=== PATIENT | male | born 1930 | race Caucasian/White ===

== ENCOUNTER 2017-03-22 14:16 | Inpatient (IN) ==
[2017-03-22 15:56] LABS: Basophils % 0.4 %; Eosinophils # 0.3 K/mcL (0.0-0.6); Eosinophils % 4.3 %; Hematocrit 35.5 % (37.5-50.1); Hemoglobin 11.2 g/dL (12.9-16.9); Immature Granulocytes % 0.4 % (0-4); Lymphocytes # 1.9 K/mcL (0.6-4.6); Lymphocytes % 28.5 %; Mean Corpuscular HGB Conc 31.5 g/dL (31.6-35.5); Mean Corpuscular Hemoglobin 28.6 pg (28.0-33.3); Mean Corpuscular Volume 90.6 fL (83.0-100.0); Mean Platelet Volume 9.5 fL (9.4-12.4); Monocytes # 0.6 K/mcL (0.0-1.3); Monocytes % 9.3 %; Neutrophils # 3.9 K/mcL (1.6-8.9); Platelet Count 265 K/mcL (140-400); Red Blood Count 3.92 M/mcL (4.19-5.50); Red Cell Distribution Width 14.6 % (11.5-14.5); Segmented Neutrophils % 57.1 %
[2017-03-22] MEDS ORDERED: Naloxone 0.4 MG/ML INJ IVP PRN (15:57)
[2017-03-22] MEDS ORDERED: Ondansetron 4 MG/2 ML VIAL IVP PRN (15:57)
[2017-03-22] MEDS ORDERED: *HR* HYDROcodone/Acet 5/325 mg TABLET PO PRN (15:57)
[2017-03-22] MEDS ORDERED: *HR* Morphine 2 MG/ML SYRINGE IVP PRN (15:57)
[2017-03-22] MEDS ORDERED: Acetaminophen 325 MG TABLET PO PRN (15:57)
[2017-03-22] MEDS ORDERED: Piperacillin/Tazobactam 3.375 GM/200 ML BAG IVPB SCH (16:00)
[2017-03-22 16:04] LABS: BUN/Creatinine Ratio 24 (6-26); Blood Urea Nitrogen 19 mg/dL (8-26); C-Reactive Protein 35 mg/L (Less than 5); Calcium 9.1 mg/dL (8.6-10.8); Carbon Dioxide 32 mEq/L (19-29); Chloride 102 mEq/L (98-109); Glucose 84 mg/dL (70-99); Osmolality,Calculated 289 (280-300); Potassium 4.1 mEq/L (3.5-4.5); Sodium 139 mEq/L (136-145); eGFR For African Americans > 60 (> 60); eGFR For Non-African Americans > 60 (> 60)
[2017-03-22] MEDS ORDERED: [UNRECOGNIZED DRUG - OTHER] TP PRN (16:16)
--- NOTE | 2017-03-22 16:17 | Internal Med History&Physical ---
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 Gtz is a 86 year old male Past Med Surg Social Fam HX - Past Medical History Medical history: cancer, GERD, hyperlipidemia, venous stasis, other Psychiatric history: no psych history - Past Surgical History Surgical History: cataract, cholecystectomy, herniorrhaphy, vascular surgery - Social History Smoking Status: Never smoker Smokeless Tobacco Status: No Alcohol use: none Drug use: none - Family History Mother Living Status: Hx Family Neuromuscular Disorders: Yes (subarachnoid hemorrhage in 40's) Internal Medicine - H&P: Meds Antiox #11/Om3/Dha/Epa/Lut/[place] [Eye Health Adult 50+ Softgel] 1 each PO DAILY [History] Furosemide [Lasix] 20 mg PO BID 12/11/16 [History] Garlic 500 mg PO DAILY 12/11/16 [History] Multivit-Min/FA/Lycopen/Lutein [Adults 50+ Multivitamin Tablet] 1 each PO DAILY 12/11/16 [History] Omeprazole [PriLOSEC] 20 mg PO DAILY 12/11/16 [History] Propranolol [Inderal] 20 mg PO BID 12/11/16 [History] Econazole Nitrate 1 appl TP DAILY PRN 01/31/17 [History] Aspirin Enteric Coated [Aspirin EC] 81 mg PO DAILY 03/22/17 [History] Calcium Carbonate/Vitamin D3 [Calcium 1,000 + D3 Caplet] 1 each PO DAILY [History] FLUoxetine HCl [PROzac] 20 mg PO DAILY 03/22/17 [History] Potassium 99 mg PO DAILY 03/22/17 [History] Tamsulosin [Flomax] 0.4 mg PO DAILY 03/22/17 [History] 3 Allergy/AdvReac Type Severity Reaction Status Date / Time No Known Allergies Allergy Verified 01/03/17 09:01 All Systems PM: A 10-system review of systems was performed and is negative for pertinent findings except as documented above in the HPI. Internal Med - H&P Results - Labs CBC & Chem 7: 03/22/17 15:44 03/22/17 15:44 Labs: Short CBC 03/22/17 Range/Units 15:44 WBC 6.8 (4.3-11.1) K/mcL Hgb 11.2 L (12.9-16.9) g/dL Hct 35.5 L (37.5-50.1) % Plt Count 265 (140-400) K/mcL Neutrophils # 3.9 (1.6-8.9) K/mcL BMP 03/22/17 15:44 Sodium 139 Potassium 4.1 Chloride 102 Carbon Dioxide 32 H BUN 19 Creatinine 0.80 Glucose 84 Calcium 9.1
[2017-03-22] MEDS: Vancomycin 750 MG in D5% in Water 250 ML IVPB SCH (16:43)
--- NOTE | 2017-03-22 17:22 | Podiatry History & Physical ---
History of Present Illness Chief complaint: Redness swelling and pain right leg HPI: Mr. Gtz is a 86 year old male who presented to wound care clinic today with his with increasing redness and swelling and pain in his right leg. Patient has been treated for venous insufficiency peripheral edema and venous ulcerations of his large leg with remissions exacerbations. He is also complaining of right ankle pain as well. His states that he is complaining of malaise fatigue. He does not specifically complain of chest pain or shortness of breath nausea vomiting fever or chills. All Systems Reviewed: A 10-system review of systems was performed and is negative for pertinent findings except as documented above in the HPI. Past Med Surg Social Fam HX - Past Medical History Medical history: cancer, GERD, hyperlipidemia, venous stasis, other Psychiatric history: no psych history - Past Surgical History Surgical History: cataract, cholecystectomy, herniorrhaphy, vascular surgery - Social History Smoking Status: Never smoker Smokeless Tobacco Status: No Alcohol use: none Drug use: none - Family History Mother Living Status: Hx Family Neuromuscular Disorders: Yes (subarachnoid hemorrhage in 40's) Father Hx Family Neuromuscular Disorders: Yes Medications and Allergies Antiox #11/Om3/Dha/Epa/Lut/[place] [Eye Health Adult 50+ Softgel] 1 each PO DAILY [History] Furosemide [Lasix] 20 mg PO BID 12/11/16 [History] Garlic 500 mg PO DAILY 12/11/16 [History] Multivit-Min/FA/Lycopen/Lutein [Adults 50+ Multivitamin Tablet] 1 each PO DAILY 12/11/16 [History] Omeprazole [PriLOSEC] 20 mg PO DAILY 12/11/16 [History] Propranolol [Inderal] 20 mg PO BID 12/11/16 [History] Econazole Nitrate 1 appl TP DAILY PRN 01/31/17 [History] Aspirin Enteric Coated [Aspirin EC] 81 mg PO DAILY 03/22/17 [History] Calcium Carbonate/Vitamin D3 [Calcium 1,000 + D3 Caplet] 1 each PO DAILY [History] FLUoxetine HCl [PROzac] 20 mg PO DAILY 03/22/17 [History] Potassium 99 mg PO DAILY 03/22/17 [History] Tamsulosin [Flomax] 0.4 mg PO DAILY 03/22/17 [History] 3 Allergy/AdvReac Type Severity Reaction Status Date / Time No Known Allergies Allergy Verified 01/03/17 09:01 Physical Exam - Constitutional General appearance: average body habitus - Extremities Exam Extremities exam: Present: normal capillary refill, pedal edema - Expanded Lower Extremities Exam Lower Leg exam: Present: erythema, swelling, tenderness Ankle exam: Present: deformity (Patient's right foot is in a fixed pronated position) - Neurological Exam Neurological exam: Present: abnormal gait - Skin Additional comments: We observe hyperkeratosis pealing scaling of the right leg from the knee to toes consistent with trophic changes of the skin and venous insufficiency. Obviously stomatitis with hyperpigmentation and hypopigmentation. Open venous ulcers on the medial and lateral aspect of the right leg. There is spontaneously draining laterally. Ulcers are approximately 4 cm long 2 cm Y0.2 centimeters deep on the lateral aspect. Proximally 7 cm long 3 cm wide and 0.2 cm deep on the medial aspect although these are dry. No undermining no sinus tract no tunneling. - Ankle & Foot Appearance ankle: swelling, erythema Foot appearance: swelling, erythema Tenderness with palpation ankle: anteromedial ankle, lateral ankle Results - Labs Result Diagrams: 03/22/17 15:44 03/22/17 15:44 Labs: Abnormal lab results RBC 3.92 M/mcL (4.19-5.50) L 03/22/17 15:44 Hgb 11.2 g/dL (12.9-16.9) L 03/22/17 15:44 Hct 35.5 % (37.5-50.1) L 03/22/17 15:44 MCHC 31.5 g/dL (31.6-35.5) L 03/22/17 15:44 RDW 14.6 % (11.5-14.5) H 03/22/17 15:44 ESR 114 mm/hr (0-10) H 03/22/17 15:44 Carbon Dioxide 32 mEq/L (19-29) H 03/22/17 15:44 C-Reactive Protein 35 mg/L (Less than 5) H 03/22/17 15:44 H & H 03/22/17 Range/Units 15:44 Hgb 11.2 L (12.9-16.9) g/dL Hct 35.5 L (37.5-50.1) % All other labs normal. - Diagnostic results Ankle/Foot x-ray: pending Assessment and Plan (1) Cellulitis of right leg Current visit: Yes Status: Acute Assessment: #1 cellulitis of the right leg secondary to venous insufficiency/ venous ulcerations and peripheral edema chronic. #2 multiple comorbidities as outlined in history #3 fatigue and malaise unknown cause Plan: #1 admit for intravenous antibiotics and local wound care every 12 hours #2 request internal medicine consultation for management of his comorbidities and evaluation of his fatigue malaise #3 consider placement for extended rehabilitation and wound care and appropriate antibiotics as necessary.
[2017-03-22] MEDS: Cefepime HCl 1,000 MG in Water for inj. (sterile) 10 ML IVP SCH (17:28)
[2017-03-22] MEDS ORDERED: Cefepime HCl 1,000 MG in D5% in Water (Mini-Bag+) 100 ML IVPB SCH (18:00)
[2017-03-22] MEDS: Furosemide 20 MG TABLET PO SCH (20:52)
[2017-03-23 05:12] LABS: Basophils % 0.5 %; Eosinophils # 0.5 K/mcL (0.0-0.6); Eosinophils % 7.2 %; Hematocrit 34.6 % (37.5-50.1); Immature Granulocytes % 0.3 % (0-4); Lymphocytes # 1.8 K/mcL (0.6-4.6); Lymphocytes % 28.4 %; Mean Corpuscular HGB Conc 31.8 g/dL (31.6-35.5); Mean Corpuscular Hemoglobin 28.6 pg (28.0-33.3); Mean Corpuscular Volume 90.1 fL (83.0-100.0); Mean Platelet Volume 9.4 fL (9.4-12.4); Monocytes # 0.7 K/mcL (0.0-1.3); Monocytes % 10.5 %; Neutrophils # 3.5 K/mcL (1.6-8.9); Platelet Count 239 K/mcL (140-400); Red Blood Count 3.84 M/mcL (4.19-5.50); Red Cell Distribution Width 14.6 % (11.5-14.5); Segmented Neutrophils % 53.1 %
[2017-03-23] MEDS: Cefepime HCl 1,000 MG in Water for inj. (sterile) 10 ML IVP SCH ×2 (05:19→16:53)
[2017-03-23 05:26] LABS: Alanine Aminotransferase 14 Units/L (0-55); Albumin 2.6 g/dL (3.5-5.0); Albumin/Globulin Ratio 0.6 (1.1-2.2); Alkaline Phosphatase 85 Units/L (38-126); Aspartate Amino Transferase 19 Units/L (5-34); BUN/Creatinine Ratio 24 (6-26); Bilirubin,Total 0.5 mg/dL (0.2-1.2); Blood Urea Nitrogen 19 mg/dL (8-26); Calcium 8.6 mg/dL (8.6-10.8); Carbon Dioxide 32 mEq/L (19-29); Chloride 101 mEq/L (98-109); Globulin 4.3 g/dL (2.4-3.5); Glucose 95 mg/dL (70-99); Osmolality,Calculated 288 (280-300); Potassium 4.1 mEq/L (3.5-4.5); Sodium 138 mEq/L (136-145); Total Protein 6.9 g/dL (6.0-8.3); eGFR For African Americans > 60 (> 60); eGFR For Non-African Americans > 60 (> 60)
[2017-03-23] MEDS: Vancomycin 750 MG in D5% in Water 250 ML IVPB SCH (05:33)
[2017-03-23] MEDS: Furosemide 20 MG TABLET PO SCH ×2 (08:28→20:37)
[2017-03-23] MEDS: Aspirin Enteric Coated 81 MG Tablet PO SCH (08:28)
[2017-03-23] MEDS: (Garlic [Garlic] 500 MG) PO SCH (08:29)
--- NOTE | 2017-03-23 08:48 | Internal Medicine Consult Note ---
Date of Encounter: 03/22/17 Time of Encounter: 16:00 - Assessment and Plan (1) Cellulitis of right leg Current Visit: Yes Status: Acute Assessment and plan: This is late entry for his consult notes. I did see this pt y/d evening and talked to his at bed side.. Also explained to her about current plan of care. Continue current excellent care by primary team He does have significant erythema.. His ESR is also significantly elevated will start him on broad spec abx Cefepime + vancomycin Does not look septic will obtain wound cx.. depending on that will deescalate his abx later continue wound care as per primary team management keep continuing KELSEY wraps I wanted to thanks Dr. Roque for allowing us to participate in your pt's medical care. (2) Venous ulcer of right leg Current Visit: Yes Status: Acute Assessment and plan: Cont empirical abx will f/u on wound cx (3) Venous insufficiency of right leg Current Visit: Yes Status: Acute Assessment and plan: following with vascular surgeon as an out pt (4) GERD (gastroesophageal reflux disease) Current Visit: Yes Status: Acute Assessment and plan: on PPI Qualifiers: Qualified Code(s): K21.9 - Gastro-esophageal reflux disease without esophagitis (5) Essential tremor Current Visit: Yes Status: Acute Assessment and plan: resumed home med propranolol (6) Frequent falls Current Visit: Yes Status: Acute Assessment and plan: did mention he had few falls recently will get PT / OT eval also wondering he may need SNF placement for short term PT / OT Will consult SW (7) Physical deconditioning Current Visit: Yes Status: Acute Assessment and plan: PT / OT eval Internal Medicine - CN: HPI - Data of Consult Patient: new to practice Requesting Physician: Asad Roque, - Consult Narrative Reason for consult: Medical management / Abx management History of present illness: Mr. Gtz is a 86 year old male with known PMH of Chronic Rt leg ulcer, venous stasis, HLD, GERD, essential tremor pt following with manager integrity Dr. Roque closely for his chronic Rt leg venous stasis ulcer and cellulites. Today he presented to his office with worsening swelling and redness in Rt leg. Also he started oozing more purulent secretions through venous ulcerations over Rt howe and above heel region. Pt got admitted into hospital by Traffic Control Signaler and we are asked to manage his medical problems and abx. Pt is alert, awake and O x 3. Denied any CP / SOB. Spoke to his at bed side. Past Med Surg Social Fam HX - Past Medical History Medical history: cancer, GERD, hyperlipidemia, venous stasis, other (Essential tremors) Psychiatric history: no psych history - Past Surgical History Surgical History: cataract, cholecystectomy, herniorrhaphy, vascular surgery - Social History Smoking Status: Never smoker Smokeless Tobacco Status: No Alcohol use: none Drug use: none - Family History Mother Living Status: Hx Family Neuromuscular Disorders: Yes (subarachnoid hemorrhage in 40's) Father Hx Family Neuromuscular Disorders: Yes Review of systems: Reviewed all the systems everything is benign except the systems and symptoms I mentioned in HPI Internal Medicine - CN: Meds Antiox #11/Om3/Dha/Epa/Lut/[place] [Eye Health Adult 50+ Softgel] 1 each PO DAILY [History] Furosemide [Lasix] 20 mg PO BID 12/11/16 [History] Garlic 500 mg PO DAILY 12/11/16 [History] Multivit-Min/FA/Lycopen/Lutein [Adults 50+ Multivitamin Tablet] 1 each PO DAILY 12/11/16 [History] Omeprazole [PriLOSEC] 20 mg PO DAILY 12/11/16 [History] Propranolol [Inderal] 20 mg PO BID 12/11/16 [History] Econazole Nitrate 1 appl TP DAILY PRN 01/31/17 [History] Aspirin Enteric Coated [Aspirin EC] 81 mg PO DAILY 03/22/17 [History] Calcium Carbonate/Vitamin D3 [Calcium 1,000 + D3 Caplet] 1 each PO DAILY [History] FLUoxetine HCl [PROzac] 20 mg PO DAILY 03/22/17 [History] Potassium 99 mg PO DAILY 03/22/17 [History] Tamsulosin [Flomax] 0.4 mg PO DAILY 03/22/17 [History] 3 Allergy/AdvReac Type Severity Reaction Status Date / Time No Known Allergies Allergy Verified 01/03/17 09:01 Internal Medicine - CN: Exam - Constitutional Vitals: Temp Pulse Resp BP Pulse Ox 97.8 F 84 16 128/77 96 03/23/17 06:59 03/23/17 06:59 03/23/17 06:59 03/23/17 06:59 03/23/17 06:59 General appearance IM: Present: A&O X 3, no acute distress - Head Head exam: Present: atraumatic, normal inspection - Neck Neck exam general surgery: Present: supple - Respiratory Respiratory exam: Present: decreased breath sounds. Absent: rales, respiratory distress, rhonchi, wheezes - Cardiovascular Cardiovascular exam IM: Present: RRR, +S1, +S2. Absent: systolic murmur, tachycardia - GI/Abdominal GI/Abdominal exam IM: Present: soft. Absent: distended, rebound, rigid, tenderness - Extremities Exam Extremities exam IM: Present: pedal edema. Absent: calf tenderness, tenderness Additional comments: diffuse erythema all over Rt lower leg extending from ankle to proximal 1/3 of Rt leg. Moderate swelling +. chronic deformity over Rt ankle / above the heel region. Non healing ulcer over Rt ankle and a couple of venous stasis ulcer over Rt mid howe and posterior region. - Back Exam Back exam: Absent: CVA tenderness (L), CVA tenderness (R) - Neurological Exam Neurological exam: Present: alert, oriented X3, strengths equal and symetr throughout. Absent: facial droop, speech deficit - Psychiatric Psychiatric exam: Present: normal affect, normal mood - Skin Skin exam IM: Present: erythema Internal Medicine - CN: Reslt - Labs CBC & Chem 7: 03/23/17 04:57 03/23/17 04:57 Labs: Short CBC 03/22/17 03/23/17 Range/Units 15:44 04:57 WBC 6.8 6.5 (4.3-11.1) K/mcL Hgb 11.2 L 11.0 L (12.9-16.9) g/dL Hct 35.5 L 34.6 L (37.5-50.1) % Plt Count 265 239 (140-400) K/mcL Neutrophils # 3.9 3.5 (1.6-8.9) K/mcL BMP 03/22/17 03/23/17 15:44 04:57 Sodium 139 138 Potassium 4.1 4.1 Chloride 102 101 Carbon Dioxide 32 H 32 H BUN 19 19 Creatinine 0.80 0.80 Glucose 84 95 Calcium 9.1 8.6 Liver Function 03/23/17 Range/Units 04:57 Total Bilirubin 0.5 (0.2-1.2) mg/dL AST 19 (5-34) Units/L ALT 14 (0-55) Units/L Alkaline Phosphatase 85 (38-126) Units/L Albumin 2.6 L (3.5-5.0) g/dL Consult Discharge Plan - Plan Referrals: Star Pierre DO [Primary Care Provider] -
[2017-03-23] MEDS ORDERED: Clotrimazole 1% CRM 15 GM TUBE TP PRN (11:00)
--- NOTE | 2017-03-23 12:09 | Internal Med Progress Note ---
Date of Encounter: 03/23/17 Time of Encounter: 09:00 - Assessment and plan (1) Cellulitis of right leg Current Visit: Yes Status: Acute Assessment and plan: Improving erythema WBC - WNL Cont him on broad spec abx Cefepime + vancomycin Does not look septic will obtain wound cx.. depending on that will deescalate his abx later continue wound care as per primary team keep continuing KELSEY wraps (2) Venous ulcer of right leg Current Visit: Yes Status: Acute Assessment and plan: Cont empirical abx will f/u on wound cx (3) Venous insufficiency of right leg Current Visit: Yes Status: Acute Assessment and plan: following with vascular surgeon as an out pt (4) GERD (gastroesophageal reflux disease) Current Visit: Yes Status: Acute Assessment and plan: on PPI Qualifiers: Qualified Code(s): K21.9 - Gastro-esophageal reflux disease without esophagitis (5) Essential tremor Current Visit: Yes Status: Acute Assessment and plan: Cont home med propranolol (6) Frequent falls Current Visit: Yes Status: Acute Assessment and plan: Waiting on PT / OT eval SW consulted for possible SNF placement for short term PT / OT (7) Physical deconditioning Current Visit: Yes Status: Acute - Subjective Interval history: Mr. Gtz is a 86 year old male with known PMH of BPH, Chronic Rt leg ulcer, venous stasis, HLD, GERD, essential tremor pt following with od grinder operator Dr. Roque closely for his chronic Rt leg venous stasis ulcer and cellulites pt admitted here with worsening swelling and redness in Rt leg. He stated he is feeling little better. Erythema in Rt leg seems to be little better . Denied any CP / SOB. No events over night - Constitutional Vitals: Temp Pulse Resp BP Pulse Ox 98.2 F 76 18 134/78 99 03/23/17 10:12 03/23/17 10:12 03/23/17 10:12 03/23/17 10:12 03/23/17 10:12 General appearance: Present: A&O X 3, no acute distress - Head Head exam: Present: atraumatic, normal inspection - Neck Neck exam general surgery: Present: supple - Respiratory Respiratory exam: Present: decreased breath sounds. Absent: rales, respiratory distress, rhonchi, wheezes - Cardiovascular Cardiovascular exam: Present: RRR, +S1, +S2. Absent: tachycardia - GI/Abdominal GI/Abdominal exam: Present: normal bowel sounds, soft. Absent: rebound, rigid, tenderness - Extremities Exam Extremities exam: Present: pedal edema. Absent: calf tenderness, tenderness Additional comments: Improving erythema and swelling in Rt leg - Back Exam Back exam: Absent: CVA tenderness (L), CVA tenderness (R) - Neurological Exam Neurological exam: Present: alert, oriented X3 - Psychiatric Psychiatric exam: Present: normal affect, normal mood Internal Medicine: Result - Labs CBC & Chem 7: 03/23/17 04:57 03/23/17 04:57 Labs: Short CBC 03/22/17 03/23/17 Range/Units 15:44 04:57 WBC 6.8 6.5 (4.3-11.1) K/mcL Hgb 11.2 L 11.0 L (12.9-16.9) g/dL Hct 35.5 L 34.6 L (37.5-50.1) % Plt Count 265 239 (140-400) K/mcL Neutrophils # 3.9 3.5 (1.6-8.9) K/mcL BMP 03/22/17 03/23/17 15:44 04:57 Sodium 139 138 Potassium 4.1 4.1 Chloride 102 101 Carbon Dioxide 32 H 32 H BUN 19 19 Creatinine 0.80 0.80 Glucose 84 95 Calcium 9.1 8.6 Liver Function 03/23/17 Range/Units 04:57 Total Bilirubin 0.5 (0.2-1.2) mg/dL AST 19 (5-34) Units/L ALT 14 (0-55) Units/L Alkaline Phosphatase 85 (38-126) Units/L Albumin 2.6 L (3.5-5.0) g/dL Consult Discharge Plan - Plan Referrals: Star Pierre DO [Primary Care Provider] -
[2017-03-24] MEDS: Cefepime HCl 1,000 MG in Water for inj. (sterile) 10 ML IVP SCH ×2 (06:52→17:17)
[2017-03-24] MEDS: *HR* Enoxaparin 40 MG/0.4 ML SYRINGE SQ SCH (06:52)
[2017-03-24] MEDS: Vancomycin 1,000 MG in D5% in Water 250 ML IVPB SCH (07:46)
[2017-03-24] MEDS: Furosemide 20 MG TABLET PO SCH ×2 (07:51→19:51)
[2017-03-24] MEDS: Aspirin Enteric Coated 81 MG Tablet PO SCH (07:51)
--- NOTE | 2017-03-24 09:31 | Internal Med Progress Note ---
Date of Encounter: 03/24/17 Time of Encounter: 08:40 - Assessment and plan (1) Cellulitis of right leg Current Visit: Yes Status: Acute Assessment and plan: Improving erythema WBC - WNL Cont him on broad spec abx Cefepime + vancomycin wound cx - P Since his symptoms improved, will switch him to PO Levaquin iN AM continue wound care as per primary team keep continuing KELSEY wraps (2) Venous ulcer of right leg Current Visit: Yes Status: Acute Assessment and plan: Cont empirical abx will f/u on wound cx (3) Venous insufficiency of right leg Current Visit: Yes Status: Acute Assessment and plan: following with vascular surgeon as an out pt (4) GERD (gastroesophageal reflux disease) Current Visit: Yes Status: Acute Assessment and plan: on PPI Qualifiers: Qualified Code(s): K21.9 - Gastro-esophageal reflux disease without esophagitis (5) Essential tremor Current Visit: Yes Status: Acute Assessment and plan: Cont home med propranolol (6) Frequent falls Current Visit: Yes Status: Acute Assessment and plan: PT / OT donald SW consulted for possible SNF placement for short term PT / OT (7) Physical deconditioning Current Visit: Yes Status: Acute - Subjective Interval history: Mr. Gtz is a 86 year old male with known PMH of BPH, Chronic Rt leg ulcer, venous stasis, HLD, GERD, essential tremor pt following with service center technician Dr. Roque closely for his chronic Rt leg venous stasis ulcer and cellulites pt admitted here with worsening swelling and redness in Rt leg. He stated he is feeling little better. Erythema and swelling in Rt leg seems to be much better today . Denied any CP / SOB. No events over night - Constitutional Vitals: Temp Pulse Resp BP Pulse Ox 98.5 F 69 12 121/62 96 03/24/17 07:05 03/24/17 07:48 03/24/17 07:05 03/24/17 07:05 03/24/17 07:05 General appearance: Present: A&O X 3, no acute distress - Head Head exam: Present: atraumatic, normal inspection - Neck Neck exam general surgery: Present: supple - Respiratory Respiratory exam: Present: decreased breath sounds. Absent: rales, respiratory distress, rhonchi, wheezes - Cardiovascular Cardiovascular exam: Present: RRR, +S1, +S2. Absent: systolic murmur - GI/Abdominal GI/Abdominal exam: Present: normal bowel sounds, soft. Absent: rebound, rigid, tenderness - Extremities Exam Extremities exam: Present: pedal edema (Improving edema). Absent: calf tenderness, tenderness Additional comments: Improving erythema and swelling in Rt leg - Back Exam Back exam: Absent: CVA tenderness (L), CVA tenderness (R) - Neurological Exam Neurological exam: Present: alert, oriented X3 - Psychiatric Psychiatric exam: Present: normal affect, normal mood Internal Medicine: Result - Labs CBC & Chem 7: 03/23/17 04:57 03/23/17 04:57 Consult Discharge Plan - Plan Referrals: Star Pierre DO [Primary Care Provider] -
[2017-03-24] MEDS: (Garlic [Garlic] 500 MG) PO SCH (09:54)
--- NOTE | 2017-03-24 14:04 | Podiatry Progress Note ---
Date of Encounter: 03/24/17 Time of Encounter: 11:55 - Assessment and Plan (1) Cellulitis of right leg Current Visit: Yes Status: Acute c/w antibiotics and ordered woundcare. awaiting ecf placement. Subjective Interval history: patient in no acute distress. sitting up eating. no complaints. denies f/c/n/v. says Dr. Roque saw him last night. Objective - Vital Signs Vital Signs: Vital Signs Temp Pulse Resp BP Pulse Ox 03/24/17 12:46 115/66 03/24/17 12:00 97.4 F L 80 18 86/48 94 03/24/17 07:48 69 03/24/17 07:05 98.5 F 53 12 121/62 96 03/24/17 04:02 98.5 F 69 17 119/64 95 03/24/17 00:04 97.8 F 69 18 132/72 97 03/23/17 19:21 97.6 F 63 18 109/64 100 Intake and Output 03/23/17 03/24/17 03/24/17 23:59 07:59 15:59 Intake Total 610 / 610 Output Total 250 / 250 400 / 400 Balance -240 / -240 210 / 210 Intake: IV Fluids 250 / 250 Maxipime 1,000 MG In Water for inj. (sterile) 10 ML @ 150 mls/ hr IVP Q12HR [facility] Rx#:[id number] Vancocin 1,000 MG In Dextrose 5 250 / 250 % 250 ML @ 167 mls/hr IVPB Q24H [facility] Rx#:[id number] Oral 360 / 360 Output: Urine 250 / 250 400 / 400 Other: Meal Lunch Percent of Meal Consumed 100% Weight 71.9 kg Patient Weight 03/24/17 23:59 Weight 71.9 kg - Exam Exam: in no acute distress right LE bandage clean, dry, and intact. - Lab Result Diagrams: 03/23/17 04:57 03/23/17 04:57 Labs: Abnormal lab results RBC 3.84 M/mcL (4.19-5.50) L 03/23/17 04:57 Hgb 11.0 g/dL (12.9-16.9) L 03/23/17 04:57 Hct 34.6 % (37.5-50.1) L 03/23/17 04:57 RDW 14.6 % (11.5-14.5) H 03/23/17 04:57 ESR 114 mm/hr (0-10) H 03/22/17 15:44 Carbon Dioxide 32 mEq/L (19-29) H 03/23/17 04:57 C-Reactive Protein 35 mg/L (Less than 5) H 03/22/17 15:44 Albumin 2.6 g/dL (3.5-5.0) L 03/23/17 04:57 Globulin 4.3 g/dL (2.4-3.5) H 03/23/17 04:57 Albumin/Globulin Ratio 0.6 (1.1-2.2) L 03/23/17 04:57 Vancomycin Trough 4.6 mcg/mL (10-20) L 03/24/17 06:19 Microbiology, Last 48 Hours 03/23/17 16:45 Wound Culture - Preliminary Right Leg Gram Negative Neto Consult Discharge Plan - Plan Referrals: Star Pierre DO [Primary Care Provider] -
[2017-03-25] MEDS: Cefepime HCl 1,000 MG in Water for inj. (sterile) 10 ML IVP SCH (05:54)
[2017-03-25] MEDS: *HR* Enoxaparin 40 MG/0.4 ML SYRINGE SQ SCH (05:55)
[2017-03-25] MEDS: Vancomycin 1,000 MG in D5% in Water 250 ML IVPB SCH (05:55)
[2017-03-25] MEDS: (Garlic [Garlic] 500 MG) PO SCH (08:28)
[2017-03-25] MEDS: Furosemide 20 MG TABLET PO SCH ×2 (08:38→19:55)
[2017-03-25] MEDS: Aspirin Enteric Coated 81 MG Tablet PO SCH (08:38)
[2017-03-25] MEDS ORDERED: Aminoglycoside Consult 1 EACH MC ONE (09:02)
--- NOTE | 2017-03-25 14:45 | Internal Med Progress Note ---
Date of Encounter: 03/25/17 Time of Encounter: 14:43 - Assessment and plan (1) Cellulitis of right leg Current Visit: Yes Status: Acute Assessment and plan: Improving erythema WBC - WNL wound cx growing acinetobacter so switched abx to Augmentin continue wound care as per primary team keep continuing KELSEY wraps (2) Venous ulcer of right leg Current Visit: Yes Status: Acute Assessment and plan: Cont empirical abx will f/u on wound cx (3) Venous insufficiency of right leg Current Visit: Yes Status: Acute Assessment and plan: following with vascular surgeon as an out pt (4) Essential tremor Current Visit: Yes Status: Acute Assessment and plan: Cont home med propranolol (5) GERD (gastroesophageal reflux disease) Current Visit: Yes Status: Acute Assessment and plan: on PPI Qualifiers: Qualified Code(s): K21.9 - Gastro-esophageal reflux disease without esophagitis (6) Bilateral leg edema Current Visit: Yes Status: Chronic Assessment and plan: due to venous stasis cont Lasix (7) Frequent falls Current Visit: Yes Status: Acute Assessment and plan: PT / OT eval SW consulted for possible SNF placement for short term PT / OT (8) Physical deconditioning Current Visit: Yes Status: Acute - Subjective Interval history: Mr. Gtz is a 86 year old male with known PMH of BPH, Chronic Rt leg ulcer, venous stasis, HLD, GERD, essential tremor pt following with medical coding specialist Dr. Roque closely for his chronic Rt leg venous stasis ulcer and cellulites pt admitted here with worsening swelling and redness in Rt leg. He stated he is feeling little better. Erythema and swelling in Rt leg seems to be much better today . Denied any CP / SOB. No events over night - Constitutional Vitals: Temp Pulse Resp BP Pulse Ox 97.8 F 73 16 107/53 95 03/25/17 09:53 03/25/17 09:53 03/25/17 09:53 03/25/17 09:53 03/25/17 09:53 General appearance: Present: A&O X 3, no acute distress - Head Head exam: Present: atraumatic, normal inspection - Neck Neck exam general surgery: Present: supple - Respiratory Respiratory exam: Present: decreased breath sounds. Absent: rales, respiratory distress, rhonchi, wheezes - Cardiovascular Cardiovascular exam: Present: RRR, +S1, +S2. Absent: diastolic murmur, gallop, rubs, systolic murmur - GI/Abdominal GI/Abdominal exam: Present: normal bowel sounds, soft. Absent: rebound, rigid, tenderness - Extremities Exam Extremities exam: Present: pedal edema (improving). Absent: calf tenderness, tenderness Additional comments: improving erythema and swelling in Rt leg. - Back Exam Back exam: Absent: CVA tenderness (L), CVA tenderness (R) - Neurological Exam Neurological exam: Present: alert, oriented X3 Internal Medicine: Result - Labs CBC & Chem 7: 03/23/17 04:57 03/23/17 04:57 Consult Discharge Plan - Plan Referrals: Star Pierre DO [Primary Care Provider] -
--- NOTE | 2017-03-25 15:35 | Podiatry Progress Note ---
Date of Encounter: 03/25/17 Time of Encounter: 09:15 - Assessment and Plan (1) Cellulitis of right leg Current Visit: Yes Status: Acute c/w antibiotics and ordered woundcare. awaiting ecf placement. Subjective Interval history: patient in no acute distress. OOB in chair. no complaints. denies f/c/n/v. Objective - Vital Signs Vital Signs: Vital Signs Temp Pulse Resp BP Pulse Ox 03/25/17 09:53 97.8 F 73 16 107/53 95 03/25/17 07:00 98.3 F 68 16 104/56 97 03/24/17 23:54 98.0 F 66 18 100/52 98 03/24/17 20:15 98.0 F 65 17 98/52 98 03/24/17 15:45 98.1 F 63 16 95/49 98 Intake and Output 03/24/17 03/25/17 03/25/17 23:59 07:59 15:59 Intake Total 510 / 510 460 / 460 Output Total 150 / 150 350 / 350 225 / 225 Balance 360 / 360 -350 / -350 235 / 235 Intake: IV Fluids 260 / 260 Maxipime 1,000 MG In Water for 10 inj. (sterile) 10 ML @ 150 mls/ hr IVP Q12HR DARIO Rx#:[id number] Vancocin 1,000 MG In Dextrose 5 250 / 250 % 250 ML @ 167 mls/hr IVPB Q24H DARIO Rx#:[id number] Oral 500 / 500 200 / 200 Output: Urine 150 / 150 350 / 350 225 / 225 Other: Meal Dinner Breakfast Percent of Meal Consumed 100% 60% # Voids 1 Weight 71 kg Patient Weight 03/25/17 23:59 Weight 71 kg - Lab Result Diagrams: 03/23/17 04:57 03/23/17 04:57 Labs: Abnormal lab results RBC 3.84 M/mcL (4.19-5.50) L 03/23/17 04:57 Hgb 11.0 g/dL (12.9-16.9) L 03/23/17 04:57 Hct 34.6 % (37.5-50.1) L 03/23/17 04:57 RDW 14.6 % (11.5-14.5) H 03/23/17 04:57 ESR 114 mm/hr (0-10) H 03/22/17 15:44 Carbon Dioxide 32 mEq/L (19-29) H 03/23/17 04:57 C-Reactive Protein 35 mg/L (Less than 5) H 03/22/17 15:44 Albumin 2.6 g/dL (3.5-5.0) L 03/23/17 04:57 Globulin 4.3 g/dL (2.4-3.5) H 03/23/17 04:57 Albumin/Globulin Ratio 0.6 (1.1-2.2) L 03/23/17 04:57 Vancomycin Trough 4.6 mcg/mL (10-20) L 03/24/17 06:19 Microbiology, Last 48 Hours 03/23/17 16:45 Wound Culture - Final Right Leg Acinetobacter baumannii complx Consult Discharge Plan - Plan Referrals: Star Pierre DO [Primary Care Provider] -
[2017-03-26] MEDS: *HR* Enoxaparin 40 MG/0.4 ML SYRINGE SQ SCH (05:38)
[2017-03-26] MEDS: (Garlic [Garlic] 500 MG) PO SCH (08:47)
[2017-03-26] MEDS: Aspirin Enteric Coated 81 MG Tablet PO SCH (08:47)
[2017-03-26] MEDS: Furosemide 20 MG TABLET PO SCH (08:47)
--- NOTE | 2017-03-26 10:55 | Discharge Summary ---
Date of Encounter: 03/26/17 Time of Encounter: 10:47 - Discharge Diagnosis (1) Cellulitis of right leg Priority: Primary Status: Acute (2) Venous ulcer of right leg Priority: Primary Status: Acute (3) Venous insufficiency of right leg Priority: Primary Status: Acute (4) Essential tremor Priority: Secondary Status: Acute (5) GERD (gastroesophageal reflux disease) Priority: Secondary Status: Acute Qualifiers: Qualified Code(s): K21.9 - Gastro-esophageal reflux disease without esophagitis (6) Bilateral leg edema Priority: Secondary Status: Chronic (7) Frequent falls Priority: Secondary Status: Acute (8) Physical deconditioning Priority: Secondary Status: Acute - Discharge Medications Home Medications: Antiox #11/Om3/Dha/Epa/Lut/[place] [Eye Health Adult 50+ Softgel] 1 each PO DAILY [History] Furosemide [Lasix] 20 mg PO BID 12/11/16 [History] Garlic 500 mg PO DAILY 12/11/16 [History] Multivit-Min/FA/Lycopen/Lutein [Adults 50+ Multivitamin Tablet] 1 each PO DAILY 12/11/16 [History] Omeprazole [PriLOSEC] 20 mg PO DAILY 12/11/16 [History] Propranolol [Inderal] 20 mg PO BID 12/11/16 [History] Econazole Nitrate 1 appl TP DAILY PRN 01/31/17 [History] Aspirin Enteric Coated [Aspirin EC] 81 mg PO DAILY 03/22/17 [History] Calcium Carbonate/Vitamin D3 [Calcium 1,000 + D3 Caplet] 1 each PO DAILY [History] FLUoxetine HCl [Prozac] 20 mg PO DAILY 03/22/17 [History] Potassium 99 mg PO DAILY 03/22/17 [History] Tamsulosin [Flomax] 0.4 mg PO DAILY 03/22/17 [History] Amoxicillin/Clavulanate [Augmentin] 875 mg PO BIDWM #8 tablet 03/26/17 [Rx] Allergies/Adverse Reactions: 3 Allergy/AdvReac Type Severity Reaction Status Date / Time No Known Allergies Allergy Verified 01/03/17 09:01 Date of admission: 03/22/17 14:22 Primary care physician: Ender Joseph Consults: 03/22/17 15:16 Consult to Hospitalist [CONS] Routine Consulting Provider: Hospitalist Apogee Reason for Consult: Hypertension Time Notified: 15:19 Call Completed: Yes 03/22/17 15:23 Consult to Felt Dyeing Machine Tender [CONS] Routine Reason for SW Consult: Placement for rehabilitation and wound care 03/22/17 16:17 Consult to Nutrition [CONS] Routine Comment: Consulting Provider: NUTRITION Reason for Dietary Consult: MST Score 03/22/17 18:21 Consult to Occupational Therapy [CONS] Routine Comment: Evaluate, develop and implement POC Reason for Consult: eval and treat Requesting ECF on discharge Consult to Physical Therapy [CONS] Routine Comment: Evaluate, develop and implement POC Reason for Consult: eval and treat Requesting ECF on discharge. - Discharge Instructions Follow Up With: Star Pierre DO [Primary Care Provider] - Hospital course: Mr. Gtz is a 86 year old male - Time Spent with Patient Total time spent providing and/or coordinating discharge services: - Constitutional Vitals: Temp Pulse Resp BP Pulse Ox 98.5 F 75 16 124/58 93 03/26/17 06:51 03/26/17 06:51 03/26/17 06:51 03/26/17 06:51 03/26/17 06:51 General appearance: Present: A&O X 3, no acute distress
--- NOTE | 2017-03-26 11:08 | Internal Med Progress Note ---
Date of Encounter: 03/26/17 Time of Encounter: 11:06 - Assessment and plan (1) Cellulitis of right leg Current Visit: Yes Status: Acute Assessment and plan: Improving erythema WBC - WNL wound cx growing acinetobacter Cont Augmentin for 4 more days continue wound care as per primary team keep continuing KELSEY wraps Pt is medically stable to d/c SNF today... I did finish discharge medication reconciliation and informed the admitting provider Dr. Roque (2) Venous ulcer of right leg Current Visit: Yes Status: Acute Assessment and plan: Cont empirical abx (3) Venous insufficiency of right leg Current Visit: Yes Status: Acute Assessment and plan: following with vascular surgeon as an out pt (4) Essential tremor Current Visit: Yes Status: Acute Assessment and plan: Cont home med propranolol (5) GERD (gastroesophageal reflux disease) Current Visit: Yes Status: Acute Assessment and plan: on PPI Qualifiers: Qualified Code(s): K21.9 - Gastro-esophageal reflux disease without esophagitis (6) Bilateral leg edema Current Visit: Yes Status: Chronic Assessment and plan: due to venous stasis cont Lasix (7) Frequent falls Current Visit: Yes Status: Acute Assessment and plan: PT / OT eval SW consulted for possible SNF placement for short term PT / OT (8) Physical deconditioning Current Visit: Yes Status: Acute - Subjective Interval history: Mr. Gtz is a 86 year old male with known PMH of BPH, Chronic Rt leg ulcer, venous stasis, HLD, GERD, essential tremor pt following with gluer Dr. Roque closely for his chronic Rt leg venous stasis ulcer and cellulites pt admitted here with worsening swelling and redness in Rt leg. Pt was started on empirical abx Cefepime and Vancomycin.. He stated he is feeling little better. Erythema and swelling in Rt leg seems to be much better today . Denied any CP / SOB. No events over night - Constitutional Vitals: Temp Pulse Resp BP Pulse Ox 97.8 F 65 16 126/80 98 03/26/17 10:47 03/26/17 10:47 03/26/17 10:47 03/26/17 10:47 03/26/17 10:47 General appearance: Present: A&O X 3, no acute distress - Head Head exam: Present: atraumatic, normal inspection - Neck Neck exam general surgery: Present: supple - Respiratory Respiratory exam: Present: decreased breath sounds. Absent: rales, respiratory distress, rhonchi, wheezes - Cardiovascular Cardiovascular exam: Present: +S1, +S2 - GI/Abdominal GI/Abdominal exam: Present: normal bowel sounds, soft. Absent: rebound, rigid, tenderness - Extremities Exam Extremities exam: Present: pedal edema. Absent: calf tenderness, tenderness Additional comments: Improving erythema and swelling - Back Exam Back exam: Absent: CVA tenderness (L), CVA tenderness (R) - Neurological Exam Neurological exam: Present: alert, oriented X3 - Psychiatric Psychiatric exam: Present: normal affect, normal mood Internal Medicine: Result - Labs CBC & Chem 7: 03/23/17 04:57 03/23/17 04:57 Consult Discharge Plan - Plan Referrals: Star Pierre DO [Primary Care Provider] -
--- NOTE | 2017-03-26 12:38 | Physician Discharge Referral ---
ExtendedCare Referral Info Transfer To: SNF Provider in Charge: Mya Provider in Charge after Transfer: PCP (Facility PCO), Other (Facility Physician ) Institutional Level of Care: Skilled - Diagnosis (1) Cellulitis of right leg Status: Acute Expected Duration of Placement: 6 weeks Prognosis: Good Aware of Diagnosis: Patient, Family Aware of Prognosis: Patient, Family - Transfer Medications Home Medications: Antiox #11/Om3/Dha/Epa/Lut/[place] [Eye Health Adult 50+ Softgel] 1 each PO DAILY [History] Furosemide [Lasix] 20 mg PO BID 12/11/16 [History] Garlic 500 mg PO DAILY 12/11/16 [History] Multivit-Min/FA/Lycopen/Lutein [Adults 50+ Multivitamin Tablet] 1 each PO DAILY 12/11/16 [History] Omeprazole [PriLOSEC] 20 mg PO DAILY 12/11/16 [History] Propranolol [Inderal] 20 mg PO BID 12/11/16 [History] Econazole Nitrate 1 appl TP DAILY PRN 01/31/17 [History] Aspirin Enteric Coated [Aspirin EC] 81 mg PO DAILY 03/22/17 [History] Calcium Carbonate/Vitamin D3 [Calcium 1,000 + D3 Caplet] 1 each PO DAILY [History] FLUoxetine HCl [Prozac] 20 mg PO DAILY 03/22/17 [History] Potassium 99 mg PO DAILY 03/22/17 [History] Tamsulosin [Flomax] 0.4 mg PO DAILY 03/22/17 [History] Amoxicillin/Clavulanate [Augmentin] 875 mg PO BIDWM #8 tablet 03/26/17 [Rx] Allergies/Adverse Reactions: 3 Allergy/AdvReac Type Severity Reaction Status Date / Time No Known Allergies Allergy Verified 01/03/17 09:01 - Respiratory Orders Smoking Cessation: Smoking cessation has been advised. For more information, call the [place] Tobacco Quit Line at 5-446-MVZW-NOW. - Ancillary Orders May use pressure relief devices daily prn, May consult with Dentist, Marine Steward, Director Part PRN - Advance Directives Living Will: Yes Power of Dyslexia Teacher: Yes Code Status: Full Code - Mobility Orders Ambulate (Elevate legs) - Rehabiliation Orders Rehab Potential: Fair Rehab Orders: ROM Exercises, Evaluation for Occupational Therapy, Evaluation for Speech Therapy - Treatments List/Other: #1 Cleanse legs with mild soap and water daily #2 Apply adaptic over all open wound of right leg follow with gauze and kerlix then Coban every third day. #3 Elevate legs whenever possible #4 encourage participation with Rehab PT/OT daily/BID CERTIFICATION: I certify that the transfer of the above named patient to an Extended Care Facility is necessary for the continuing treatment of the diagnosis listed. The above information is true and accurate reflection of patient's current condition. Confidential - Redisclosure prohibited without a patient's written consent.
--- NOTE | 2017-03-26 17:39 | Podiatry Progress Note ---
Date of Encounter: 03/26/17 Time of Encounter: 12:50 - Assessment and Plan (1) Cellulitis of right leg Current Visit: Yes Status: Acute Assessment: #1 cellulitis of the right leg secondary to venous insufficiency/ venous ulcerations and peripheral edema chronic. #2 multiple comorbidities as outlined in history #3 fatigue and malaise unknown cause Plan: #1 admit for intravenous antibiotics and local wound care every 12 hours #2 request internal medicine consultation for management of his comorbidities and evaluation of his fatigue malaise #3 consider placement for extended rehabilitation and wound care and appropriate antibiotics as necessary. Subjective Principal diagnosis: Cellulitis right leg Interval history: Patient underwent intravenous antibiotics for culture pathogen. Please review microbiology report for specific isolates. He underwent local wound care with marked improvement of the soft tissue ulcerations/venous ulcers with his dramatic reduction in the overall edema and erythema of the right leg with resolution of the cellulitis with intravenous antibiotics Objective - Vital Signs Vital Signs: Vital Signs Temp Pulse Resp BP Pulse Ox 03/26/17 10:47 97.8 F 65 16 126/80 98 03/26/17 06:51 98.5 F 75 16 124/58 93 03/26/17 00:36 98.3 F 70 15 94/55 95 03/25/17 21:31 98.1 F 75 16 98/55 96 Intake and Output 03/26/17 03/26/17 03/26/17 07:59 15:59 23:59 Intake Total 720 / 720 Output Total 825 / 825 200 / 200 Balance -825 / -825 520 / 520 Intake: Oral 720 / 720 Output: Urine 825 / 825 200 / 200 Other: Meal Lunch Percent of Meal Consumed 100% # Voids 3 - Exam Exam: Venous ulcers and right leg essentially resolved. We still have chronic trophic changes of the skin associated with chronic edema. Incision: Present: healing, inflamed, clean and dry - Lab Result Diagrams: 03/23/17 04:57 03/23/17 04:57 Labs: Abnormal lab results RBC 3.84 M/mcL (4.19-5.50) L 03/23/17 04:57 Hgb 11.0 g/dL (12.9-16.9) L 03/23/17 04:57 Hct 34.6 % (37.5-50.1) L 03/23/17 04:57 RDW 14.6 % (11.5-14.5) H 03/23/17 04:57 ESR 114 mm/hr (0-10) H 03/22/17 15:44 Carbon Dioxide 32 mEq/L (19-29) H 03/23/17 04:57 C-Reactive Protein 35 mg/L (Less than 5) H 03/22/17 15:44 Albumin 2.6 g/dL (3.5-5.0) L 03/23/17 04:57 Globulin 4.3 g/dL (2.4-3.5) H 03/23/17 04:57 Albumin/Globulin Ratio 0.6 (1.1-2.2) L 03/23/17 04:57 Vancomycin Trough 4.6 mcg/mL (10-20) L 03/24/17 06:19 Microbiology, Last 48 Hours 03/23/17 16:45 Wound Culture - Final Right Leg Acinetobacter baumannii complx Consult Discharge Plan - Plan Instructions: Cellulitis (DC) Additional Instructions: #1 we will continue gently cleansing the right lower extremity with soap and water pat dry applied appropriate Unna boots 3 times a week and encourage elevation. We will also encourage rehabilitation strengthening and reconditioning twice a day until such time patient has improved to the point, where he can live independently Referrals: Star Pierre DO [Primary Care Provider] -
[2017-03-26 17:54] VITALS: BP 111/76
--- NOTE | 2017-04-09 17:35 | Discharge Summary ---
Date of Encounter: 03/26/17 Time of Encounter: 12:00 - Discharge Diagnosis (1) Cellulitis of right leg Priority: Primary Status: Acute - Discharge Medications Home Medications: Antiox #11/Om3/Dha/Epa/Lut/[place] [Eye Health Adult 50+ Softgel] 1 each PO DAILY [History] Furosemide [Lasix] 20 mg PO BID 12/11/16 [History] Garlic 500 mg PO DAILY 12/11/16 [History] Multivit-Min/FA/Lycopen/Lutein [Adults 50+ Multivitamin Tablet] 1 each PO DAILY 12/11/16 [History] Omeprazole [PriLOSEC] 20 mg PO DAILY 12/11/16 [History] Propranolol [Inderal] 20 mg PO BID 12/11/16 [History] Econazole Nitrate 1 appl TP DAILY PRN 01/31/17 [History] Aspirin Enteric Coated [Aspirin EC] 81 mg PO DAILY 03/22/17 [History] Calcium Carbonate/Vitamin D3 [Calcium 1,000 + D3 Caplet] 1 each PO DAILY [History] FLUoxetine HCl [Prozac] 20 mg PO DAILY 03/22/17 [History] Potassium 99 mg PO DAILY 03/22/17 [History] Tamsulosin [Flomax] 0.4 mg PO DAILY 03/22/17 [History] Amoxicillin/Clavulanate [Augmentin] 875 mg PO BIDWM #8 tablet 03/26/17 [Rx] Allergies/Adverse Reactions: 3 Allergy/AdvReac Type Severity Reaction Status Date / Time No Known Allergies Allergy Verified 01/03/17 09:01 Date of admission: 03/22/17 14:22 Primary care physician: Ender Joseph Consults: 03/22/17 15:16 Consult to Hospitalist [CONS] Routine Consulting Provider: Guilherme Alvarez Reason for Consult: Hypertension Time Notified: 15:19 Call Completed: Yes 03/22/17 15:23 Consult to Talent Acquisition Manager [CONS] Routine Reason for SW Consult: Placement for rehabilitation and wound care 03/22/17 16:17 Consult to Nutrition [CONS] Routine Comment: Consulting Provider: NUTRITION Reason for Dietary Consult: MST Score 03/22/17 18:21 Consult to Occupational Therapy [CONS] Routine Comment: Evaluate, develop and implement POC Reason for Consult: eval and treat Requesting ECF on discharge Consult to Physical Therapy [CONS] Routine Comment: Evaluate, develop and implement POC Reason for Consult: eval and treat Requesting ECF on discharge. Discharging clinician: Asad Roque Anticipated date of discharge: 03/26/17 - Patient Status Disposition: Transfer Inpatient Rehab Fac Condition: Good Functional capacity at discharge: uses cane/walker Overall status at discharge: patient is progressing back to baseline - Discharge Instructions Instructions: Cellulitis (DC) Follow Up With: Star Pierre DO [Primary Care Provider] - Additional Instructions: #1 we will continue gently cleansing the right lower extremity with soap and water pat dry applied appropriate Unna boots 3 times a week and encourage elevation. We will also encourage rehabilitation strengthening and reconditioning twice a day until such time patient has improved to the point, where he can live independently - Diet and Activity Diet: advance to your usual diet - Hospital Course Hospital course: Mr. Gtz is a 86 year old male - Time Spent with Patient Total time spent providing and/or coordinating discharge services:
== END 2017-03-26 18:35 | DRG 603 ==
LOC: 3NENU 14:22
PROVIDERS: ADMIT Family Medicine; ATTEND Podiatrist Foot Surgery

== ENCOUNTER 2018-02-10 09:00 | Inpatient (IN) ==
--- NOTE | 2018-02-10 09:57 | Emergency Department Note ---
Disposition Clinical Impression: Weakness, Sinus arrhythmia Fall Qualifiers: Encounter type: initial encounter Qualified Code(s): W19.XXXA - Unspecified fall, initial encounter Disposition: Admitted As Inpatient Condition: Fair Referrals: Star Pierre DO [Primary Care Provider] - Forms: ED Satisfaction Letter General Adult HPI - General Chief complaint: ED Fall Stated complaint: Dizzy Multiple Falls Time Seen by Provider: 02/10/18 09:04 Source: patient Mode of arrival: ambulatory Limitations: no limitations Nursing Notes Reviewed: Yes Vital Signs Reviewed: Yes - History of Present Illness HPI Narrative: 87-year-old male with significant past medical history of subarachnoid hemorrhage after a fall presenting to the emergency department with increase of falling. Patient states for the past few months he has been falling more frequently. Recently fell on his right hip and hit his head. Unknown loss of consciousness. Patient states he is on a baby aspirin but no other anticoagulation. He states he is able to walk but when he lays flat has right hip pain. Friend at bedside states she noticed that he has been leaning more to the right and has increased weakness of the left upper extremity for the past 2- 3 weeks. Patient denies any recent illnesses including fever, chest pain, shortness of breath. He states when he has had his falls he feels weak and di zzy. Denies any chest pain or shortness of breath. Pain Scale: 0 - Related Data Home Medications Medication Instructions Recorded Confirmed C,E,Zinc,Copper 11/Nnoly1q/Lut 1 each PO DAILY 12/11/16 05/23/17 [Eye Health Adult 50 Plus Sftgl] Furosemide [Lasix] 20 mg PO BID 12/11/16 05/23/17 Garlic 500 mg PO DAILY 12/11/16 05/23/17 Multivit-Min/FA/Lycopen/Lutein 1 each PO DAILY 12/11/16 05/23/17 [Adults 50+ Multivitamin Tablet] Omeprazole [PriLOSEC] 20 mg PO DAILY 12/11/16 05/23/17 Propranolol [Inderal] 20 mg PO BID 12/11/16 05/23/17 Econazole Nitrate 1 appl TP DAILY PRN 01/31/17 05/23/17 Aspirin Enteric Coated [Aspirin EC] 81 mg PO DAILY 03/22/17 05/23/17 Calcium Carbonate/Vitamin D3 1 each PO DAILY 03/22/17 05/23/17 [Calcium 1,000 + D3 Caplet] FLUoxetine HCl [Prozac] 20 mg PO DAILY 03/22/17 05/23/17 Potassium 99 mg PO DAILY 03/22/17 05/23/17 Tamsulosin [Flomax] 0.4 mg PO DAILY 03/22/17 05/23/17 Cephalexin [Keflex] 500 mg PO TID 05/23/17 05/23/17 Previous Rx's Medication Instructions Recorded Amoxicillin/Clavulanate [Augmentin] 875 mg PO BIDWM #8 tablet 03/26/17 Allergies Allergy/AdvReac Type Severity Reaction Status Date / Time No Known Allergies Allergy Verified 01/03/17 09:01 All systems ED: reviewed and negative except as stated. Constitutional: Denies: fever, chills Eyes: Reports: as per HPI ENT ED: Reports: as per HPI Cardiovascular: Denies: chest pain, palpitations, dyspnea on exertion Respiratory: Denies: cough, dyspnea, wheezes Gastrointestinal: Denies: abdominal pain, nausea, vomiting Genitourinary: Reports: as per HPI Musculoskeletal: Denies: back pain, neck pain Integumentary: Denies: rash, abrasion, lesions Neurological: Reports: weakness. Denies: numbness, paresthesias Psychiatric: Reports: as per HPI Endocrine: Reports: as per HPI Hematological/Lymphatic: Reports: as per HPI Allergic/Immunologic: Reports: as per HPI Past Medical History - Past Medical History Attestation: Yes The following information was validated with the patient. Medical history: Reports: cancer, GERD, hyperlipidemia, venous stasis, other Surgical history: Reports: cataract, cholecystectomy, herniorrhaphy, vascular s urgery Psychiatric history: Reports: no psych history - Social History Smoking Status: Never smoker Smokeless Tobacco Status: No Alcohol use: Reports: none Drug use: Reports: none Physical Exam - General Limitations: no limitations General appearance: alert, in no apparent distress - Head Head exam: atraumatic, normocephalic, normal inspection - Eye Eye exam: Present: normal appearance, PERRL, EOMI. Absent: scleral icterus, conjunctival injection - ENT ENT exam: normal exam, mucous membranes moist - Neck Neck exam: Present: normal inspection, full ROM. Absent: tenderness, meningismus - Chest Chest inspection: Present: normal inspection, symmetric chest wall rise. Absent: tenderness, rash - Respiratory Respiratory exam: Present: normal lung sounds bilaterally. Absent: respiratory distress, wheezes - Cardiovascular Cardiovascular exam: Present: regular rate, irregular rhythm - Abdominal Exam Abdominal exam: Present: soft, Non-Tender. Absent: distention, guarding, rebound - Extremities Exam Extremities exam: Present: other (All 4 extremities neurovascularly intact. Left upper extremity muscle strength 4 out of 5 compared to right upper extremity 5 out of 5.) - Expanded Lower Extremity Exam Hip/Pelvis exam: Present: other (Pelvis stable, tenderness to the right greater trochanter to deep palpation) - Neurological Exam Neurological exam: Present: alert, oriented X3 - Psychiatric Psychiatric exam: Present: normal affect, normal mood - Skin Skin exam: Present: warm, intact Course Course Narrative: 87-year-old male presenting for frequent falls and right hip pain after recent fall. Neurological exam shows weakness of the left upper extremity compared to right. Otherwise neurologically intact. Cerebellar exam within normal limits. Patient does have history of subarachnoid hemorrhage. In the room patient has irregular heartbeat but otherwise physical exam benign. We will obtain a pelvis x-ray along with a CT of the head with basic laboratory analysis, BMP, troponin EKG. Disposition most likely admission the pending results. Patient agrees with this plan. He is alert and oriented 3 and hemodynamically stable. - Reevaluation(s) Reevaluation #1: Patient's laboratory analysis benign. Radiographs and CT of the head within normal limits. Patient does have sinus arrhythmia on EKG. Due to patient's continued weakness and sinus arrhythmia with concern for frequent falls we will plan to admit the patient for further evaluation. Patient remains alert and oriented 3 in the room stable vital signs. I spoke with the hospitalist on- call who agrees to accept the patient at this time. Patient agrees with this plan. Vital Signs Temperature 98.1 F 02/10/18 09:04 Pulse Rate 58 02/10/18 09:04 Respiratory Rate 18 02/10/18 09:04 Blood Pressure 130/65 02/10/18 09:04 O2 Sat by Pulse Oximetry 95 02/10/18 09:04 Temperature 98.1 F 02/10/18 09:16 Pulse Rate 73 02/10/18 10:19 Respiratory Rate 18 02/10/18 10:19 Blood Pressure 125/66 02/10/18 10:19 O2 Sat by Pulse Oximetry 98 10/21/18 10:19 Oxygen Delivery Oxygen Delivery Room Air Medical Decision Making - Lab Data Result diagrams: 02/10/18 10:08 02/10/18 10:08 Lab Results 02/10/18 02/10/18 02/10/18 Range/Units 10:08 10:08 10:08 WBC 5.8 (4.3-11.1) K/mcL RBC 4.18 L (4.19-5.50) M/mcL Hgb 12.7 L (12.9-16.9) g/dL Hct 39.1 (37.5-50.1) % MCV 93.5 (83.0-100.0) fL MCH 30.4 (28.0-33.3) pg MCHC 32.5 (31.6-35.5) g/dL RDW 13.0 (11.5-14.5) % Plt Count 198 (140-400) K/mcL MPV 10.0 (9.4-12.4) fL Immature Gran % 0.2 (0-4) % Seg Neutrophils % 65.6 % Lymphocytes % 21.1 % Monocytes % 9.5 % Eosinophils % 3.3 % Basophils % 0.3 % Neutrophils # 3.8 (1.6-8.9) K/mcL Lymphocytes # 1.2 (0.6-4.6) K/mcL Monocytes # 0.6 (0.0-1.3) K/mcL Eosinophils # 0.2 (0.0-0.6) K/mcL Basophils # 0.0 (0.0-0.2) K/mcL Sodium 138 (136-145) mEq/L Potassium 4.3 (3.5-5.1) mEq/L Chloride 103 (98-107) mEq/L Carbon Dioxide 32 H (23-29) mEq/L BUN 23 (8-23) mg/dL Creatinine 0.93 (0.70-1.30) mg/dL Est GFR ( Amer) > 60 (> 60) Est GFR (Non-Af Amer) > 60 (> 60) BUN/Creatinine Ratio 25 (6-26) Glucose 89 (70-105) mg/dL Calculated Osmolality 289 (280-300) Calcium 8.9 (8.6-10.3) mg/dL Troponin I < 0.03 (< 0.04) ng/mL - EKG Data EKG #1 EKG attestation: Yes I reviewed and interpreted this EKG. EKG results narrative: Sinus arrhythmia. PVCs. 83 beats for minute. MN interval 172, QRS 127, QTC 4.2. No sign of acute ST segment elevation or ischemia. Compared to previous EKG completed on 2012 new sinus arrhythmia noted
--- NOTE | 2018-02-10 10:05 | Emergency Department Note ---
Disposition Clinical Impression: Concussion without loss of consciousness Qualifiers: Encounter type: initial encounter Qualified Code(s): S06.0X0A - Concussion without loss of consciousness, initial encounter Disposition: Still a Patient Referrals: Star Pierre DO [Primary Care Provider] - Forms: ED Satisfaction Letter General Adult HPI - General Chief complaint: ED Fall Stated complaint: Dizzy Multiple Falls Time Seen by Provider: 02/10/18 09:04 Source: patient Limitations: no limitations - History of Present Illness HPI Narrative: Attestation note: Patient was seen with the emergency medicine resident/nurse practitioner/physician tmd teacher assistant/transitional resident/medical student: Dr. ADIN BLAIR I have personally performed a face to face evaluation on this patient. I have reviewed and agree with history and physical examination patient management and disposition. Briefly the salient points of the case are as follows: A 7-year-old male prior history of falls subarachnoid in the past. Comes in with falls again, patient presents with several weeks of left upper extremity weakness per family. No external signs of trauma. Patient will get a head CT labs. Close observation. Disposition pending. Pain Scale: 0 - Related Data Home Medications Medication Instructions Recorded Confirmed C,E,Zinc,Copper 11/Jzeay1r/Lut 1 each PO DAILY 12/11/16 05/23/17 [Eye Health Adult 50 Plus Sftgl] Furosemide [Lasix] 20 mg PO BID 12/11/16 05/23/17 Garlic 500 mg PO DAILY 12/11/16 05/23/17 Multivit-Min/FA/Lycopen/Lutein 1 each PO DAILY 12/11/16 05/23/17 [Adults 50+ Multivitamin Tablet] Omeprazole [PriLOSEC] 20 mg PO DAILY 12/11/16 05/23/17 Propranolol [Inderal] 20 mg PO BID 12/11/16 05/23/17 Econazole Nitrate 1 appl TP DAILY PRN 01/31/17 05/23/17 Aspirin Enteric Coated [Aspirin EC] 81 mg PO DAILY 03/22/17 05/23/17 Calcium Carbonate/Vitamin D3 1 each PO DAILY 03/22/17 05/23/17 [Calcium 1,000 + D3 Caplet] FLUoxetine HCl [Prozac] 20 mg PO DAILY 03/22/17 05/23/17 Potassium 99 mg PO DAILY 03/22/17 05/23/17 Tamsulosin [Flomax] 0.4 mg PO DAILY 03/22/17 05/23/17 Cephalexin [Keflex] 500 mg PO TID 05/23/17 05/23/17 Previous Rx's Medication Instructions Recorded Amoxicillin/Clavulanate [Augmentin] 875 mg PO BIDWM #8 tablet 03/26/17 Allergies Allergy/AdvReac Type Severity Reaction Status Date / Time No Known Allergies Allergy Verified 01/03/17 09:01 Past Medical History - Past Medical History Medical history: Reports: cancer, GERD, hyperlipidemia, venous stasis, other Surgical history: Reports: cataract, cholecystectomy, herniorrhaphy, vascular surgery Psychiatric history: Reports: no psych history - Social History Smoking Status: Never smoker Smokeless Tobacco Status: No Alcohol use: Reports: none Drug use: Reports: none Physical Exam - General Limitations: no limitations General appearance: alert, in no apparent distress Course Vital Signs Temperature 98.1 F 02/10/18 09:04 Pulse Rate 58 02/10/18 09:04 Respiratory Rate 18 02/10/18 09:04 Blood Pressure 130/65 02/10/18 09:04 O2 Sat by Pulse Oximetry 95 02/10/18 09:04 Temperature 98.1 F 02/10/18 09:16 Pulse Rate 58 02/10/18 09:16 Respiratory Rate 18 02/10/18 09:16 Blood Pressure 130/65 02/10/18 09:16 O2 Sat by Pulse Oximetry 95 02/10/18 09:16 Oxygen Delivery Oxygen Delivery Room Air
[2018-02-10 10:19] LABS: Basophils % 0.3 %; Eosinophils # 0.2 K/mcL (0.0-0.6); Eosinophils % 3.3 %; Hematocrit 39.1 % (37.5-50.1); Hemoglobin 12.7 g/dL (12.9-16.9); Immature Granulocytes % 0.2 % (0-4); Lymphocytes # 1.2 K/mcL (0.6-4.6); Lymphocytes % 21.1 %; Mean Corpuscular HGB Conc 32.5 g/dL (31.6-35.5); Mean Corpuscular Hemoglobin 30.4 pg (28.0-33.3); Mean Corpuscular Volume 93.5 fL (83.0-100.0); Monocytes # 0.6 K/mcL (0.0-1.3); Monocytes % 9.5 %; Neutrophils # 3.8 K/mcL (1.6-8.9); Platelet Count 198 K/mcL (140-400); Red Blood Count 4.18 M/mcL (4.19-5.50); Segmented Neutrophils % 65.6 %
[2018-02-10 10:37] LABS: BUN/Creatinine Ratio 25 (6-26); Blood Urea Nitrogen 23 mg/dL (8-23); Calcium 8.9 mg/dL (8.6-10.3); Carbon Dioxide 32 mEq/L (23-29); Chloride 103 mEq/L (98-107); Glucose 89 mg/dL (70-105); Osmolality,Calculated 289 (280-300); Potassium 4.3 mEq/L (3.5-5.1); Sodium 138 mEq/L (136-145); eGFR For Non-African Americans > 60 (> 60)
[2018-02-10 10:41] LABS: Troponin I < 0.03 ng/mL (< 0.04)
--- NOTE | 2018-02-10 12:40 | Internal Med History&Physical ---
Date of Encounter: 02/10/18 Time of Encounter: 11:00 Internal Medicine - H&P: HPI Chief complaint: Fall Admitted From: Home Plans for Post Hospital Care: Transfer Detention Facility History of present illness: 87-year-old male with significant past medical history of subarachnoid hemorrhage after a fall in May presenting to the emergency department with frequent falls and increased weakness of the left upper extremity for the past 2-3 weeks. Patient denies any recent illnesses including fever, chest pain, shortness of breath. Neurological exam shows weakness of the left upper extremity compared to right. CT of the head within normal limits. There were also a concerns about sinus arrhythmia on EKG. His at bedside is scheduled foe cardiac cath in Am and she is considering temporary placement. The patient was admitted for further evaluation. Past Med Surg Social Fam HX - Past Medical History Medical history: cancer, GERD, hyperlipidemia, venous stasis, other Additional medical history: skin cancer Psychiatric history: no psych history - Past Surgical History Surgical History: cataract, cholecystectomy, herniorrhaphy, vascular surgery Additional surgical history: Vein ablasions - Social History Smoking Status: Never smoker Smokeless Tobacco Status: No Alcohol use: none Drug use: none - Family History Father Hx Family Neuromuscular Disorders: Yes Mother Living Status: Hx Family Neuromuscular Disorders: Yes (subarachnoid hemorrhage in 40's) Sister Hx Family Cancer: Yes Internal Medicine - H&P: Meds RX: C,E,Zinc,Copper 11/Ochjk4x/Lut [Eye Health Adult 50 Plus Sftgl] 1 cap PO BID 12/11/16 [History] RX: Furosemide [Lasix] 20 mg PO Q48H 12/11/16 [History] RX: Multivit-Min/FA/Lycopen/Lutein [Adults 50+ Multivitamin Tablet] 1 tab PO DAILY 12/11/16 [History] RX: Omeprazole [PriLOSEC] 20 mg PO DAILY 12/11/16 [History] RX: Aspirin Enteric Coated [Aspirin EC] 81 mg PO DAILY 03/22/17 [History] RX: Tamsulosin [Flomax] 0.4 mg PO DAILY 03/22/17 [History] RX: FLUoxetine HCl [Fluoxetine HCl] 40 mg PO DAILY 02/10/18 [History] RX: Sennosides [Natural Laxative] 8.6 mg PO 3XW 02/10/18 [History] RX: Triamcinolone Acet 0.1% CRM [Kenalog] 1 appl TP AD PRN 02/10/18 [History] RX: Carbidopa/Levodopa 25/100 [Sinemet 25/100] 0.5 each PO TID tablet 02/14/18 [Rx] RX: Metoprolol [Lopressor] 12.5 mg PO DAILY tablet 02/14/18 [Rx] Allergy/AdvReac Type Severity Reaction Status Date / Time No Known Allergies Allergy Verified 02/10/18 11:35 All Systems PM: A 10-system review of systems was performed and is negative for pertinent findings except as documented above in the HPI. - Constitutional Vitals: Temp Pulse Resp BP Pulse Ox 97.4 F L 92 16 134/74 90 02/10/18 12:33 02/10/18 12:33 02/10/18 12:33 02/10/18 12:33 02/10/18 12:33 Exam: General: Alert. In no acute distress. Head: atraumatic, normocephalic. Could not find any lesions from fall. Eyes: Pupils equal and round. Sclera white. EOMI. CV: RRR Resp: CTA, No rhonchi, or rales. No respiratory distress. Abd: normal BS x4. Non-tender. No guarding. Skin: good skin turgor. Dry, no open wounds. Extremities: no edema Internal Med - H&P Results - Labs CBC & Chem 7: 02/11/18 06:39 02/13/18 03:13 Labs: Short CBC 02/10/18 Range/Units 10:08 WBC 5.8 (4.3-11.1) K/mcL Hgb 12.7 L (12.9-16.9) g/dL Hct 39.1 (37.5-50.1) % Plt Count 198 (140-400) K/mcL Neutrophils # 3.8 (1.6-8.9) K/mcL BMP 02/10/18 10:08 Sodium 138 Potassium 4.3 Chloride 103 Carbon Dioxide 32 H BUN 23 Creatinine 0.93 Glucose 89 Calcium 8.9 Cardiac Enzymes 02/10/18 Range/Units 10:08 Troponin I < 0.03 (< 0.04) ng/mL - Impressions ITS Impressions Head CT 02/10/18 09:26 IMPRESSION: No acute intracranial abnormality. D/ / 02/10/2018 11:58:26 Trey Posey MD / kc Interpreting Provider: Trey Posey MD Pelvis X-Ray 02/10/18 09:26 IMPRESSION: No acute osseous abnormality of the pelvis. Mild osteopenia with mild degenerative changes of the hips bilaterally. D/ / Enrique Sheets MD / Enrique Sheets MD Interpreting Provider: Enrique Sheets MD - Assessment and plan (1) Frequent falls Status: Chronic Assessment and plan: The patient has increased weakness of the left upper extremity for the past 2-3 weeks. Neurological exam shows weakness of the left upper extremity compared to right. CT of the head within normal limits. We will consult neuro for further evaluation. (2) Physical deconditioning Status: Chronic Assessment and plan: His at bedside is scheduled for cardiac cath in Am and she is considering temporary placement. Both electrical maintenance worker and physical therapy were consulted for further evaluation. (3) GERD (gastroesophageal reflux disease) Status: Chronic Qualifiers: Esophagitis presence: esophagitis presence not specified Qualified Code(s): K21.9 - Gastro-esophageal reflux disease without esophagitis (4) Sinus arrhythmia Status: Chronic Assessment and plan: The patient is asymptomatic , consulting cardiology for further evaluation (5) Essential tremor Status: Chronic (6) DVT prophylaxis Status: Chronic - Time Spent With Patient Total time spent is greater than 50% in coordination of care (as documented) at patient's floor/unit and/or counseling patient:
[2018-02-10] MEDS ORDERED: Naloxone 0.4 MG/ML INJ IVP PRN (14:06)
[2018-02-10] MEDS ORDERED: Acetaminophen 325 MG TABLET PO PRN (14:06)
[2018-02-10 15:14] LABS: Cholesterol 166 mg/dL (< 200); HDL Cholesterol 55 mg/dL (40-59); LDL Cholesterol,Calculated 98 mg/dL (0-99); Triglycerides 63 mg/dL (< 150)
[2018-02-10 20:35] LABS: Bilirubin,Urine Negative (Negative); Blood,Urine Negative (Negative); Clarity,Urine Clear (Clear); Color,Urine Yellow (Yellow); Glucose,Urine (UA) Normal (Normal); Ketones,Urine Trace mg/dL (Negative); Leukocyte Esterase,Urine Trace (Negative); Nitrite,Urine Negative (Negative); PH,Urine 6.5 pH Units (5.0-8.0); Protein,Urine Trace mg/dL (Neg-Trace); Specific Gravity,Urine > 1.030 (1.010-1.025); Urobilinogen,Urine Normal (Normal)
[2018-02-10 20:36] LABS: Bacteria,Urine None Seen per hpf (None-Few); Hyaline Casts,Urine None Seen per lpf (None-Few); Squamous Epithelial Cell,Urine Moderate per lpf (None-Few); WBC,Urine 0-3 per hpf (0-3)
[2018-02-11] MEDS ORDERED: Triamcinolone Acet 0.1% CRM 15 GM TUBE TP PRN (06:04)
[2018-02-11 07:04] LABS: Basophils % 0.3 %; Eosinophils # 0.3 K/mcL (0.0-0.6); Eosinophils % 4.2 %; Hematocrit 37.7 % (37.5-50.1); Hemoglobin 12.3 g/dL (12.9-16.9); Immature Granulocytes % 0.3 % (0-4); Lymphocytes # 1.5 K/mcL (0.6-4.6); Lymphocytes % 25.5 %; Mean Corpuscular HGB Conc 32.6 g/dL (31.6-35.5); Mean Corpuscular Hemoglobin 30.3 pg (28.0-33.3); Mean Corpuscular Volume 92.9 fL (83.0-100.0); Mean Platelet Volume 10.1 fL (9.4-12.4); Monocytes # 0.6 K/mcL (0.0-1.3); Monocytes % 10.2 %; Neutrophils # 3.6 K/mcL (1.6-8.9); Platelet Count 188 K/mcL (140-400); Red Blood Count 4.06 M/mcL (4.19-5.50); Red Cell Distribution Width 12.9 % (11.5-14.5); Segmented Neutrophils % 59.5 %
[2018-02-11 07:54] LABS: Alanine Aminotransferase 14 Units/L (7-52); Albumin 3.5 g/dL (3.5-5.7); Albumin/Globulin Ratio 1.3 (1.1-2.2); Alkaline Phosphatase 71 Units/L (34-104); Aspartate Amino Transferase 19 Units/L (13-39); BUN/Creatinine Ratio 29 (6-26); Bilirubin,Total 0.9 mg/dL (0.3-1.0); Blood Urea Nitrogen 18 mg/dL (8-23); Calcium 8.7 mg/dL (8.6-10.3); Carbon Dioxide 29 mEq/L (23-29); Chloride 104 mEq/L (98-107); Globulin 2.8 g/dL (2.4-3.5); Glucose 100 mg/dL (70-105); Osmolality,Calculated 288 (280-300); Phosphorous 2.6 mg/dL (2.7-4.5); Potassium 4.3 mEq/L (3.5-5.1); Sodium 138 mEq/L (136-145); Total Protein 6.3 g/dL (6.4-8.9); eGFR For Non-African Americans > 60 (> 60)
[2018-02-11] MEDS: Multivit/Ca/Min/Fe/FA 1 TAB TABLET PO SCH ×3 (09:27→22:01)
[2018-02-11] MEDS: Furosemide 20 MG TABLET PO SCH (09:27)
[2018-02-11] MEDS: Aspirin Enteric Coated 81 MG Tablet PO SCH (09:27)
[2018-02-11] MEDS: Sennosides 8.6 MG TABLET PO SCH (09:27)
[2018-02-11] MEDS: FLUoxetine 20 MG CAPSULE PO SCH (09:27)
[2018-02-11] MEDS: GARLIC 500 MG PO SCH (09:28)
--- NOTE | 2018-02-11 09:29 | Internal Med Progress Note ---
Hospitalist Progress Note - Encounter Date of Encounter: 02/11/18 Time of Encounter: 09:27 - Subjective Interval History: Patient with history of subarachnoid hemorrhage, GERD, high cholesterol, patient was admitted with left upper extremity weakness for the last 2-3 weeks with recurrent fall CT of the head was unremarkable was noted some sinus arrh ythmia and am unable to find any rhythm strips no EKG patient is not on telemetry. cardiology consult for evaluation also neurology evaluation is pending. Patient is awake today alert no complaints his is having a cardiac catheter today - Exam Vitals: Temp Pulse Resp BP Pulse Ox 97.5 F L 91 13 125/57 91 02/11/18 07:56 02/11/18 07:56 02/11/18 07:56 02/11/18 07:56 02/11/18 07:56 Exam: HEENT normal exam chest bilat equal and clear CV RRR s1 s2 normal ABD soft non tender Neuro awake alert left arm weakness - Assessment and Plan (1) Essential tremor Current Visit: No Status: Acute Assessment and Plan: chronic we will continue home medication (2) Frequent falls Current Visit: No Status: Acute Assessment and Plan: Recurrent falls PT OT is consulted neurology consult is also pending (3) Physical deconditioning Current Visit: No Status: Acute Assessment and Plan: chronic OT and PT evaluation (4) Sinus arrhythmia Current Visit: Yes Status: Acute Assessment and Plan: no documented ekg or strip just asked nurse to place pt on tele cardiology consult pending - Time Spent with Patient Total time spent is greater than 50% in coordination of care (as documented) at patient's floor/unit and/or counseling patient: Internal Medicine: Result - Labs CBC & Chem 7: 02/11/18 06:39 02/11/18 06:39 Labs: Short CBC 02/10/18 02/11/18 Range/Units 10:08 06:39 WBC 5.8 6.0 (4.3-11.1) K/mcL Hgb 12.7 L 12.3 L (12.9-16.9) g/dL Hct 39.1 37.7 (37.5-50.1) % Plt Count 198 188 (140-400) K/mcL Neutrophils # 3.8 3.6 (1.6-8.9) K/mcL BMP 02/10/18 02/11/18 10:08 06:39 Sodium 138 138 Potassium 4.3 4.3 Chloride 103 104 Carbon Dioxide 32 H 29 BUN 23 18 Creatinine 0.93 0.62 L Glucose 89 100 Calcium 8.9 8.7 Cardiac Enzymes 02/10/18 Range/Units 10:08 Troponin I < 0.03 (< 0.04) ng/mL Liver Function 02/11/18 Range/Units 06:39 Total Bilirubin 0.9 (0.3-1.0) mg/dL AST 19 (13-39) Units/L ALT 14 (7-52) Units/L Alkaline Phosphatase 71 (34-104) Units/L Albumin 3.5 (3.5-5.7) g/dL Urine 02/10/18 Range/Units 20:12 Urine Color Yellow (Yellow) Urine Clarity Clear (Clear) Urine pH 6.5 (5.0-8.0) pH Units Ur Specific [place] > 1.030 H (1.010-1.025) Urine Protein Trace (Neg-Trace) mg/dL Urine Glucose (UA) Normal (Normal) mg/dL - Impressions Impressions Head CT 02/10/18 09:26 IMPRESSION: No acute intracranial abnormality. D/ / 02/10/2018 11:58:26 Trey Posey MD / ck Interpreting Provider: Trey Posey MD Pelvis X-Ray 02/10/18 09:26 IMPRESSION: No acute osseous abnormality of the pelvis. Mild osteopenia with mild degenerative changes of the hips bilaterally. D/ / Enrique Sheets MD / Enrique Sheets MD Interpreting Provider: nErique Sheets MD Consult Discharge Plan - Plan Referrals: Star Pierre DO [Primary Care Provider] -
--- NOTE | 2018-02-11 10:24 | Neurology - Consult Note ---
Date of Encounter: 02/11/18 Time of Encounter: 08:30 Assessment and Plan (1) Frequent falls Current Visit: Yes Status: Acute This patient who has an history of subarachnoid hemorrhage without any evidence of bleed on the CT scan noted to have history of frequent falls has been falling a lot on examination patient noted to have some tremors but along with it he did have a significant stiffness and cogwheeling rigidity and increased tone all over his body at the same time he did have a slight decrease in facial expressions his gait examination is quite guarded he is high risk for the fall Suspect patient has 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 Gtz is a 87 year old male with significant past medical history of subarachnoid hemorrhage after a fall in May presenting to the emergency department with frequent falls and increased weakness of the left upper extremity for the past 2-3 weeks. Patient denies any recent illnesses including fever, chest pain, shortness of breath. CT of the head within normal limits. There were also a concerns about sinus arrhythmia on EKG. The patient was admitted for further evaluation. Per history patient also having difficulty with ambulation and has multiple falls he denies any loss of consciousness Past Med Surg Social Fam HX - Past Medical History Medical history: cancer, GERD, hyperlipidemia, venous stasis, other Additional medical history: skin cancer Psychiatric history: no psych history - Past Surgical History Surgical History: cataract, cholecystectomy, herniorrhaphy, vascular surgery Additional surgical history: Vein ablasions - Social History Smoking Status: Never smoker Smokeless Tobacco Status: No Alcohol use: none Drug use: none - Family History Mother Living Status: Hx Family Neuromuscular Disorders: Yes (subarachnoid hemorrhage in 40's) Father Hx Family Neuromuscular Disorders: Yes Sister Hx Family Cancer: Yes Medications and Allergies C,E,Zinc,Copper 11/Padep5b/Lut [Eye Health Adult 50 Plus Sftgl] 1 cap PO BID 12/11/16 [History] Furosemide [Lasix] 20 mg PO Q48H 12/11/16 [History] Garlic 500 mg PO DAILY 12/11/16 [History] Multivit-Min/FA/Lycopen/Lutein [Adults 50+ Multivitamin Tablet] 1 tab PO DAILY 12/11/16 [History] Omeprazole [PriLOSEC] 20 mg PO DAILY 12/11/16 [History] Aspirin Enteric Coated [Aspirin EC] 81 mg PO DAILY 03/22/17 [History] Tamsulosin [Flomax] 0.4 mg PO DAILY 03/22/17 [History] FLUoxetine HCl [Fluoxetine HCl] 40 mg PO DAILY 02/10/18 [History] Ferrous Sulfate [Iron] 325 mg PO DAILY 02/10/18 [History] Sennosides [Natural Laxative] 8.6 mg PO 3XW 02/10/18 [History] Triamcinolone Acet 0.1% CRM [Kenalog] 1 appl TP AD PRN 02/10/18 [History] Allergy/AdvReac Type Severity Reaction Status Date / Time No Known Allergies Allergy Verified 02/10/18 11:35 All Systems: The remainder of the systems were reviewed and are negative Physical Examination - Vital Signs Vital Signs: Initial Vital Signs Temp Pulse Resp BP Pulse Ox 98.1 F 58 18 130/65 95 02/10/18 09:04 02/10/18 09:04 02/10/18 09:04 02/10/18 09:04 02/10/18 09:04 - Exam Exam: GENERAL: Comfortable in no acute distress HEENT: Normal LUNGS: CTA HEART: RRR, S1 S2 Audible, no murmur EXTREMITIES: No Pedal edema. DETAILED NEUROLOGICAL EXAMINATION: MENTAL STATUS: Oriented to person, place, date and situation. Memory: knows the President, Aware of recent events Recent Memory decreased attention span seems to be intact Cranial Nerve Examination: CN - II: Visual Acuity, Field of Vision Normal, Fundus examination: No disk edema, Pupils- size shape reaction to light and accommodation: All normal. CN III, IV, : External ocular movements were intact, Pupils were reactive, Nodrooping of the eyelids CN V: Sensation over the face to light touch and pinprick all normal. Corneal reflexes not tested, jaw jerk normal. CN VII: No facial asymmetry, no flattening of nasolabial folds, no difficulty in closing the eyes, no loss of forehead wrinkles, no difficulty in eye-closure, frowning raising eyebrows. CNVIII: No significant hearing loss CN IX, X: Uvula centralized not deviated, Gag reflex: Not tested CN X1: Sternocleidomastoid, trapezius, normal or evidence of any weakness. CN X11: No Dysarthria, no wasting or fibrilation f tongue muscles, no deviation, tongue muscle strength normal. Motor examination: Patient noted to have significant increasing tone all over his body predominantly on the left than on the right and mild tremors action related but significant cogwheeling noted throughout the whole axis No hypertrophy, tone was normal, power grade 0-5 Upper limbs Proximal- difficulty in lifting the arms above the head. Distal- No weakness in distal muscles On formal testing 4/4 all over Lower limbs On formal testing 4/4 all over Coordination: [id number] very slow Target pursuit normal finger tapping normal, Rapid alternating moment of wrist very slow Sensory system: Superficial sensations- Touch normal. Pain- Pinprick, Temperature all normal, Deep sensation normal, Joint position sense normal. Cortical sensation, Tactile discrimination, localization and extinction all normal. Deep tendon reflexes. Symmetrical bilateral, No evidence of Babinski. No sign of meningeal irritation Gait Examination: Deferred - Constitutional General appearance: comfortable Results - Laboratory Findings CBC and BMP: 02/11/18 06:39 02/11/18 06:39 Abnormal lab findings: Abnormal lab results RBC 4.06 M/mcL (4.19-5.50) L 02/11/18 06:39 Hgb 12.3 g/dL (12.9-16.9) L 02/11/18 06:39 Creatinine 0.62 mg/dL (0.70-1.30) L 02/11/18 06:39 BUN/Creatinine Ratio 29 (6-26) H 02/11/18 06:39 Phosphorus 2.6 mg/dL (2.7-4.5) L 02/11/18 06:39 Serum Total Protein 6.3 g/dL (6.4-8.9) L 02/11/18 06:39 Ur Specific [place] > 1.030 (1.010-1.025) H 02/10/18 20:12 Urine Ketones Trace mg/dL (Negative) H 02/10/18 20:12 Ur Leukocyte Esterase Trace (Negative) H 02/10/18 20:12 Urine Microscopic RBC 5-15 per hpf (0-3) H 02/10/18 20:12 Ur Squamous Epith Cells Moderate per lpf (None-Few) H 02/10/18 20:12 Consult Discharge Plan - Plan Referrals: Star Pierre DO [Primary Care Provider] -
--- NOTE | 2018-02-11 10:32 | Cardiology Consult Note ---
<Magalie Gambino - Last Filed: 02/11/18 10:49> Date of Encounter: 02/11/18 Time of Encounter: 09:00 Assessment and Plan (1) Frequent falls Current Visit: Yes Status: Acute Per cardiology: -Patient reports frequent falls, -Denies lightheadedness correlating with falls. -Reports one syncopal event at time of his subbarrachnoid hemorrage, deneis other syncopal event. -Denies fall that correlate every time with position change. -Neuro note reviewed with suspect parkinsons, starting sinemet. (2) Abnormal ECG Current Visit: Yes Status: Acute Per cardiology: -Sinus arrythmia noted per ECG. -Denies palpitations or fluttering. -Reprots occasional ligthheadedness, not correlating with falls. -One syncopal event with subarrachnoid hemorrhage. -Will check TTE Discussion w patient/family: The assessment and plan as outlined above was discussed with the patient who expressed understanding and agreement. All questions were answered. Thank you for involving us in the care of your patient. Please call with any questions. Discussed and reviewed with . History of Present Illness Consult date: 02/11/18 Requesting physician: Norma Moore Consult reason: abnormal ECG Chief complaint: frequent falls History of present illness: Mr. Gtz is a 87 year old male with a relevant past medical history of HLD, GERD, BPH, Blood clot?, malignant melanoma with resection, frequent falls, subarrachnoid hemorrhage who presented to [facility] with complaints of falls. Patient denies chest pain. Denies shortness of breath. Denies palpitations or fluttering. Patient reports his falls occur with position change and while already walking. Patient states he had one syncopal event with his subarrachnoid hemorrhage, however denies other syncopal events. Patient states he just feels weak and his leg "gives out." Reports occasional ligthheadedness, however cannot correlate lightheadedness with his falls. Past Med Surg Social Fam HX - Past Medical History Attestation: Yes The following information was validated with the patient. Source: patient, old records reviewed Medical history: cancer, GERD, hyperlipidemia, venous stasis, other Additional medical history: skin cancer Psychiatric history: no psych history - Past Surgical History Surgical History: cataract, cholecystectomy, herniorrhaphy, vascular surgery Additional surgical history: Vein ablasions - Social History Smoking Status: Never smoker Smokeless Tobacco Status: No Alcohol use: none Drug use: none - Family History Father Hx Family Neuromuscular Disorders: Yes Mother Living Status: Hx Family Neuromuscular Disorders: Yes (subarachnoid hemorrhage in 40's) Sister Hx Family Cancer: Yes Medications and Allergies RX: C,E,Zinc,Copper 11/Mheff1v/Lut [Eye Health Adult 50 Plus Sftgl] 1 cap PO BID 12/11/16 [History] RX: Furosemide [Lasix] 20 mg PO Q48H 12/11/16 [History] RX: Garlic 500 mg PO DAILY 12/11/16 [History] RX: Multivit-Min/FA/Lycopen/Lutein [Adults 50+ Multivitamin Tablet] 1 tab PO DAILY 12/11/16 [History] RX: Omeprazole [PriLOSEC] 20 mg PO DAILY 12/11/16 [History] RX: Aspirin Enteric Coated [Aspirin EC] 81 mg PO DAILY 03/22/17 [History] RX: Tamsulosin [Flomax] 0.4 mg PO DAILY 03/22/17 [History] FLUoxetine HCl [Fluoxetine HCl] 40 mg PO DAILY 02/10/18 [History] Ferrous Sulfate [Iron] 325 mg PO DAILY 02/10/18 [History] Sennosides [Natural Laxative] 8.6 mg PO 3XW 02/10/18 [History] Triamcinolone Acet 0.1% CRM [Kenalog] 1 appl TP AD PRN 02/10/18 [History] Allergy/AdvReac Type Severity Reaction Status Date / Time No Known Allergies Allergy Verified 02/10/18 11:35 All Systems Review: The remainder of the systems were reviewed and are negative - Constitutional Constitutional: frequent falls - Cardiovascular Cardiovascular: as per HPI Physical Examination Vital Signs, Last 4 Hours Temp Pulse Resp BP Pulse Ox 02/11/18 07:56 97.5 F L 91 13 125/57 91 General: Conversant, No Apparent Distress HEENT: Atraumatic, Normocephaly, Mucus Membranes Moist Neck: No JVD, Normal carotid pulses Cardiac: Reg Rate and Rhythm, Normal S1 and S2, No Murmur Lungs: Normal Breath Sounds, No Wheeze, Rales, Rhonchi Neuro: Alert and responsive, No focal deficits noted Abdomen: Soft, Non-Tender Skin: No rashes noted on visualized skin Musculoskeletal: No Chest Wall Tenderness Extremities: No Clubbing, No Cyanosis, No Edema, Normal Pulses Results 02/11/18 06:39 02/11/18 06:39 Lab Results Impressions Head CT 02/10/18 09:26 IMPRESSION: No acute intracranial abnormality. D/ / 02/10/2018 11:58:26 Trey Posey MD / ck Interpreting Provider: Trey Posey MD Active Medications Acetaminophen (Tylenol) 650 mg PO Q6HR PRN PRN Reason: Mild Pain/Fever Stop: 08/12/18 14:07 Aspirin (Aspirin Ec) 81 mg PO DAILY [facility] Stop: 08/13/18 09:01 Last Admin: 02/11/18 09:27 Dose: 81 mg Carbidopa/Levodopa (Sinemet) 1 each PO TID [facility] Stop: 08/13/18 10:31 Ferrous Sulfate (Ferrous Sulfate) 325 mg PO DAILY [facility] Stop: 08/13/18 09:01 Last Admin: 02/11/18 09:27 Dose: 325 mg Fluoxetine HCl (Prozac) 40 mg PO DAILY [facility] Stop: 08/13/18 09:01 Last Admin: 02/11/18 09:27 Dose: 40 mg Furosemide (Lasix) 20 mg PO Q48H [facility] Stop: 08/13/18 09:01 Last Admin: 02/11/18 09:27 Dose: 20 mg Multivitamins/Calcium (Thera M Plus) 1 tab PO BID [facility] Stop: 08/13/18 09:01 Multivitamins/Calcium (Thera M Plus) 1 tab PO DAILY [facility] Stop: 08/13/18 09:01 Last Admin: 02/11/18 09:27 Dose: 1 tab Naloxone HCl (Narcan) 0.4 mg IVP Q2MIN PRN PRN Reason: SEE COMMENTS Stop: 08/12/18 14:07 Garlic 500mg 1 mg PO DAILY [facility] Stop: 08/13/18 09:01 Last Admin: 02/11/18 09:28 Dose: Not Given Omeprazole (Prilosec) 20 mg PO 0630 [facility]; Protocol Stop: 08/13/18 06:31 Last Admin: 02/11/18 06:40 Dose: 20 mg Senna (Senna) 8.6 mg PO 3XW [facility] Stop: 08/13/18 09:01 Last Admin: 02/11/18 09:27 Dose: 8.6 mg Tamsulosin HCl (Flomax) 0.4 mg PO HS [facility]; Protocol Stop: 08/13/18 21:01 Triamcinolone Acetonide (Kenalog) 1 appl TP AD PRN PRN Reason: Skin Irritation Stop: 08/13/18 06:05 Laboratory Tests 02/10/18 02/11/18 02/11/18 10:08 06:39 06:39 Hgb 12.3 L Creatinine 0.62 L Troponin I < 0.03 - Imaging and Cardiology Chest Xray: report reviewed Echo: pending - EKG Interpretation EKG results cardiology: personally reviewed (ECG with sinus arrythmia, HR 83.), other (Not on telemetry.) Consult Discharge Plan - Plan Referrals: Star Pierre DO [Primary Care Provider] - <Lois Tarango - Last Filed: 02/11/18 14:35> - Attending Attestation I have personally performed a face to face evaluation on this patient. I have reviewed and agree with the care plan. History and Exam by me shows: 87-year-old male with multiple comorbidities presents after a fall and known history for previous falls and subarachnoid hemorrhage. EKG shows sinus arrhythmia with some PVCs. Sinus arrhythmia likely is not a culprit for his episodes. Patient has generalized weakness and feels his legs are weak. He denies any palpitations or fluttering in his chest. He also denies any chest pain, orthopnea or PND. Likely sinus arrhythmia not a culprit for his falls and is likely multifactorial and noncardiac. Assessment and Plan Discussion w patient/family: The assessment and plan as outlined above was discussed with the patient and/or family members who expressed understanding and agreement. All questions were answered. Thank you for involving us in the care of your patient. Please call with any questions. History of Present Illness History of present illness: Mr. Gtz is a 87 year old male All Systems Review: The remainder of the systems were reviewed and are negative Physical Examination Vital Signs, Last 4 Hours Temp Pulse Resp BP Pulse Ox 02/11/18 14:10 97.5 F L 69 15 101/55 98 Results 02/11/18 06:39 02/11/18 06:39 Lab Results 02/10/18 02/11/18 02/11/18 10:08 06:39 06:39 WBC 6.0 Hgb 12.3 L Hct 37.7 Plt Count 188 Sodium 138 Potassium 4.3 Chloride 104 Carbon Dioxide 29 BUN 18 Creatinine 0.62 L Glucose 100 Calcium 8.7 Magnesium 2.0 Total Bilirubin 0.9 AST 19 ALT 14 Alkaline Phosphatase 71 Troponin I < 0.03 TSH 02/11/18 10:40 WBC Hgb Hct Plt Count Sodium Potassium Chloride Carbon Dioxide BUN Creatinine Glucose Calcium Magnesium Total Bilirubin AST ALT Alkaline Phosphatase Troponin I TSH 2.031
[2018-02-11 12:04] LABS: Vitamin B12 620 pg/mL (250-1100)
[2018-02-11 12:08] LABS: Folate > 22.3 ng/mL (3.0-16.0)
[2018-02-11] MEDS: Carbidopa/Levodopa 25/100 TABLET PO SCH ×3 (16:58→22:01)
[2018-02-12] MEDS: FLUoxetine 20 MG CAPSULE PO SCH (08:50)
[2018-02-12] MEDS: Carbidopa/Levodopa 25/100 TABLET PO SCH ×3 (08:51→21:34)
[2018-02-12] MEDS: Multivit/Ca/Min/Fe/FA 1 TAB TABLET PO SCH ×3 (08:51→21:34)
[2018-02-12] MEDS: Aspirin Enteric Coated 81 MG Tablet PO SCH (08:51)
[2018-02-12] MEDS: GARLIC 500 MG PO SCH (08:51)
--- NOTE | 2018-02-12 09:49 | Internal Med Progress Note ---
Addendum entered and electronically signed by ROSIE Bains 02/15/18 15:02: Original Note: <Sophia Jean Catia - Last Filed: 02/12/18 13:30> Hospitalist Progress Note - Encounter Date of Encounter: 02/12/18 Time of Encounter: 09:32 - Subjective Interval History: Mr. Gtz is an 87 yo M who appeared at the ED on 02/10 after falling and hitting his head and R hip. It is not known if he lost consciousness. He has a history of falls, one of which happened in May and resulted in a subarachnoid hemorrhage. His friend stated that Mr. Gtz has had L upper extremity weakness for the past 2-3 weeks and seems to lean more to the right. Patient stated that he has been falling more in the past few months and that he feels weak and dizzy when he falls. Patient received head CT which showed no acute intracranial abnormalities, but did show a L posterior soft tissue injury of the scalp. He also received an x-ray of the pelvis which showed no fracture or other osseous abnormality. There was a neuro consult on 02/11. They found him to have features of parkonsonism. They found Mr. Gtz to be oriented x3, CN II-XII to be intact. They noted increasing tone all over the patient's body, more on the left. They also noted mild tremors which were action related and significant cogwheeling. He had difficulty lifting his arms above his head. Finger to nose was very slow, as was rapid alternating movement of the wrists. He had a cardiology consult on 02/11. Their EKG intrepretation stated "ECG with sinus arrhythmia, HR 83." Upon exam of patient today, he appeared to be somewhat confused. He was originally not oriented to place when I entered the room. He was able to tell me his 's name (which I confirmed). When his nurse came into the room a few minutes later, he was oriented to person and place and could correctly state his birthdate. However, he could not recall the current year and said that the president was "a black lou." His nurse reported to me that according the patient's nurse from the previous night, Mr. Gtz was originally oriented and became more confused as the evening went on. Folate levels were elevated at >22.3 on 02/11. ROS: General - denies fever, chills, pain. States that he feels pretty good. Head - Stated that he has a "fluid" and "squarshing" noise in his head. He said that it has been going on for about a year and that it got worse recently. He denies headache, dizziness, fainting. Eyes - Stated that he "sees two people" when he looks to the left. He said that this has been going on for a long time, but has recently gotten worse. Affirmed that he had blurred vision, but then said something that wasn't relevant. CV - denies chest pain Resp - denies dyspnea, cough, wheeze Abd - denies nausea, vomitting, diarrhea, abdominal pain Extremities - hip pain upon lying down but relieved when standing or sitting Neuro - denies numbness, tingling - Exam Vitals: Temp Pulse Resp BP Pulse Ox 98.0 F 79 15 106/63 92 02/12/18 06:58 02/12/18 06:58 02/12/18 06:58 02/12/18 06:58 02/12/18 06:58 Exam: General: Alert. Not oriented to year. Oriented to person. In no acute distress. Head: atraumatic, normocephalic. Could not find any lesions from fall. Eyes: Pupils equal and round. Sclera white. EOMI. CV: auscultated but unable to determine rhythm and heart sounds. Resp: CTA bilaterally. No wheezes, rhonchi, or rales. No respiratory distress Abd: normal BS x4. Non-tender. No guarding. Neuro: resting tremor of L 2nd finger. Skin: good skin turgor. Dry, no open wounds. - Assessment and Plan (1) Frequent falls Current Visit: Yes Status: Acute Assessment and Plan: Continue to follow with neurology. Have assistance with transfers and ambulation. (2) Sinus arrhythmia Current Visit: Yes Status: Acute Assessment and Plan: Follow with cardiology as recommended. (3) Physical deconditioning Current Visit: No Status: Acute Assessment and Plan: At increased fall risk. PT has evaluated him and will be treating him. (4) Essential tremor Current Visit: No Status: Chronic Assessment and Plan: Continue home medications. - Time Spent with Patient Total time spent is greater than 50% in coordination of care (as documented) at patient's floor/unit and/or counseling patient: less than 15 minutes Internal Medicine: Result - Labs CBC & Chem 7: 02/11/18 06:39 02/11/18 06:39 Consult Discharge Plan - Plan Referrals: Star Pierre DO [Primary Care Provider] - <Kyle Alexander - Last Filed: 02/12/18 15:52> Hospitalist Progress Note - Exam Vitals: Temp Pulse Resp BP Pulse Ox 98.5 F 95 15 112/65 92 02/12/18 14:46 02/12/18 14:46 02/12/18 06:58 02/12/18 14:45 02/12/18 06:58 - Assessment and Plan (1) Parkinsonism Current Visit: Yes Status: Chronic (2) Frequent falls Current Visit: Yes Status: Acute (3) Fall Current Visit: Yes Status: Acute (4) GERD (gastroesophageal reflux disease) Current Visit: No Status: Chronic - Time Spent with Patient Total time spent is greater than 50% in coordination of care (as documented) at patient's floor/unit and/or counseling patient: Internal Medicine: Result - Labs CBC & Chem 7: 02/11/18 06:39 02/11/18 06:39 - Impressions Impressions Echocardiogram 02/11/18 10:30 Impressions: LVEF 55%. Mild left ventricular diastolic dysfunction. Normal right ventricular structure and function. Mild mitral regurgitation. Mild tricuspid regurgitation. - Attending Attestation The history, physical exam, and medical decision making was performed by the medical student either while I was physically present and actively involved or I personally re-performed the exam and medical decision making. I have verified the accuracy of the medical student's documentation with regards to the history, physical exam findings, and medical decision making on 02/12/18. Mr Gtz is currently in observation for falls. He has been evaluated by neuro and started on Sinemet for Parkinsonism. He remains moderate to high risk. Mr Gtz is resting at this time. No fever or chills. No CP or SOB. Still confused. Still with tremor. No GI issues. Exam alert Comfortable Mucus membranes dry Heart distant and not tachy No wheeze Abd soft I/P 1. Fall 2. Parkinsonism Further diagnoses and plan as above. Trying to place in SNF. <Kyle Alexander - Last Filed: 02/12/18 15:52> (1) Parkinsonism Qualifiers: Parkinsonism type: unspecified Qualified Code(s): G20 - Parkinson's disease (3) Fall Qualifiers: Encounter type: subsequent encounter Qualified Code(s): W19.XXXD - Unspecified fall, subsequent encounter (4) GERD (gastroesophageal reflux disease) Qualifiers: Esophagitis presence: esophagitis presence not specified Qualified Code(s): K21.9 - Gastro-esophageal reflux disease without esophagitis
--- NOTE | 2018-02-12 11:24 | Neurology Progress Note ---
<Easton Calhoun - Last Filed: 02/12/18 16:18> Date of Encounter: 02/12/18 Time of Encounter: 13:14 Assessment and Plan (1) Frequent falls Current Visit: Yes Status: Acute She was trialed on Sinemet starting yesterday. He continues to have significant stiffness today. He also has cogwheeling rigidity all extremities. Patient is also confused today. He is alert to and oriented to self but not to place, time or situation. Due to his confusion we will not advance sinment dosing. will reevaluate in 24 hours. Subjective Principal diagnosis: Frequent falls Interval history: Patient denies any acute overnight events. This morning he was sitting up in bed, confused using the TV controls as a phone. Objective - Constitutional Vitals: Temp Pulse Resp BP Pulse Ox 98.0 F 79 15 106/63 92 02/12/18 06:58 02/12/18 06:58 02/12/18 06:58 02/12/18 06:58 02/12/18 06:58 - Other Additional findings: General: pleasant, without distress HEENT: Head atraumatic, normocephalic, EOMI, PERRL, absent ear discharge or trauma, Moist Mucous Membranes, uvula midline Neck: nontender to palpation, absent lymphadenopathy, Cardiovascualr: Regular rate and rhythm with no murmur, absent gallops or rubs, absent pedal edema, radial pulses 2 out of 4 Lungs: Clear to auscultation bilaterally, not in respiratory distress Abdomen: Soft nontender, nondistended positive bowel sounds, absent hepatomegaly Skin: warm and dry, absent rash, absent open wounds and nodules MSK: absent clubbing, cyanosis, joints without swelling Neuro: Patient continues to have clogweel rigidity in all 4 extremities. He is alert to self only but not to place, time, situation. Psych: good insight and judgment, anxious, depressed Results - Laboratory Findings CBC and BMP: 02/11/18 06:39 02/11/18 06:39 Abnormal lab findings: Abnormal lab results RBC 4.06 M/mcL (4.19-5.50) L 02/11/18 06:39 Hgb 12.3 g/dL (12.9-16.9) L 02/11/18 06:39 Creatinine 0.62 mg/dL (0.70-1.30) L 02/11/18 06:39 BUN/Creatinine Ratio 29 (6-26) H 02/11/18 06:39 Phosphorus 2.6 mg/dL (2.7-4.5) L 02/11/18 06:39 Serum Total Protein 6.3 g/dL (6.4-8.9) L 02/11/18 06:39 Folate > 22.3 ng/mL (3.0-16.0) H 02/11/18 10:40 Ur Specific [place] > 1.030 (1.010-1.025) H 02/10/18 20:12 Urine Ketones Trace mg/dL (Negative) H 02/10/18 20:12 Ur Leukocyte Esterase Trace (Negative) H 02/10/18 20:12 Urine Microscopic RBC 5-15 per hpf (0-3) H 02/10/18 20:12 Ur Squamous Epith Cells Moderate per lpf (None-Few) H 02/10/18 20:12 Consult Discharge Plan - Plan Referrals: Star Pierre DO [Primary Care Provider] - <Jessica Manjarrez I - Last Filed: 02/12/18 16:29> Assessment and Plan (1) Frequent falls Current Visit: Yes Status: Acute (2) History of subarachnoid hemorrhage Current Visit: Yes Status: Acute (3) Weakness Current Visit: Yes Status: Acute (4) Parkinson disease Current Visit: Yes Status: Acute Pt was seen and examined, my medical decision was reviewed with the Resident Physician, I agree with the documented findings, disposition and treatment plas as described except to the extent set forth below. Patient remained very stiff and also has some underlying confusion perhaps it could be Started on low-dose of Sinemet yesterday it may take a while for the medication to start seeing any effect but am afraid that if he increases it quickly his confusion may get worse or he may start hallucinating Otherwise he is a stable suggest to continue on the current dose and gradually increase after few days Jessica Manjarrez MD Objective - Constitutional Vitals: Temp Pulse Resp BP Pulse Ox 98.5 F 95 15 112/65 92 02/12/18 14:46 02/12/18 14:46 02/12/18 06:58 02/12/18 14:45 02/12/18 06:58 Results - Laboratory Findings CBC and BMP: 02/11/18 06:39 02/11/18 06:39 Abnormal lab findings: Abnormal lab results RBC 4.06 M/mcL (4.19-5.50) L 02/11/18 06:39 Hgb 12.3 g/dL (12.9-16.9) L 02/11/18 06:39 Creatinine 0.62 mg/dL (0.70-1.30) L 02/11/18 06:39 BUN/Creatinine Ratio 29 (6-26) H 02/11/18 06:39 Phosphorus 2.6 mg/dL (2.7-4.5) L 02/11/18 06:39 Serum Total Protein 6.3 g/dL (6.4-8.9) L 02/11/18 06:39 Folate > 22.3 ng/mL (3.0-16.0) H 02/11/18 10:40 Ur Specific [place] > 1.030 (1.010-1.025) H 02/10/18 20:12 Urine Ketones Trace mg/dL (Negative) H 02/10/18 20:12 Ur Leukocyte Esterase Trace (Negative) H 02/10/18 20:12 Urine Microscopic RBC 5-15 per hpf (0-3) H 02/10/18 20:12 Ur Squamous Epith Cells Moderate per lpf (None-Few) H 02/10/18 20:12
--- NOTE | 2018-02-12 11:25 | Event Note ---
Date of Encounter: 02/12/18 Time of Encounter: 10:27 - Cardiology Event Note Cardiology consulted for sinus arrythmia, frequent falls. Do not suspect falls related to sinus arrythmia. TTE with LVEF preserved, no segmental wall motion abnormalities noted. Cardiology will sign off.
[2018-02-13 04:13] LABS: BUN/Creatinine Ratio 31 (6-26); Blood Urea Nitrogen 20 mg/dL (8-23); Calcium 8.9 mg/dL (8.6-10.3); Carbon Dioxide 30 mEq/L (23-29); Chloride 103 mEq/L (98-107); Glucose 113 mg/dL (70-105); Osmolality,Calculated 289 (280-300); Phosphorous 2.7 mg/dL (2.7-4.5); Potassium 4.2 mEq/L (3.5-5.1); Sodium 138 mEq/L (136-145); eGFR For Non-African Americans > 60 (> 60)
[2018-02-13] MEDS: Sennosides 8.6 MG TABLET PO SCH (09:25)
[2018-02-13] MEDS: Multivit/Ca/Min/Fe/FA 1 TAB TABLET PO SCH ×2 (09:25→09:28)
[2018-02-13] MEDS: Furosemide 20 MG TABLET PO SCH (09:25)
[2018-02-13] MEDS: Aspirin Enteric Coated 81 MG Tablet PO SCH (09:26)
[2018-02-13] MEDS: Carbidopa/Levodopa 25/100 TABLET PO SCH ×3 (09:26→19:59)
[2018-02-13] MEDS: FLUoxetine 20 MG CAPSULE PO SCH (09:26)
[2018-02-13] MEDS: GARLIC 500 MG PO SCH (09:27)
--- NOTE | 2018-02-13 10:14 | Internal Med Progress Note ---
Addendum entered and electronically signed by ROSIE Bains 02/15/18 15:00: Original Note: <Sophia Jean M - Last Filed: 02/13/18 10:53> Hospitalist Progress Note - Encounter Date of Encounter: 02/13/18 Time of Encounter: 09:30 - Subjective Interval History: Mr. Gtz is an 87 yo M who appeared at the ED on 02/10 after falling and hitting his head and R hip. It is not known if he lost consciousness. He has a history of falls, one of which happened in May and resulted in a subarachnoid hemorrhage. His friend stated that Mr. Gtz has had L upper extremity weakness for the past 2-3 weeks and seems to lean more to the right. Patient stated that he has been falling more in the past few months and that he feels weak and dizzy when he falls. Patient received head CT which showed no acute intracranial abnormalities, but did show a L posterior soft tissue injury of the scalp. He also received an x-ray of the pelvis which showed no fracture or other osseous abnormality. There was a neuro consult on 02/11. They found him to have features of parkonsonism. They found Mr. Gtz to be oriented x3, CN II-XII to be intact. They noted increasing tone all over the patient's body, more on the left. They also noted mild tremors which were action related and significant cogwheeling. Neuro started him on a trial of Sinemet with plans to gradually increase. He had a cardiology consult on 02/11. Their EKG intrepretation stated "ECG with sinus arrhythmia, HR 83." They do not suspect falls to be related to sinus arrhythmia. Upon exam of patient yesterday (02/12), he appeared to be somewhat confused. He was not oriented to place, year, or the current president. He was able to tell me his 's name (which I confirmed). He was oriented to person and could correctly state his birthdate. According to his nurse, during the night before, Mr. Gtz was originally oriented and became more confused as the evening went on. Today, his nurse reported to me that last night he was very confused, but today he was oriented to person, place, city, president, and was off by a couple of days for orientation to time. I talked with patient's daughter who stated that he has seemed more confused since he has started the Sinemet. Folate levels were elevated at >22.3 on 02/11. Today, BP is elevated at 160/72. Up to this point in his stay, systolic BP has run in the 130s. Plan to start on metoprolol 12.5 PRN. PMHx: subarachnoid hemorrhage, GERD, hyperlipidemia ROS: - patient was asleep, answers from daughter Head - No headache, dizziness, fainting to her knowledge. CV - No knowledge of chest pain Abd - No knowledge of nausea, vomitting, diarrhea, abdominal pain. States that she thinks he might have had a BM accident yesterday. Extremities - states that he complains of hip pain a lot - Exam Vitals: Temp Pulse Resp BP Pulse Ox 98.5 F 97 16 160/72 94 02/13/18 03:39 02/13/18 07:50 02/13/18 07:50 02/13/18 07:50 02/13/18 07:50 Exam: General: Alert. In no acute distress. Head: atraumatic, normocephalic. Could not find any lesions from fall. Eyes: Pupils equal and round. Sclera white. EOMI. CV: rhythm was irregular Resp: CTA bilaterally. No wheezes, rhonchi, or rales. No respiratory distress. Abd: normal BS x4. Non-tender. No guarding. Skin: good skin turgor. Dry, no open wounds. Extremities: cogwheeling. no clubbing or swelling - Assessment and Plan (1) Frequent falls Current Visit: Yes Status: Acute Assessment and Plan: Continue to follow with neurology. Have assistance with transfers and ambulation. Has met with psychotherapist social worker to make arrangements for move to [facility]. (2) Parkinson disease Current Visit: Yes Status: Acute Assessment and Plan: Neurology started patient on a trial of Sinemet. Plan to gradually increase dosage. (3) Sinus arrhythmia Current Visit: Yes Status: Acute (4) Physical deconditioning Current Visit: No Status: Acute Assessment and Plan: At increased fall risk. PT has evaluated him and will be treating him. (5) Essential tremor Current Visit: No Status: Chronic Assessment and Plan: Continue home medications. - Time Spent with Patient Total time spent is greater than 50% in coordination of care (as documented) at patient's floor/unit and/or counseling patient: less than 15 minutes Internal Medicine: Result - Labs CBC & Chem 7: 02/11/18 06:39 02/13/18 03:13 Labs: BMP 02/13/18 03:13 Sodium 138 Potassium 4.2 Chloride 103 Carbon Dioxide 30 H BUN 20 Creatinine 0.65 L Glucose 113 H Calcium 8.9 - Impressions Impressions Echocardiogram 02/11/18 10:30 Impressions: LVEF 55%. Mild left ventricular diastolic dysfunction. Normal right ventricular structure and function. Mild mitral regurgitation. Mild tricuspid regurgitation. Consult Discharge Plan - Plan Referrals: Star Pierre DO [Primary Care Provider] - <Kyle Alexander - Last Filed: 02/13/18 18:03> Hospitalist Progress Note - Exam Vitals: Temp Pulse Resp BP Pulse Ox 98.5 F 97 16 160/72 94 02/13/18 03:39 02/13/18 07:50 02/13/18 07:50 02/13/18 07:50 02/13/18 07:50 - Assessment and Plan (1) Parkinson disease Current Visit: Yes Status: Acute (2) Frequent falls Current Visit: Yes Status: Acute (3) Physical deconditioning Current Visit: No Status: Acute (4) GERD (gastroesophageal reflux disease) Current Visit: No Status: Chronic - Time Spent with Patient Total time spent is greater than 50% in coordination of care (as documented) at patient's floor/unit and/or counseling patient: Internal Medicine: Result - Labs CBC & Chem 7: 02/11/18 06:39 02/13/18 03:13 Labs: BMP 02/13/18 03:13 Sodium 138 Potassium 4.2 Chloride 103 Carbon Dioxide 30 H BUN 20 Creatinine 0.65 L Glucose 113 H Calcium 8.9 - Attending Attestation I examined this patient and my medical decision-making was reviewed with the Resident Physician on 02/13/18. I agree with the documented findings, disposition and treatment plan as described except to the extent set forth below. Mr Gtz is currently admitted for fall and tremor. He remains moderate to high risk due to potential for worsening clinical status. Mr Gtz has been intermittently confused. Tremor and rigidity seems better today. No fever or chills. No CP or SOB. Exam alert Comfortable at this time Mucus membranes dry Heart reg No wheeze Less rigidity this AM No edema I/P 1. Fall 2. Parkinsonism - on Sinemet Further diagnoses and plan as above. <Kyle Alexander - Last Filed: 02/13/18 18:03> (4) GERD (gastroesophageal reflux disease) Qualifiers: Esophagitis presence: esophagitis presence not specified Qualified Code(s): K21.9 - Gastro-esophageal reflux disease without esophagitis
--- NOTE | 2018-02-13 12:04 | Neurology Progress Note ---
Date of Encounter: 02/13/18 Time of Encounter: 08:20 Assessment and Plan (1) Frequent falls Current Visit: Yes Status: Acute (2) History of subarachnoid hemorrhage Current Visit: Yes Status: Acute (3) Weakness Current Visit: Yes Status: Acute (4) Parkinson disease Current Visit: Yes Status: Acute Patient stiffness seems to have improved now history having some confusion perhaps possible could be related to Sinemet but at the same time high risk for sundowning. As clinically he has shown improvement in his symptoms I would suggest that we should continue on his current dose of Sinemet which is 25/100 half tablet 3 times a day I recommend slowly increasing to 1 tablet in the morning and half in the afternoon and half in the evening for the next 3 days and after that increase to 1 tablet in the morning 1 it known and half at night, after about a week it could be increased to 1 tablet 3 times a day Beside that continue treatment his other underlying metabolic abnormalities He may be able to participate in some physical therapy exercises later on If remained stable could be transferred to the nursing facility with follow-up in neurology in 3-4 weeks Discussed with the daughter was present at the bedside explained all in detail she agrees with the plan Subjective Principal diagnosis: Frequent falls Interval history: Patient noted to be more awake off-and-on confusion stiffness is much improved now his cogwheeling rigidity is more localized to his left arm, His overall is stiffness has been improving but having more confusion in the evening. No other new focal motor symptoms Objective - Constitutional Vitals: Temp Pulse Resp BP Pulse Ox 98.5 F 97 16 160/72 94 02/13/18 03:39 02/13/18 07:50 02/13/18 07:50 02/13/18 07:50 02/13/18 07:50 - Neurological Exam Motor Examination: Present: grossly full strength in all extremities (Patient is alert awake and oriented 1 he is able to follow simple commands able to recognize the family members), other Results - Laboratory Findings CBC and BMP: 02/11/18 06:39 02/13/18 03:13 Abnormal lab findings: Abnormal lab results RBC 4.06 M/mcL (4.19-5.50) L 02/11/18 06:39 Hgb 12.3 g/dL (12.9-16.9) L 02/11/18 06:39 Carbon Dioxide 30 mEq/L (23-29) H 10/24/18 03:13 Creatinine 0.65 mg/dL (0.70-1.30) L 02/13/18 03:13 BUN/Creatinine Ratio 31 (6-26) H 02/13/18 03:13 Glucose 113 mg/dL (70-105) H 02/13/18 03:13 Serum Total Protein 6.3 g/dL (6.4-8.9) L 02/11/18 06:39 Folate > 22.3 ng/mL (3.0-16.0) H 02/11/18 10:40 Ur Specific [place] > 1.030 (1.010-1.025) H 02/10/18 20:12 Urine Ketones Trace mg/dL (Negative) H 02/10/18 20:12 Ur Leukocyte Esterase Trace (Negative) H 02/10/18 20:12 Urine Microscopic RBC 5-15 per hpf (0-3) H 02/10/18 20:12 Ur Squamous Epith Cells Moderate per lpf (None-Few) H 02/10/18 20:12 Consult Discharge Plan - Plan Referrals: Star Pierre DO [Primary Care Provider] -
[2018-02-13] MEDS ORDERED: diazePAM 10 MG/2 ML SYRINGE IVP ONE (23:04)
--- NOTE | 2018-02-14 07:57 | Electrocardiograph Report ---
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
[2018-02-14] MEDS ORDERED: Carbidopa/Levodopa 25/100 TABLET PO SCH (09:00)
[2018-02-14 10:25] VITALS: BP 100/56
[2018-02-14] MEDS: Aspirin Enteric Coated 81 MG Tablet PO SCH (10:35)
[2018-02-14] MEDS: FLUoxetine 20 MG CAPSULE PO SCH (10:36)
[2018-02-14] MEDS: Multivit/Ca/Min/Fe/FA 1 TAB TABLET PO SCH (10:36)
--- NOTE | 2018-02-14 10:53 | Discharge Summary ---
<Sophia Jean - Last Filed: 02/14/18 10:05> Date of Encounter: 02/14/18 Time of Encounter: 09:00 - Discharge Diagnosis (1) Frequent falls Status: Acute Assessment and Plan: Follow up with neurology in 3-4 weeks. Have assistance with transfers and ambulation. (2) Parkinson disease Status: Acute Assessment and Plan: Neurology started patient on Sinemet and plans to gradually increase dosage. (3) Sinus arrhythmia Status: Acute (4) Physical deconditioning Status: Acute Assessment and Plan: PT when able to participate. (5) Essential tremor Status: Chronic Assessment and Plan: Continue home medications. Hospital course: Mr. Gtz is a 87 year old male who appeared at the ED on 02/10 after falling and hitting his head and R hip. He has a history of falls, one of which happened in May and resulted in a subarachnoid hemorrhage. His friend stated that Mr. Gtz has had L upper extremity weakness for the past 2-3 weeks and seems to lean more to the right. Patient stated that he has been falling more in the past few months and that he feels weak and dizzy when he falls. Patient received head CT which showed no acute intracranial abnormalities. X- ray of the pelvis showed no fracture or other osseous abnormality. Neuro found patient to have features of parkonsonism. He has had full body rigidity, more on the left. They also noted mild tremors which were action related and significant cogwheeling. Neuro started him on a trial of Sinemet with plans to gradually increase. Cardiology found him to have sinus arrhythmia, but do not suspect falls to be related to sinus arrhythmia. Since starting Sinemet, patient has had varying levels of confusion which is thought to be related to starting Sinemet. Will increase Sinemet slowly. Was started on metoprolol 12.5 PRN due to increase of BP to 160/72. - Time Spent with Patient Total time spent providing and/or coordinating discharge services: - Discharge Medications Home Medications: RX: C,E,Zinc,Copper 11/Bvika7b/Lut [Eye Health Adult 50 Plus Sftgl] 1 cap PO BID 12/11/16 [History] RX: Furosemide [Lasix] 20 mg PO Q48H 12/11/16 [History] RX: Multivit-Min/FA/Lycopen/Lutein [Adults 50+ Multivitamin Tablet] 1 tab PO DAILY 12/11/16 [History] RX: Omeprazole [PriLOSEC] 20 mg PO DAILY 12/11/16 [History] RX: Aspirin Enteric Coated [Aspirin EC] 81 mg PO DAILY 03/22/17 [History] RX: Tamsulosin [Flomax] 0.4 mg PO DAILY 03/22/17 [History] RX: FLUoxetine HCl [Fluoxetine HCl] 40 mg PO DAILY 02/10/18 [History] RX: Sennosides [Natural Laxative] 8.6 mg PO 3XW 02/10/18 [History] RX: Triamcinolone Acet 0.1% CRM [Kenalog] 1 appl TP AD PRN 02/10/18 [History] RX: Carbidopa/Levodopa 25/100 [Sinemet /] 0.5 each PO TID tablet 02/14/18 [Rx] RX: Metoprolol [Lopressor] 12.5 mg PO DAILY tablet 02/14/18 [Rx] Allergies/Adverse Reactions: Allergy/AdvReac Type Severity Reaction Status Date / Time No Known Allergies Allergy Verified 02/10/18 11:35 Date of admission: 02/12/18 18:49 Primary care physician: Star Pierre DO Consults: 02/10/18 12:43 Consult to Food Technician [CONS] Routine Reason for SW Consult: possible ecf placement vs home health 02/10/18 14:10 Consult to Physical Therapy [CONS] Routine Comment: Evaluate, develop and implement POC Reason for Consult: weekness, frequent falls Does patient have active BEDREST order?: Yes Is patient medically & hemodynamically stable?: Yes Patient assessed for mobility or mobilized this visit?: No 02/11/18 05:55 Consult to Cardiology [CONS] Routine Comment: Consulting Provider: Cardiology [facility] Reason for Consult: sinus arrhythmia on EKG. Call Completed: No Consult to Neurology [CONS] Routine Consulting Provider: Neurology [facility] Reason for Consult: Frequent falls Time Notified: 05:55 Call Completed: No 02/11/18 10:09 Consult to Food Technician [CONS] Routine Reason for SW Consult: potential need for ECF or home health at discharge - Constitutional Vitals: Temp Pulse Resp BP Pulse Ox 98.5 F 96 15 144/79 93 02/14/18 07:09 02/14/18 07:09 02/14/18 07:09 10/25/18 07:09 02/14/18 07:09 General appearance: Present: no acute distress Exam: General: Alert. In no acute distress. Head: atraumatic, normocephalic. Could not find any lesions from fall. Eyes: Pupils equal and round. Sclera white. EOMI. CV: RRR Resp: Small wheeze in L upper lung. No rhonchi, or rales. No respiratory distress. Abd: normal BS x4. Non-tender. No guarding. Skin: good skin turgor. Dry, no open wounds. Extremities: cogwheeling. no clubbing or swelling - Patient Status Disposition: Transfer SNF Condition: Fair Functional capacity at discharge: uses cane/walker Overall status at discharge: patient is progressing back to baseline - Discharge Instructions Instructions: Carbidopa/Levodopa (By mouth), Parkinson's Disease (DC), Influenza Vaccine (GEN) Follow Up With: Jessica Manjarrez MD [Partnered Physician] - 02/19/18 10:45 am Star Pierre DO [Primary Care Provider] - - Diet and Activity Activity: ambulate only with your walker, as per physical therapy, increase activity as tolerated Diet: advance to your usual diet <Enrique Carmichael - Last Filed: 02/14/18 13:58> - NOTES TO OUTPATIENT PROVIDER Notes to Outpatient Provider: Continue on his current dose of Sinemet which is 25/100 half tablet 3 times a day. Neurology recommend slowly increasing to 1 tablet in the morning and half in the afternoon and half in the evening for the next 3 days and after that increase to 1 tablet in the morning 1 it known and half at night, after about a week it could be increased to 1 tablet 3 times a day. He may be able to participate in some physical therapy exercises later on. Patient transferred to the nursing facility and will need neurology follow-up in 3-4 weeks. - Discharge Diagnosis (1) Essential tremor Priority: Secondary Status: Chronic (2) Frequent falls Priority: Secondary Status: Chronic (3) Physical deconditioning Priority: Secondary Status: Chronic (4) GERD (gastroesophageal reflux disease) Priority: Secondary Status: Chronic Qualifiers: Esophagitis presence: esophagitis presence not specified Qualified Code(s): K21.9 - Gastro-esophageal reflux disease without esophagitis (5) Sinus arrhythmia Priority: Secondary Status: Chronic (6) Parkinson disease Priority: Primary Status: Chronic Hospital course: Patient was found to have features of parkinsonism and has history of multiple falls. He was evaluated by neurology, who recommended continuing his current dose of Sinemet which is 25/100 half tablet 3 times a day. Then, slowly increase to 1 tablet in the morning and half in the afternoon and half in the evening for the next 3 days and after that increase to 1 tablet in the morning 1 it known and half at night, after about a week it could be increased to 1 tablet 3 times a day. He may be able to participate in some physical therapy exercises. Patient transferred to the nursing facility and will need neurology follow-up in 3-4 weeks. Patient seen and examined with medical student, Sophia Jean. Agree with documented findings including hospital course, assessment, and plan. - Time Spent with Patient Total time spent providing and/or coordinating discharge services: Date of admission: 02/12/18 18:49 Primary care physician: Star Pierre DO Consults: 02/10/18 12:43 Consult to Food Technician [CONS] Routine Reason for SW Consult: possible ecf placement vs home health 02/10/18 14:10 Consult to Physical Therapy [CONS] Routine Comment: Evaluate, develop and implement POC Reason for Consult: weekness, frequent falls Does patient have active BEDREST order?: Yes Is patient medically & hemodynamically stable?: Yes Patient assessed for mobility or mobilized this visit?: No 02/11/18 05:55 Consult to Cardiology [CONS] Routine Comment: Consulting Provider: Cardiology [facility] Reason for Consult: sinus arrhythmia on EKG. Call Completed: No Consult to Neurology [CONS] Routine Consulting Provider: Neurology [facility] Reason for Consult: Frequent falls Time Notified: 05:55 Call Completed: No 02/11/18 10:09 Consult to Food Technician [CONS] Routine Reason for SW Consult: potential need for ECF or home health at discharge Discharging clinician: Kyle Alexander Anticipated date of discharge: 02/14/18 - Constitutional Vitals: Temp Pulse Resp BP Pulse Ox 97.8 F 73 16 100/56 96 02/14/18 10:20 02/14/18 10:20 02/14/18 10:20 02/14/18 10:20 02/14/18 11:10 <Kyle Alexander Chetan - Last Filed: 02/14/18 18:37> - Discharge Diagnosis (1) GERD (gastroesophageal reflux disease) Status: Chronic Qualifiers: Esophagitis presence: esophagitis presence not specified Qualified Code(s): K21.9 - Gastro-esophageal reflux disease without esophagitis (2) Essential tremor Status: Chronic (3) Frequent falls Status: Chronic (4) Physical deconditioning Status: Chronic (5) Sinus arrhythmia Status: Chronic (6) Parkinson disease Status: Chronic Hospital course: Mr. Gtz is a 87 year old male - Time Spent with Patient Total time spent providing and/or coordinating discharge services: 37min Date of admission: 02/12/18 18:49 Primary care physician: Star Pierre DO Consults: 02/10/18 12:43 Consult to Food Technician [CONS] Routine Reason for SW Consult: possible ecf placement vs home health 02/10/18 14:10 Consult to Physical Therapy [CONS] Routine Comment: Evaluate, develop and implement POC Reason for Consult: weekness, frequent falls Does patient have active BEDREST order?: Yes Is patient medically & hemodynamically stable?: Yes Patient assessed for mobility or mobilized this visit?: No 02/11/18 05:55 Consult to Cardiology [CONS] Routine Comment: Consulting Provider: Cardiology [facility] Reason for Consult: sinus arrhythmia on EKG. Call Completed: No Consult to Neurology [CONS] Routine Consulting Provider: [facility] Reason for Consult: Frequent falls Time Notified: 05:55 Call Completed: No 02/11/18 10:09 Consult to Food Technician [CONS] Routine Reason for SW Consult: potential need for ECF or home health at discharge - Constitutional Vitals: Temp Pulse Resp BP Pulse Ox 97.8 F 73 16 100/56 96 02/14/18 10:20 02/14/18 10:20 02/14/18 10:20 02/14/18 10:20 02/14/18 11:10 - Attending Attestation I examined this patient and my medical decision-making was reviewed with the Resident Physician on 02/14/18. I agree with the documented findings, disposition and treatment plan as described except to the extent set forth below. Mr Gtz has been admitted for encephalopathy and falls. He was felt to have parkinsons and started on Sinemet. He has had some hallucinations with Sinemet and will be increased slowly. He is afebrile and ready for d/c to SNF. Exam alert Interactive Mucus membranes dry Heart reg No wheeze Some cogwheel rigidity noted Plan D/C to SNF today. Addendum entered and electronically signed by ROSIE Bains 02/15/18 14:59:
--- NOTE | 2018-02-14 12:59 | Physician Discharge Referral ---
ExtendedCare Referral Info Transfer To: [facility] [place] Provider in Charge after Transfer: PCP Institutional Level of Care: Skilled - Diagnosis (1) Parkinson disease Priority: Primary Status: Chronic (2) Frequent falls Priority: Secondary Status: Chronic (3) Physical deconditioning Priority: Secondary Status: Chronic (4) GERD (gastroesophageal reflux disease) Priority: Secondary Status: Chronic (5) Sinus arrhythmia Priority: Secondary Status: Chronic (6) Essential tremor Priority: Secondary Status: Chronic Expected Duration of Placement: Less than 30 days Prognosis: Fair Aware of Diagnosis: Patient, Family Aware of Prognosis: Patient, Family - Transfer Medications Home Medications: C,E,Zinc,Copper 11/Twcnc5f/Lut [[facility] Health Adult 50 Plus Sftgl] 1 cap PO BID 12/11/16 [History] Furosemide [Lasix] 20 mg PO Q48H 12/11/16 [History] Multivit-Min/FA/Lycopen/Lutein [Adults 50+ Multivitamin Tablet] 1 tab PO DAILY 12/11/16 [History] Omeprazole [PriLOSEC] 20 mg PO DAILY 12/11/16 [History] Aspirin Enteric Coated [Aspirin EC] 81 mg PO DAILY 03/22/17 [History] Tamsulosin [Flomax] 0.4 mg PO DAILY 03/22/17 [History] FLUoxetine HCl [Fluoxetine HCl] 40 mg PO DAILY 02/10/18 [History] Sennosides [Natural Laxative] 8.6 mg PO 3XW 02/10/18 [History] Triamcinolone Acet 0.1% CRM [Kenalog] 1 appl TP AD PRN 02/10/18 [History] Carbidopa/Levodopa 25/100 [Sinemet 25/100] 0.5 each PO TID tablet 02/14/18 [Rx] Metoprolol [Lopressor] 12.5 mg PO DAILY tablet 02/14/18 [Rx] Allergies/Adverse Reactions: Allergy/AdvReac Type Severity Reaction Status Date / Time No Known Allergies Allergy Verified 02/10/18 11:35 - Respiratory Orders Oxygen / L per min (Keep oxygen sat greater than 90%) Smoking Cessation: Smoking cessation has been advised. For more information, call the [place] Tobacco Quit Line at 9-572-IRFV-NOW. - Lab Orders Lab Orders: 2 Step Mantoux Test per State regulation, CBC, Saurabh 17 - Ancillary Orders May use pressure relief devices daily prn, May consult with Dentist, Litigation Examiner, Merchandise Processor PRN - Advance Directives Code Status: DNR-Arrest/Don't Intubate - Mobility Orders Chair, Ambulate - Rehabiliation Orders Rehab Potential: Fair Rehab Orders: Evaluation for Physical Therapy, Evaluation for Occupational Therapy, Evaluation for Speech Therapy - Diet Orders Regular CERTIFICATION: I certify that the transfer of the above named patient to an Extended Care Facility is necessary for the continuing treatment of the diagnosis listed. The above information is true and accurate reflection of patient's current condition. Confidential - Redisclosure prohibited without a patient's written consent.
== END 2018-02-14 15:29 | DRG 57 ==
LOC: 3ANU 09:00 → EMEROOARM 09:00 → SUATTDRO 11:23 → 3ANU 12:13
PROVIDERS: ADMIT Internal Medicine Nephrology; ATTEND Internal Medicine

== ENCOUNTER 2019-01-06 | Inpatient (IN) ==
[2019-01-06 00:33] LABS: Basophils % 0.3 %; Eosinophils # 0.1 K/mcL (0.0-0.6); Eosinophils % 1.5 %; Hematocrit 37.9 % (37.5-50.1); Hemoglobin 12.1 g/dL (12.9-16.9); Immature Granulocytes % 0.3 % (0-4); Lymphocytes # 1.1 K/mcL (0.6-4.6); Lymphocytes % 16.2 %; Mean Corpuscular HGB Conc 31.9 g/dL (31.6-35.5); Mean Corpuscular Hemoglobin 29.9 pg (28.0-33.3); Mean Corpuscular Volume 93.6 fL (83.0-100.0); Mean Platelet Volume 9.6 fL (9.4-12.4); Monocytes # 0.7 K/mcL (0.0-1.3); Neutrophils # 4.9 K/mcL (1.6-8.9); Platelet Count 240 K/mcL (140-400); Red Blood Count 4.05 M/mcL (4.19-5.50); Red Cell Distribution Width 12.7 % (11.5-14.5); Segmented Neutrophils % 71.7 %; White Blood Count 6.8 K/mcL (4.3-11.1)
[2019-01-06 00:35] LABS: Bilirubin,Urine Negative (Negative); Blood,Urine Large (Negative); Clarity,Urine Cloudy (Clear); Color,Urine Dark Yellow (Yellow); Glucose,Urine (UA) Normal (Normal); Ketones,Urine Trace mg/dL (Negative); Leukocyte Esterase,Urine Moderate (Negative); Nitrite,Urine Negative (Negative); Protein,Urine 100 mg/dL (Neg-Trace); Specific Gravity,Urine 1.024 (1.010-1.025); Urobilinogen,Urine Normal (Normal)
[2019-01-06 00:36] LABS: Bacteria,Urine Many per hpf (None-Few); Hyaline Casts,Urine None Seen per lpf (None-Few); RBC,Urine TNTC per hpf (0-3); Squamous Epithelial Cell,Urine None Seen per lpf (None-Few); WBC,Urine 30-50 per hpf (0-3)
[2019-01-06 00:40] LABS: INR 1.2; Prothrombin Time 13.3 Seconds (9.4-12.1)
[2019-01-06 00:43] LABS: Activated Partial Thrombo Time 28.8 Seconds (26.0-36.0)
[2019-01-06 00:58] LABS: Alanine Aminotransferase 6 Units/L (7-52); Albumin 3.5 g/dL (3.5-5.7); Alkaline Phosphatase 105 Units/L (34-104); Aspartate Amino Transferase 31 Units/L (13-39); BUN/Creatinine Ratio 17 (6-26); Bilirubin,Direct 0.1 mg/dL (0.0-0.2); Bilirubin,Indirect 0.5 mg/dL (0.0-1.2); Bilirubin,Total 0.6 mg/dL (0.3-1.0); Blood Urea Nitrogen 17 mg/dL (8-23); Calcium 8.4 mg/dL (8.6-10.3); Carbon Dioxide 30 mEq/L (23-29); Chloride 101 mEq/L (98-107); Globulin 3.4 g/dL (2.4-3.5); Glucose 104 mg/dL (70-105); Osmolality,Calculated 288 (280-300); Potassium 4.6 mEq/L (3.5-5.1); Sodium 138 mEq/L (136-145); Total Protein 6.9 g/dL (6.4-8.9); eGFR For African Americans > 60 (> 60); eGFR For Non-African Americans > 60 (> 60)
[2019-01-06 01:00] LABS: Troponin I < 0.03 ng/mL (< 0.04)
[2019-01-06] MEDS ORDERED: levoFLOXacin 750 MG TABLET PO ONE (01:29)
--- NOTE | 2019-01-06 01:42 | Emergency Department Note ---
Disposition Clinical Impression: Weakness, Confusion UTI (urinary tract infection) Qualifiers: Urinary tract infection type: acute cystitis Hematuria presence: without hematuria Qualified Code(s): N30.00 - Acute cystitis without hematuria Disposition: Admitted As Inpatient Condition: Fair Time of Disposition: 02:20 General Adult HPI - General Chief complaint: ED Altered Mental Status Stated complaint: altered mental status Time Seen by Provider: 01/06/19 00:25 Source: patient, EMS Mode of arrival: EMS Limitations: no limitations Nursing Notes Reviewed: Yes Vital Signs Reviewed: Yes - History of Present Illness HPI Narrative: Patient is a 88-year-old male with a past medical history of atrial fibrillation, GERD, Parkinson's presenting to the ED for confusion and general weakness. 3 days ago the patient had a Jennings catheter placed due to urinary incontinence by Dr. Culp (urology). Since then he has been increasingling confused and family feels he has been hallucinating. He also had a near fall today while using his walker but his was able to help him to the ground. Patient is AOx3 on my evaluation. Denying any pain. No cough, congestion, chest pain, dyspnea, vomiting, diarrhea at this time. Lives at home with his and she is concerned for his safety. Pain Scale: 0 - Related Data Home Medications Medication Instructions Recorded Confirmed Omeprazole [PriLOSEC] 20 mg PO DAILY 12/11/16 01/06/19 Aspirin Enteric Coated [Aspirin EC] 81 mg PO DAILY 03/22/17 01/06/19 Tamsulosin [Flomax] 0.4 mg PO QAM 03/22/17 01/06/19 Sennosides [Natural Laxative] 8.6 mg PO 2XW PRN 02/10/18 01/06/19 FLUoxetine HCl [Fluoxetine HCl] 40 mg PO DAILY 05/03/18 01/06/19 Garlic 500 mg PO DAILY 05/03/18 01/06/19 Multivit-Min/FA/Lycopen/Lutein 1 tab PO DAILY 05/03/18 01/06/19 [Men 50 Plus Multivitamin Tab] Vit C/E/Zn/Coppr/Lutein/Zeaxan 1 cap PO BID 05/03/18 01/06/19 [Preservision Areds 2 Softgel] Finasteride 5 mg PO DAILY 01/06/19 01/06/19 Previous Rx's Medication Instructions Recorded Carbidopa/Levodopa 25/100 [Sinemet 1 each PO QID tablet 05/06/18 25/100] Allergies Allergy/AdvReac Type Severity Reaction Status Date / Time No Known Allergies Allergy Verified 05/03/18 17:23 All systems ED: reviewed and negative except as stated. Review of Systems: As Per HPI Constitutional: Reports: weakness. Denies: fever, chills Cardiovascular: Denies: chest pain, palpitations Respiratory: Denies: cough, dyspnea, wheezes Gastrointestinal: Denies: abdominal pain, nausea, vomiting, diarrhea Genitourinary: Denies: urgency, dysuria, frequency Neurological: Reports: confusion. Denies: headache, weakness, numbness, paresthesias, abnormal gait, vertigo Past Medical History - Past Medical History Attestation: Yes The following information was validated with the patient. Medical history: Reports: atrial fibrillation, cancer, GERD, hyperlipidemia, venous stasis, other Surgical history: Reports: cataract, cholecystectomy, herniorrhaphy, vascular surgery Psychiatric history: Reports: no psych history - Social History Smoking Status: Never smoker Smokeless Tobacco Status: No Alcohol use: Reports: none Drug use: Reports: none Physical Exam CONSTITUTIONAL: Well-appearing; A&O X 3, in no apparent distress. Cachectic. HEAD: Normocephalic; atraumatic EYES: PERRL, no scleral icterus NOSE: The nose is normal in appearance without rhinorrhea NECK: No JVD or distended neck veins RESP: Normal chest excursion with respiration; breath sounds clear and equal bilaterally; no wheezes, rhonchi, or rales CARD: Regular rhythm, without murmurs, rub or gallop ABD: Non-distended; non-tender, soft, without rigidity, rebound or guarding,no pulsatile mass CHEST: No pain with palpation SKIN: Normal for age and race; warm and dry without diaphoresis ; no apparent lesions EXTREMITIES: Pulses are 2 plus and equal times 4 extremities, no peripheral edema or calf muscle pain NEUROLOGICAL: Patient is alert and oriented times three. Cranial nerves III- XII are intact. Sensory and motor functions are intact. Strength is 5/5 for flexion and extension in all 4 extremities. Patellar DTRS are equal and intact. Finger to nose testing is equal and normal bilaterally. - General Limitations: no limitations General appearance: alert, in no apparent distress Course Course Narrative: Patient's urine is concerning for urinary tract infection at bedside is very dark and cloudy and on urinalysis does have signs of infection. His chest x-ray is read as possible pneumonia versus effusion by the radiologist however when compared to the prior x-ray looks improved and he has no respiratory symptoms. These share decision-making with the family to determine patient's disposition they felt that he was unsafe going home due to his weakness to admit him to the hospitalist for his UTI and weakness. Vital Signs Temperature 98.3 F 01/06/19 00:04 Pulse Rate 86 01/06/19 00:04 Respiratory Rate 01/06/19 00:04 Blood Pressure 116/49 01/06/19 00:04 O2 Sat by Pulse Oximetry 95 01/06/19 00:04 Temperature 98.3 F 01/06/19 00:04 Pulse Rate 74 01/06/19 03:02 Respiratory Rate 01/06/19 03:02 Blood Pressure 137/76 01/06/19 03:02 O2 Sat by Pulse Oximetry 97 01/06/19 03:02 Oxygen Delivery Oxygen Delivery Room Air Medical Decision Making - Medical Records Medical records reviewed: Yes I reviewed the patient's medical records. - Lab Data Lab results reviewed: Yes I reviewed the patient's lab results. Result diagrams: 01/06/19 00:22 01/06/19 00:22 Lab Results 01/06/19 01/06/19 01/06/19 Range/Units 00:04 00:13 00:22 WBC 6.8 (4.3-11.1) K/mcL RBC 4.05 L (4.19-5.50) M/mcL Hgb 12.1 L (12.9-16.9) g/dL Hct 37.9 (37.5-50.1) % MCV 93.6 (83.0-100.0) fL MCH 29.9 (28.0-33.3) pg MCHC 31.9 (31.6-35.5) g/dL RDW 12.7 (11.5-14.5) % Plt Count 240 (140-400) K/mcL MPV 9.6 (9.4-12.4) fL Immature Gran % 0.3 (0-4) % Seg Neutrophils % 71.7 % Lymphocytes % 16.2 % Monocytes % 10.0 % Eosinophils % 1.5 % Basophils % 0.3 % Neutrophils # 4.9 (1.6-8.9) K/mcL Lymphocytes # 1.1 (0.6-4.6) K/mcL Monocytes # 0.7 (0.0-1.3) K/mcL Eosinophils # 0.1 (0.0-0.6) K/mcL Basophils # 0.0 (0.0-0.2) K/mcL PT (9.4-12.1) Seconds INR APTT (26.0-36.0) Seconds Sodium (136-145) mEq/L Potassium (3.5-5.1) mEq/L Chloride (98-107) mEq/L Carbon Dioxide (23-29) mEq/L BUN (8-23) mg/dL Creatinine (0.70-1.30) mg/dL Est GFR ( Amer) (> 60) Est GFR (Non-Af Amer) (> 60) BUN/Creatinine Ratio (6-26) Glucose (70-105) mg/dL POC Glucose 108 H (70-99) mg/dL Calculated Osmolality (280-300) Calcium (8.6-10.3) mg/dL Total Bilirubin (0.3-1.0) mg/dL Direct Bilirubin (0.0-0.2) mg/dL Indirect Bilirubin (0.0-1.2) mg/dL AST (13-39) Units/L ALT (7-52) Units/L Alkaline Phosphatase (34-104) Units/L Troponin I (< 0.04) ng/mL Serum Total Protein (6.4-8.9) g/dL Albumin (3.5-5.7) g/dL Globulin (2.4-3.5) g/dL Albumin/Globulin Ratio (1.1-2.2) Urine Color Dark Yellow (Yellow) Urine Clarity Cloudy A (Clear) Urine pH 7.0 (5.0-8.0) pH Units Ur Specific [place] 1.024 (1.010-1.025) Urine Protein 100 H (Neg-Trace) mg/dL Urine Glucose (UA) Normal (Normal) mg/dL Urine Ketones Trace H (Negative) mg/dL Urine Blood Large H (Negative) Urine Nitrite Negative (Negative) Urine Bilirubin Negative (Negative) Urine Urobilinogen Normal (Normal) mg/dL Ur Leukocyte Esterase Moderate H (Negative) Urine Microscopic RBC TNTC H (0-3) per hpf Urine Microscopic WBC 30-50 H (0-3) per hpf Ur Squamous Epith Cells None Seen (None-Few) per lpf Urine Bacteria Many H (None-Few) per hpf Hyaline Casts None Seen (None-Few) per lpf Ur Culture Indicated? YES A (NO) 01/06/19 01/06/19 Range/Units 00:22 00:22 WBC (4.3-11.1) K/mcL RBC (4.19-5.50) M/mcL Hgb (12.9-16.9) g/dL Hct (37.5-50.1) % MCV (83.0-100.0) fL MCH (28.0-33.3) pg MCHC (31.6-35.5) g/dL RDW (11.5-14.5) % Plt Count (140-400) K/mcL MPV (9.4-12.4) fL Immature Gran % (0-4) % Seg Neutrophils % % Lymphocytes % % Monocytes % % Eosinophils % % Basophils % % Neutrophils # (1.6-8.9) K/mcL Lymphocytes # (0.6-4.6) K/mcL Monocytes # (0.0-1.3) K/mcL Eosinophils # (0.0-0.6) K/mcL Basophils # (0.0-0.2) K/mcL PT 13.3 H (9.4-12.1) Seconds INR 1.2 APTT 28.8 (26.0-36.0) Seconds Sodium 138 (136-145) mEq/L Potassium 4.6 (3.5-5.1) mEq/L Chloride 101 (98-107) mEq/L Carbon Dioxide 30 H (23-29) mEq/L BUN 17 (8-23) mg/dL Creatinine 1.00 (0.70-1.30) mg/dL Est GFR ( Amer) > 60 (> 60) Est GFR (Non-Af Amer) > 60 (> 60) BUN/Creatinine Ratio 17 (6-26) Glucose 104 (70-105) mg/dL POC Glucose (70-99) mg/dL Calculated Osmolality 288 (280-300) Calcium 8.4 L (8.6-10.3) mg/dL Total Bilirubin 0.6 (0.3-1.0) mg/dL Direct Bilirubin 0.1 (0.0-0.2) mg/dL Indirect Bilirubin 0.5 (0.0-1.2) mg/dL AST 31 (13-39) Units/L ALT 6 L (7-52) Units/L Alkaline Phosphatase 105 H (34-104) Units/L Troponin I < 0.03 (< 0.04) ng/mL Serum Total Protein 6.9 (6.4-8.9) g/dL Albumin 3.5 (3.5-5.7) g/dL Globulin 3.4 (2.4-3.5) g/dL Albumin/Globulin Ratio 1.0 L (1.1-2.2) Urine Color (Yellow) Urine Clarity (Clear) Urine pH (5.0-8.0) pH Units Ur Specific [place] (1.010-1.025) Urine Protein (Neg-Trace) mg/dL Urine Glucose (UA) (Normal) mg/dL Urine Ketones (Negative) mg/dL Urine Blood (Negative) Urine Nitrite (Negative) Urine Bilirubin (Negative) Urine Urobilinogen (Normal) mg/dL Ur Leukocyte Esterase (Negative) Urine Microscopic RBC (0-3) per hpf Urine Microscopic WBC (0-3) per hpf Ur Squamous Epith Cells (None-Few) per lpf Urine Bacteria (None-Few) per hpf Hyaline Casts (None-Few) per lpf Ur Culture Indicated? (NO) - Radiology Data Radiology results reviewed: Yes I reviewed the patient's radiology results. Chest X-Ray 01/06/19 00:45 IMPRESSION: 1. Bilateral pleural effusion, right greater than left with right basilar consolidation possibly reflecting pneumonia. 2. Calcific atherosclerosis aorta. 3. Cardiomegaly. D/ / Jack Enriquez / Jack Enriquez Interpreting Provider: Jack Enriquez Head CT 01/06/19 01:03 IMPRESSION: No acute intracranial abnormality. D/ / Jack Enriquez / Jack Enriquez Interpreting Provider: Jack Enriquez - EKG Data EKG #1 EKG attestation: Yes I reviewed and interpreted this EKG. EKG results narrative: EKG done at 00:13 shows sinus tachycardia rate 104 bpm with occasional PACs. Old EKG in April 2018 shows sinus rhythm at 75 bpm.
--- NOTE | 2019-01-06 03:07 | Emergency Department Note ---
Disposition Clinical Impression: Weakness, Confusion UTI (urinary tract infection) Qualifiers: Urinary tract infection type: acute cystitis Hematuria presence: without hematuria Qualified Code(s): N30.00 - Acute cystitis without hematuria Disposition: Admitted As Inpatient Condition: Fair Time of Disposition: 02:20 General Adult HPI - General Chief complaint: ED Altered Mental Status Stated complaint: altered mental status Time Seen by Provider: 01/06/19 00:25 Source: patient, EMS Mode of arrival: EMS Limitations: no limitations Nursing Notes Reviewed: Yes Vital Signs Reviewed: Yes - History of Present Illness Pain Scale: 0 - Related Data Home Medications Medication Instructions Recorded Confirmed Omeprazole [PriLOSEC] 20 mg PO DAILY 12/11/16 01/06/19 Aspirin Enteric Coated [Aspirin EC] 81 mg PO DAILY 03/22/17 01/06/19 Tamsulosin [Flomax] 0.4 mg PO QAM 03/22/17 01/06/19 Sennosides [Natural Laxative] 8.6 mg PO 2XW PRN 02/10/18 01/06/19 FLUoxetine HCl [Fluoxetine HCl] 40 mg PO DAILY 05/03/18 01/06/19 Garlic 500 mg PO DAILY 05/03/18 01/06/19 Multivit-Min/FA/Lycopen/Lutein 1 tab PO DAILY 05/03/18 01/06/19 [Men 50 Plus Multivitamin Tab] Vit C/E/Zn/Coppr/Lutein/Zeaxan 1 cap PO BID 05/03/18 01/06/19 [Preservision Areds 2 Softgel] Finasteride 5 mg PO DAILY 01/06/19 01/06/19 Previous Rx's Medication Instructions Recorded Carbidopa/Levodopa 25/100 [Sinemet 1 each PO QID tablet 05/06/18 25/100] Allergies Allergy/AdvReac Type Severity Reaction Status Date / Time No Known Allergies Allergy Verified 05/03/18 17:23 Constitutional: Reports: weakness. Denies: fever, chills Cardiovascular: Denies: chest pain, palpitations Respiratory: Denies: cough, dyspnea, wheezes Gastrointestinal: Denies: abdominal pain, nausea, vomiting, diarrhea Genitourinary: Denies: urgency, dysuria, frequency Neurological: Reports: confusion. Denies: headache, weakness, numbness, paresthesias, abnormal gait, vertigo Past Medical History - Past Medical History Medical history: Reports: atrial fibrillation, cancer, GERD, hyperlipidemia, tracey ous stasis, other Surgical history: Reports: cataract, cholecystectomy, herniorrhaphy, vascular surgery Psychiatric history: Reports: no psych history - Social History Smoking Status: Never smoker Smokeless Tobacco Status: No Alcohol use: Reports: none Drug use: Reports: none Physical Exam - General Limitations: no limitations General appearance: alert, in no apparent distress Course Vital Signs Temperature 98.3 F 01/06/19 00:04 Pulse Rate 86 01/06/19 00:04 Respiratory Rate 01/06/19 00:04 Blood Pressure 116/49 01/06/19 00:04 O2 Sat by Pulse Oximetry 95 01/06/19 00:04 Temperature 98.3 F 01/06/19 00:04 Pulse Rate 74 01/06/19 03:02 Respiratory Rate 01/06/19 03:02 Blood Pressure 137/76 01/06/19 03:02 O2 Sat by Pulse Oximetry 97 01/06/19 03:02 Oxygen Delivery Oxygen Delivery Room Air Medical Decision Making - Medical Records Medical records reviewed: Yes I reviewed the patient's medical records. - Lab Data Lab results reviewed: Yes I reviewed the patient's lab results. Result diagrams: 01/06/19 00:22 01/06/19 00:22 Lab Results 01/06/19 01/06/19 01/06/19 Range/Units 00:04 00:13 00:22 WBC 6.8 (4.3-11.1) K/mcL RBC 4.05 L (4.19-5.50) M/mcL Hgb 12.1 L (12.9-16.9) g/dL Hct 37.9 (37.5-50.1) % MCV 93.6 (83.0-100.0) fL MCH 29.9 (28.0-33.3) pg MCHC 31.9 (31.6-35.5) g/dL RDW 12.7 (11.5-14.5) % Plt Count 240 (140-400) K/mcL MPV 9.6 (9.4-12.4) fL Immature Gran % 0.3 (0-4) % Seg Neutrophils % 71.7 % Lymphocytes % 16.2 % Monocytes % 10.0 % Eosinophils % 1.5 % Basophils % 0.3 % Neutrophils # 4.9 (1.6-8.9) K/mcL Lymphocytes # 1.1 (0.6-4.6) K/mcL Monocytes # 0.7 (0.0-1.3) K/mcL Eosinophils # 0.1 (0.0-0.6) K/mcL Basophils # 0.0 (0.0-0.2) K/mcL PT (9.4-12.1) Seconds INR APTT (26.0-36.0) Seconds Sodium (136-145) mEq/L Potassium (3.5-5.1) mEq/L Chloride (98-107) mEq/L Carbon Dioxide (23-29) mEq/L BUN (8-23) mg/dL Creatinine (0.70-1.30) mg/dL Est GFR ( Amer) (> 60) Est GFR (Non-Af Amer) (> 60) BUN/Creatinine Ratio (6-26) Glucose (70-105) mg/dL POC Glucose 108 H (70-99) mg/dL Calculated Osmolality (280-300) Calcium (8.6-10.3) mg/dL Total Bilirubin (0.3-1.0) mg/dL Direct Bilirubin (0.0-0.2) mg/dL Indirect Bilirubin (0.0-1.2) mg/dL AST (13-39) Units/L ALT (7-52) Units/L Alkaline Phosphatase (34-104) Units/L Troponin I (< 0.04) ng/mL Serum Total Protein (6.4-8.9) g/dL Albumin (3.5-5.7) g/dL Globulin (2.4-3.5) g/dL Albumin/Globulin Ratio (1.1-2.2) Urine Color Dark Yellow (Yellow) Urine Clarity Cloudy A (Clear) Urine pH 7.0 (5.0-8.0) pH Units Ur Specific [place] 1.024 (1.010-1.025) Urine Protein 100 H (Neg-Trace) mg/dL Urine Glucose (UA) Normal (Normal) mg/dL Urine Ketones Trace H (Negative) mg/dL Urine Blood Large H (Negative) Urine Nitrite Negative (Negative) Urine Bilirubin Negative (Negative) Urine Urobilinogen Normal (Normal) mg/dL Ur Leukocyte Esterase Moderate H (Negative) Urine Microscopic RBC TNTC H (0-3) per hpf Urine Microscopic WBC 30-50 H (0-3) per hpf Ur Squamous Epith Cells None Seen (None-Few) per lpf Urine Bacteria Many H (None-Few) per hpf Hyaline Casts None Seen (None-Few) per lpf Ur Culture Indicated? YES A (NO) 01/06/19 01/06/19 Range/Units 00:22 00:22 WBC (4.3-11.1) K/mcL RBC (4.19-5.50) M/mcL Hgb (12.9-16.9) g/dL Hct (37.5-50.1) % MCV (83.0-100.0) fL MCH (28.0-33.3) pg MCHC (31.6-35.5) g/dL RDW (11.5-14.5) % Plt Count (140-400) K/mcL MPV (9.4-12.4) fL Immature Gran % (0-4) % Seg Neutrophils % % Lymphocytes % % Monocytes % % Eosinophils % % Basophils % % Neutrophils # (1.6-8.9) K/mcL Lymphocytes # (0.6-4.6) K/mcL Monocytes # (0.0-1.3) K/mcL Eosinophils # (0.0-0.6) K/mcL Basophils # (0.0-0.2) K/mcL PT 13.3 H (9.4-12.1) Seconds INR 1.2 APTT 28.8 (26.0-36.0) Seconds Sodium 138 (136-145) mEq/L Potassium 4.6 (3.5-5.1) mEq/L Chloride 101 (98-107) mEq/L Carbon Dioxide 30 H (23-29) mEq/L BUN 17 (8-23) mg/dL Creatinine 1.00 (0.70-1.30) mg/dL Est GFR ( Amer) > 60 (> 60) Est GFR (Non-Af Amer) > 60 (> 60) BUN/Creatinine Ratio 17 (6-26) Glucose 104 (70-105) mg/dL POC Glucose (70-99) mg/dL Calculated Osmolality 288 (280-300) Calcium 8.4 L (8.6-10.3) mg/dL Total Bilirubin 0.6 (0.3-1.0) mg/dL Direct Bilirubin 0.1 (0.0-0.2) mg/dL Indirect Bilirubin 0.5 (0.0-1.2) mg/dL AST 31 (13-39) Units/L ALT 6 L (7-52) Units/L Alkaline Phosphatase 105 H (34-104) Units/L Troponin I < 0.03 (< 0.04) ng/mL Serum Total Protein 6.9 (6.4-8.9) g/dL Albumin 3.5 (3.5-5.7) g/dL Globulin 3.4 (2.4-3.5) g/dL Albumin/Globulin Ratio 1.0 L (1.1-2.2) Urine Color (Yellow) Urine Clarity (Clear) Urine pH (5.0-8.0) pH Units Ur Specific [place] (1.010-1.025) Urine Protein (Neg-Trace) mg/dL Urine Glucose (UA) (Normal) mg/dL Urine Ketones (Negative) mg/dL Urine Blood (Negative) Urine Nitrite (Negative) Urine Bilirubin (Negative) Urine Urobilinogen (Normal) mg/dL Ur Leukocyte Esterase (Negative) Urine Microscopic RBC (0-3) per hpf Urine Microscopic WBC (0-3) per hpf Ur Squamous Epith Cells (None-Few) per lpf Urine Bacteria (None-Few) per hpf Hyaline Casts (None-Few) per lpf Ur Culture Indicated? (NO) - Radiology Data Radiology results reviewed: Yes I reviewed the patient's radiology results. Chest X-Ray 01/06/19 00:45 IMPRESSION: 1. Bilateral pleural effusion, right greater than left with right basilar consolidation possibly reflecting pneumonia. 2. Calcific atherosclerosis aorta. 3. Cardiomegaly. D/ / Jack Enriquez / Jack Enriquez Interpreting Provider: Jack Enriquez Head CT 01/06/19 01:03 IMPRESSION: No acute intracranial abnormality. D/ / Jack Enriquez / Jack Enriquez Interpreting Provider: Jack Enriquez - EKG Data EKG #1 EKG attestation: Yes I reviewed and interpreted this EKG. EKG results narrative: EKG shows a sinus rhythm with frequent PACs. Ventricular rate 104. No significant change from prior EKG dated 05/03/2018. Critical Care Time Critical Care Time: Yes Total Critical Care Time: 35 Attestation: Critical care performed: Time is exclusive of separately billable procedures. Time includes: direct patient care, patient reassessment, coordination of patient care, interpretation of data (laboratory data, radiology data, and respiratory data), review of patient's medical records, medical consultation and documentation of patient car e. Procedures included in critical care time: Procedures excluded from critical care time: Attestation Statement - Attestation Attestation: I, Daniel Valero MD, personally evaluated this patient and discussed their management with the resident physician. I reviewed the resident's note and agree with the documented findings, medical decision making, and plan of care. I reviewed the residents documentation and agree with the residents assessment and plan of care. I have personally had face to face time with the patient. I personally supervised and was present for the vee/critical portions of the following procedures completed by the resident: EKG interpretation. 88-year-old male presents to the emergency department with a complaint of increasing generalized weakness and decreasing mental status over the past 2 days. Family reports that on Sunday he had a Jennings catheter placed by urology. They report that they had difficulty placing the catheter and had to use a scope. Since that time the patient has become weaker and more confused. They report that he has began hallucinating over the past day or 2 which is not normal for him. He is confused and talking out of his head. He has complained of some chills but they have not noticed any fever. There has been no increased cough or shortness of breath. No vomiting or diarrhea. EMS reports when they took the patient up that the patient was very weak and oriented to person only. Here in the emergency department on arrival the patient is alert and oriented to person and place. Family reports his mental status is improved but still not baseline for him. He is pretty much bedbound and does have frequent falls. Family states he tries to get out of bed and falls frequently. He has fallen a few times today. They do not think he hit his head. Patient denies any headache or head pain or neck pain. He has no specific complaints himself. On examination patient is a well-developed thin elderly male in no acute distress. He is alert and answers questions appropriately. No cyanosis or diaphoresis. Head is atraumatic with no scalp tenderness or hematomas. Neck is nontender with decreased range of motion which is chronic. Patient has marked kyphosis of the thoracic spine. Breath sounds are decreased but equal bilaterally. No rales or wheezes noted. Heart is irregularly irregular. Abdomen is soft and nontender with normal bowel sounds. No pedal edema. No focal neurological deficits. Labs reviewed. Patient does have a UTI. Chest x-ray shows bilateral pleural effusion, right greater than left with right basilar consolidation possibly reflecting pneumonia. However on personal review with the resident of this x- ray and comparison to his previous x-ray this actually looks improved from previous and patient has no cough or shortness of breath or fever at this point. I feel this is likely not pneumonia however we will use Levaquin to treat patient's UTI which would also cover pneumonia. Head CT negative. EKG shows a sinus rhythm with frequent PACs. Ventricular rate 104. No significant change from prior EKG dated 05/03/2018. Blood cultures obtained and IV antibiotics initiated. The hospitalist, Dr. Serrato, was consulted and accepted admission of the patient.
[2019-01-06] MEDS ORDERED: Naloxone 0.4 MG/ML INJ IVP PRN (04:47)
--- NOTE | 2019-01-06 04:53 | Internal Med History&Physical ---
Date of Encounter: 01/06/19 Time of Encounter: 04:50 Internal Medicine - H&P: HPI Chief complaint: Altered mental status History of present illness: Mr. Gtz is a 88 year old male with a past medical history of atrial fibrillation, GERD, Parkinson's presenting to the ED for confusion and general weakness. On my assessment patient was a poor historian and much of the history was obtained from ED records. 3 days ago the patient had a Jennings catheter placed due to urinary incontinence by Dr. Culp (urology). Since then he has been increasingling confused and family feels he has been hallucinating. He also had a near fall today while using his walker but his was able to help him to the ground. In the emergency room patient's vital signs were stable, patient's CBC and BMP were within normal limits. Patient's urinalysis showed small leukocyte esterase and moderate blood but negative nitrites concerning for UTI. His chest x-ray showed possible pneumonia versus effusion by the radiologist however when compared to the prior x-ray looks improved and he has no respiratory symptoms. Chest x-ray showed bilateral opacities right greater than left, CT spine showed no abnormalities and head CT showed no acute intracranial abnormalities. Due to inability to care for himself at home, frequent falls and possible pneumonia he was admitted to the hospital for further management. Upon my evaluation, patient is resting comfortably in the hospital bed. He is oriented to self and birthdate and answers questions appropriately but he is unaware of why he is in the hospital or which hospital it was. He did not know the current date. He did however deny nausea, vomiting, diarrhea, constipation, chest pain and abdominal pain. Patient was started on levofloxacin for treatment of UTI. Family felt that he was unsafe going home due to his weakness and will admit for his UTI and weakness. Past Med Surg Social Fam HX - Past Medical History Medical history: atrial fibrillation, cancer, GERD, hyperlipidemia, venous stasis, other Additional medical history: skin cancer. Parkinson's Psychiatric history: no psych history - Past Surgical History Surgical History: cataract, cholecystectomy, herniorrhaphy, vascular surgery Additional surgical history: Vein ablasions - Social History Smoking Status: Never smoker Smokeless Tobacco Status: No Alcohol use: none Drug use: none - Family History Mother Living Status: Hx Family Neuromuscular Disorders: Yes (subarachnoid hemorrhage in 40's) Father Hx Family Neuromuscular Disorders: Yes Sister Living Status: Hx Family Cancer: Yes (pt unsure what kind of cancer) Internal Medicine - H&P: Meds Omeprazole [PriLOSEC] 20 mg PO DAILY 12/11/16 [History] Aspirin Enteric Coated [Aspirin EC] 81 mg PO DAILY 03/22/17 [History] Tamsulosin [Flomax] 0.4 mg PO QAM 03/22/17 [History] Sennosides [Natural Laxative] 8.6 mg PO 2XW PRN 02/10/18 [History] FLUoxetine HCl [Fluoxetine HCl] 40 mg PO DAILY 05/03/18 [History] Garlic 500 mg PO DAILY 05/03/18 [History] Multivit-Min/FA/Lycopen/Lutein [Men 50 Plus Multivitamin Tab] 1 tab PO DAILY 05/03/18 [History] Vit C/E/Zn/Coppr/Lutein/Zeaxan [Preservision Areds 2 Softgel] 1 cap PO BID 05/03/18 [History] Carbidopa/Levodopa [Carbidopa-Levodopa 25-100 Tab] 1 tab PO TID 01/06/19 [History] Finasteride [Proscar] 5 mg PO DAILY 01/06/19 [History] Allergy/AdvReac Type Severity Reaction Status Date / Time No Known Allergies Allergy Verified 05/03/18 17:23 All Systems PM: A 10-system review of systems was performed and is negative for pertinent findings except as documented above in the HPI. - Constitutional Constitutional: no chills, no fever(s), no night sweats - EENT Eyes: no change in vision, no discharge, no pain, no photophobia Ears: no ear discharge, no ear pain, no tinnitus Nose, mouth and throat: no dysphagia, no nasal discharge, no neck pain, no sore throat - Cardiovascular Cardiovascular ROS IM: no chest pain, no diaphoresis, no dyspnea, no lightheadedness, no palpitations, no syncope - Respiratory Respiratory: no cough, no dyspnea, no wheezing, no excessive phlegm production - Gastrointestinal Gastrointestinal: no abdominal pain, no diarrhea, no hematemesis, no hematochezia, no melena, no nausea, no vomiting - Musculoskeletal Musculoskeletal ROS IM: no numbness, no tingling - Integumentary Integumentary IM: no rash, no unusual bruising - Neurological Neurological ROS: no confusion, no convulsions, no focal weakness, no numbness, no tingling, no tremor(s) - Hematologic/Lymphatic Hematologic/Lymphatic: no easy bruising - Constitutional Vitals: Temp Pulse Resp BP Pulse Ox 97.9 F 66 16 146/73 93 01/06/19 04:15 01/06/19 04:15 01/06/19 04:15 01/06/19 04:01/06/19 04:15 Exam: General: Alert and oriented Skin:Normal color, no rash, no lesions. HEENT:EOM, pupils equal, round and reactive. Cardiovascular:Normal S1 & S2, no rubs, murmurs or gallops. No JVD. Pulse regula r. Lungs:Normal breath sounds, no wheezes or crackles. Abdomen:Soft, non-tender, no rigidity. Extremities:No deformity, no edema or tenderness, no joint swelling or clubbing. Neurological:Normal cognition and motor skills. Pulses:Carotid and radial pulses normal +2. Rest of the physical exam is non contributory Internal Med - H&P Results - Labs CBC & Chem 7: 01/07/19 04:43 01/07/19 04:43 Labs: Short CBC 01/06/19 Range/Units 00:22 WBC 6.8 (4.3-11.1) K/mcL Hgb 12.1 L (12.9-16.9) g/dL Hct 37.9 (37.5-50.1) % Plt Count 240 (140-400) K/mcL Neutrophils # 4.9 (1.6-8.9) K/mcL BMP 01/06/19 00:22 Sodium 138 Potassium 4.6 Chloride 101 Carbon Dioxide 30 H BUN 17 Creatinine 1.00 Glucose 104 Calcium 8.4 L Cardiac Enzymes 01/06/19 Range/Units 00:22 Troponin I < 0.03 (< 0.04) ng/mL Liver Function 01/06/19 Range/Units 00:22 Total Bilirubin 0.6 (0.3-1.0) mg/dL Direct Bilirubin 0.1 (0.0-0.2) mg/dL AST 31 (13-39) Units/L ALT 6 L (7-52) Units/L Alkaline Phosphatase 105 H (34-104) Units/L Albumin 3.5 (3.5-5.7) g/dL Urine 01/06/19 Range/Units 00:04 Urine Color Dark Yellow (Yellow) Urine Clarity Cloudy A (Clear) Urine pH 7.0 (5.0-8.0) pH Units Ur Specific [place] 1.024 (1.010-1.025) Urine Protein 100 H (Neg-Trace) mg/dL Urine Glucose (UA) Normal (Normal) mg/dL - Impressions ITS Impressions Chest X-Ray 01/06/19 00:45 IMPRESSION: 1. Bilateral pleural effusion, right greater than left with right basilar consolidation possibly reflecting pneumonia. 2. Calcific atherosclerosis aorta. 3. Cardiomegaly. D/ / Jack Enriquez / Jack Enriquez Interpreting Provider: Jack Enriquez Head CT 01/06/19 01:03 IMPRESSION: No acute intracranial abnormality. D/ / Jack Enriquez / Jack Enriquez Interpreting Provider: Jack Enriquez - Assessment and Plan (1) Confusion Current Visit: Yes Status: Acute Assessment and plan: Patient presenting with increased confusion and hallucinations. Recently had Jennings catheter placed 3 days ago due to urinary incontinence. UA suggestive of UTI though sample obtained from Jennings catheter. No other toxic or metabolic derangements. Suspect altered mental status secondary to possible UTI. We will continue treatment for underlying cause. (2) UTI (urinary tract infection) Current Visit: Yes Status: Acute Assessment and plan: Jennings catheter placed 3 days ago due to urinary incontinence by Dr. Culp (urology). Urine sample obtained from current Jennings due to concern that replacement of Jennings would be difficult. UA showing moderate leukocyte esterase and microscopic hematuria. No other systemic signs of infection. -Patient received levofloxacin -Follow up urine culture -Consider consulting urology for replacement of Jennings catheter. Qualifiers: Urinary tract infection type: acute cystitis Hematuria presence: without hematuria Qualified Code(s): N30.00 - Acute cystitis without hematuria (3) Weakness Current Visit: Yes Status: Acute Assessment and plan: Patient presenting with increased weakness following insertion of Jennings catheter 3 days ago in the setting of underlying Parkinson's disease and recurrent fall history. Possible UTI and questionable pneumonia. -Continue supportive fluids and antibiotics. (4) Frequent falls Current Visit: No Status: Chronic Assessment and plan: Patient had recent fall today, and history of frequent falls throughout the last year. Unclear if this is progression of Parkinson disease versus new underlying infection. [facility] but from documentation during previous admission, has not been compliant with home exercises. concerned that she would be unable to care for him if he were to fall. -PT OT evaluation -Fall precautions -Consider health and social care teacher consult (5) Parkinson disease Current Visit: No Status: Chronic Assessment and plan: Continue home meds (6) DVT prophylaxis Current Visit: No Status: Chronic Assessment and plan: Intermittent pneumatic compression devices - Time Spent With Patient Total time spent is greater than 50% in coordination of care (as documented) at patient's floor/unit and/or counseling patient:
[2019-01-06] MEDS ORDERED: D5% in 0.45% NACL 1,000 ML IVC SCH (05:00)
[2019-01-06] MEDS ORDERED: Sennosides 8.6 MG TABLET PO PRN (05:01)
[2019-01-06] MEDS: Multivit/Ca/Min/Fe/FA 1 TAB TABLET PO SCH (05:30)
[2019-01-06] MEDS: Finasteride 5 MG TABLET PO SCH (08:28)
[2019-01-06] MEDS: Carbidopa/Levodopa 25/100 TABLET PO SCH ×4 (08:28→21:01)
[2019-01-06] MEDS: FLUoxetine 20 MG CAPSULE PO SCH (08:28)
[2019-01-06] MEDS: Aspirin Enteric Coated 81 MG Tablet PO SCH (08:29)
[2019-01-06] MEDS ORDERED: NON-FORMULARY MEDICATION 1 EACH EACH (Vit C/E/Zn/Coppr/Lutein/Zeaxan [Preservision Areds 2 PO SCH (09:00)
[2019-01-06] MEDS ORDERED: GARLIC 500 MG PO SCH (09:00)
[2019-01-06] MEDS: cefTRIAXone 1,000 MG in Water for inj. (sterile) 10 ML IVP SCH (11:10)
--- NOTE | 2019-01-06 11:41 | Internal Med Progress Note ---
Hospitalist Progress Note - Encounter Date of Encounter: 01/06/19 Time of Encounter: 09:40 - Subjective Interval History: Mr. Gtz is a 88 year old male with a past medical history of atrial fibrillation, GERD, Parkinson's presenting to the ED for confusion and general weakness. In the emergency room patient's vital signs were stable, patient's CBC and BMP were within normal limits. Patient's urinalysis showed small leukocyte esterase and moderate blood but negative nitrites concerning for UTI. His chest x-ray showed bilateral opacities right greater than left, CT spine showed no abnormalities and head CT showed no acute intracranial abnormalities. Due to inability to care for himself at home, frequent falls and possible pneumonia he was admitted to the hospital for further management. He was admitted in the hospital and placed him on campus monitor. His alert, awake and oriented to self only, he still looks confused and very lethargic. - Exam Vitals: Temp Pulse Resp BP Pulse Ox 97.9 F 72 16 120/62 96 01/06/19 10:48 01/06/19 10:48 01/06/19 10:48 01/06/19 10:48 01/06/19 10:48 Exam: Gen: Alert, awake, Oriented to self only looks weak and lethargic Chest: Diminished breath sounds B/L, No wheezing, No crackles, No rales Heart: S1S2+ RRR No murmurs Abd: Soft, NT, BS +, No organomegaly Ext: No edema, pulses are palpable, No calf tenderness Neuro : confused.. unable to follow most of the commands due to his AMS with advanced dementia. Skin: No rash. - Assessment and Plan (1) Confusion Current Visit: Yes Status: Acute Assessment and Plan: He might have acute toxic enchepalopathy Cont symptomatic and supportive care started on empirical abx Rocephin will fu on urine cx (2) Pneumonia Current Visit: No Status: Acute Assessment and Plan: CXR is concerning for possible aspiration PNA cont IV Rocephin + Will add Unasyn for anaerobic coverahe Will consult speech for eval (3) UTI (urinary tract infection) Current Visit: Yes Status: Acute Assessment and Plan: Escalera catheter placed 3 days ago due to urinary incontinence by Dr. Culp (urology) cont escalera for retention UA is abnormal.. concerning for UTI started on IV Rocephin (4) Weakness Current Visit: Yes Status: Acute Assessment and Plan: Multi factorial due to UTI + Possible aspiration PNA PT / OT eval may need placement (5) Frequent falls Current Visit: No Status: Chronic Assessment and Plan: Fall precautions (6) Parkinson disease Current Visit: No Status: Chronic Assessment and Plan: Continue home meds (7) DVT prophylaxis Current Visit: No Status: Chronic Assessment and Plan: Intermittent pneumatic compression devices (8) Protein-calorie malnutrition, severe Current Visit: Yes Status: Acute Assessment and Plan: concenring for severe PCM with failure to thrive Consulted Nutrition for further eval (9) Failure to thrive in adult Current Visit: Yes Status: Acute - Time Spent with Patient Total time spent is greater than 50% in coordination of care (as documented) at patient's floor/unit and/or counseling patient: Internal Medicine: Result - Labs CBC & Chem 7: 01/06/19 00:22 01/06/19 00:22 Labs: Short CBC 01/06/19 Range/Units 00:22 WBC 6.8 (4.3-11.1) K/mcL Hgb 12.1 L (12.9-16.9) g/dL Hct 37.9 (37.5-50.1) % Plt Count 240 (140-400) K/mcL Neutrophils # 4.9 (1.6-8.9) K/mcL BMP 01/06/19 00:22 Sodium 138 Potassium 4.6 Chloride 101 Carbon Dioxide 30 H BUN 17 Creatinine 1.00 Glucose 104 Calcium 8.4 L Cardiac Enzymes 01/06/19 Range/Units 00:22 Troponin I < 0.03 (< 0.04) ng/mL Liver Function 01/06/19 Range/Units 00:22 Total Bilirubin 0.6 (0.3-1.0) mg/dL Direct Bilirubin 0.1 (0.0-0.2) mg/dL AST 31 (13-39) Units/L ALT 6 L (7-52) Units/L Alkaline Phosphatase 105 H (34-104) Units/L Albumin 3.5 (3.5-5.7) g/dL Urine 01/06/19 Range/Units 00:04 Urine Color Dark Yellow (Yellow) Urine Clarity Cloudy A (Clear) Urine pH 7.0 (5.0-8.0) pH Units Ur Specific [place] 1.024 (1.010-1.025) Urine Protein 100 H (Neg-Trace) mg/dL Urine Glucose (UA) Normal (Normal) mg/dL - ABG Interpretation ABG results: PT/INR, D-dimer PT 13.3 Seconds (9.4-12.1) H 01/06/19 00:22 - Impressions Impressions Chest X-Ray 01/06/19 00:45 IMPRESSION: 1. Bilateral pleural effusion, right greater than left with right basilar consolidation possibly reflecting pneumonia. 2. Calcific atherosclerosis aorta. 3. Cardiomegaly. D/ / Jack Enriquez / Jack Enriquez Interpreting Provider: Jack Enriquez Head CT 01/06/19 01:03 IMPRESSION: No acute intracranial abnormality. D/ / Jack Enriquez / Jack Enriquez Interpreting Provider: Jack Enriquez Consult Discharge Plan - Plan Referrals: Star Pierre DO [Primary Care Provider] - (2) Pneumonia Qualifiers: Pneumonia type: aspiration pneumonia Laterality: right Lung location: unspecified part of lung (3) UTI (urinary tract infection) Qualifiers: Urinary tract infection type: acute cystitis Hematuria presence: without hematuria Qualified Code(s): N30.00 - Acute cystitis without hematuria
--- NOTE | 2019-01-06 13:54 | Electrocardiograph Report ---
[place] [id number] Test Date: 2019-01-06 Pat Name: Jeffery Gtz Department: [id number] Room: 3B21 Gender: M Burr Grinder: : 1930 Requested By: Daniel Valero Order Number: [id number] Reading MD: Massimo Garcia Measurements Intervals [place] Rate: 104 P: 17 MO: 191 QRS: -47 QRSD: 148 T: 19 QT: 390 QTc: 478 Interpretive Statements Sinus tachycardia Multiple premature complexes, vent & supraven RBBB and LAFB Electronically Signed On 01-06-2019 13:53:11 EDT by Massimo Garcia
[2019-01-06] MEDS: *HR* Heparin 5,000 UNIT/ML VIAL SQ SCH (17:33)
[2019-01-06] MEDS ORDERED: Ziprasidone 10 MG in Water for inj. (sterile) 0.5 ML IM ONE ×2 (21:32→23:45)
[2019-01-07 05:50] LABS: Hematocrit 36.5 % (37.5-50.1); Hemoglobin 12.1 g/dL (12.9-16.9); Mean Corpuscular HGB Conc 33.2 g/dL (31.6-35.5); Mean Corpuscular Volume 93.6 fL (83.0-100.0); Mean Platelet Volume 10.2 fL (9.4-12.4); Platelet Count 235 K/mcL (140-400); Red Cell Distribution Width 12.7 % (11.5-14.5)
[2019-01-07 06:02] LABS: White Blood Count 11.2 K/mcL (4.3-11.1)
[2019-01-07 06:12] LABS: BUN/Creatinine Ratio 22 (6-26); Blood Urea Nitrogen 17 mg/dL (8-23); Calcium 8.3 mg/dL (8.6-10.3); Carbon Dioxide 28 mEq/L (23-29); Chloride 100 mEq/L (98-107); Glucose 130 mg/dL (70-105); Osmolality,Calculated 289 (280-300); Potassium 4.1 mEq/L (3.5-5.1); Sodium 138 mEq/L (136-145); eGFR For African Americans > 60 (> 60); eGFR For Non-African Americans > 60 (> 60)
[2019-01-07] MEDS: *HR* Heparin 5,000 UNIT/ML VIAL SQ SCH ×2 (09:53→16:25)
[2019-01-07] MEDS: FLUoxetine 20 MG CAPSULE PO SCH (09:58)
[2019-01-07] MEDS: cefTRIAXone 1,000 MG in Water for inj. (sterile) 10 ML IVP SCH (09:58)
[2019-01-07] MEDS: Finasteride 5 MG TABLET PO SCH (09:59)
[2019-01-07] MEDS: Aspirin Enteric Coated 81 MG Tablet PO SCH (09:59)
[2019-01-07] MEDS: Multivit/Ca/Min/Fe/FA 1 TAB TABLET PO SCH (09:59)
[2019-01-07] MEDS: Carbidopa/Levodopa 25/100 TABLET PO SCH ×4 (09:59→19:15)
--- NOTE | 2019-01-07 12:49 | Internal Med Progress Note ---
Hospitalist Progress Note - Encounter Date of Encounter: 01/07/19 Time of Encounter: 09:30 - Subjective Interval History: Pt was seen and examined at bed side. He is alert, awake and O to self only.. Looks confused and demented. He is still very dehydrated with dry mucus membranes. - Exam Vitals: Temp Pulse Resp BP Pulse Ox 97.4 F L 73 15 127/71 91 01/07/19 11:38 01/07/19 11:38 01/07/19 11:38 01/07/19 11:38 01/07/19 11:38 Exam: Gen: Alert, awake, Oriented to self only looks weak and lethargic dry mucous membranes Chest: Diminished breath sounds B/L, No wheezing, No crackles, No rales Heart: S1S2+ RRR No murmurs Abd: Soft, NT, BS +, No organomegaly Ext: No edema, pulses are palpable, No calf tenderness Neuro : confused.. unable to follow most of the commands due to his AMS with advanced dementia. Skin: No rash. - Assessment and Plan (1) Confusion Current Visit: Yes Status: Acute Assessment and Plan: He might have acute toxic enchepalopathy and possible metabolic encephalopathy too also worsening dementia Cont symptomatic and supportive care Cont empirical abx Rocephin (2) Pneumonia Current Visit: No Status: Acute Assessment and Plan: CXR is concerning for possible aspiration PNA cont IV Rocephin + Will add Unasyn for anaerobic coverahe Speech eval done.. Recommend MBS (3) UTI (urinary tract infection) Current Visit: Yes Status: Acute Assessment and Plan: Escalera catheter placed 3 days ago due to urinary incontinence by Dr. Culp (urology) cont escalera for retention UA is abnormal.. concerning for UTI Cont IV Rocephin Urine cx no growth. (4) Weakness Current Visit: Yes Status: Acute Assessment and Plan: Multi factorial due to UTI + Possible aspiration PNA PT / OT eval may need placement (5) Frequent falls Current Visit: No Status: Chronic Assessment and Plan: Fall precautions (6) Parkinson disease Current Visit: No Status: Chronic Assessment and Plan: Continue home meds (7) DVT prophylaxis Current Visit: No Status: Chronic Assessment and Plan: on SQ Heparin (8) Protein-calorie malnutrition, severe Current Visit: Yes Status: Acute Assessment and Plan: concerning for severe PCM with failure to thrive His Prealbumin level @ 9.2 Consulted Nutrition for further eval (9) Failure to thrive in adult Current Visit: Yes Status: Acute Assessment and Plan: Due to advanced dementia will talk to family about palliative care options - Time Spent with Patient Total time spent is greater than 50% in coordination of care (as documented) at patient's floor/unit and/or counseling patient: Internal Medicine: Result - Labs CBC & Chem 7: 01/07/19 04:43 01/07/19 04:43 Labs: Short CBC 01/07/19 Range/Units 04:43 WBC 11.2 H D (4.3-11.1) K/mcL Hgb 12.1 L (12.9-16.9) g/dL Hct 36.5 L (37.5-50.1) % Plt Count 235 (140-400) K/mcL BMP 01/07/19 04:43 Sodium 138 Potassium 4.1 Chloride 100 Carbon Dioxide 28 BUN 17 Creatinine 0.77 Glucose 130 H Calcium 8.3 L - ABG Interpretation ABG results: PT/INR, D-dimer PT 13.3 Seconds (9.4-12.1) H 01/06/19 00:22 Consult Discharge Plan - Plan Referrals: Star Pierre DO [Primary Care Provider] - (2) Pneumonia Qualifiers: Pneumonia type: aspiration pneumonia Laterality: right Lung location: unspecified part of lung (3) UTI (urinary tract infection) Qualifiers: Urinary tract infection type: acute cystitis Hematuria presence: without hematuria Qualified Code(s): N30.00 - Acute cystitis without hematuria
[2019-01-07] MEDS: D5% in 0.45% NACL 1,000 ML IVC SCH (13:39)
[2019-01-07] MEDS ORDERED: E-Z-PAQUE (BARIUM SULF) SUSP 1 BOTTLE PO ONE (14:40)
[2019-01-07 18:32] LABS: Adenovirus Not Detected (Not Detect); Bordetella Pertussis Not Detected (Not Detect); Chlamydophila pneumoniae Not Detected (Not Detect); Coronavirus 229E Not Detected (Not Detect); Coronavirus HKU1 Not Detected (Not Detect); Coronavirus NL63 Not Detected (Not Detect); Coronavirus OC43 Not Detected (Not Detect); Human Metapneumovirus Not Detected (Not Detect); Human Rhinovirus/Enterovirus Not Detected (Not Detect); Influenza A Subtype 2009 H1 Not Detected (Not Detect); Influenza A Untypeable Not Detected (Not Detect); Influenza B Not Detected (Not Detect); Mycoplasma pneumoniae Not Detected (Not Detect); Parainfluenza Virus 1 Not Detected (Not Detect); Parainfluenza Virus 2 Not Detected (Not Detect); Parainfluenza Virus 3 Not Detected (Not Detect); Parainfluenza Virus 4 Not Detected (Not Detect); Respiratory Syncytial Virus Not Detected (Not Detect)
[2019-01-08] MEDS: D5% in 0.45% NACL 1,000 ML IVC SCH ×2 (01:33→13:02)
[2019-01-08 05:13] LABS: BUN/Creatinine Ratio 28 (6-26); Blood Urea Nitrogen 22 mg/dL (8-23); Carbon Dioxide 30 mEq/L (23-29); Chloride 101 mEq/L (98-107); Glucose 132 mg/dL (70-105); Magnesium 1.9 mg/dL (1.6-2.6); Osmolality,Calculated 293 (280-300); Potassium 3.8 mEq/L (3.5-5.1); Sodium 139 mEq/L (136-145); eGFR For African Americans > 60 (> 60); eGFR For Non-African Americans > 60 (> 60)
[2019-01-08] MEDS: Multivit/Ca/Min/Fe/FA 1 TAB TABLET PO SCH (06:22)
[2019-01-08] MEDS: *HR* Heparin 5,000 UNIT/ML VIAL SQ SCH ×2 (06:26→15:49)
[2019-01-08] MEDS: Finasteride 5 MG TABLET PO SCH (13:00)
[2019-01-08] MEDS: FLUoxetine 20 MG CAPSULE PO SCH (13:01)
[2019-01-08] MEDS: Aspirin Enteric Coated 81 MG Tablet PO SCH (13:01)
[2019-01-08] MEDS: Carbidopa/Levodopa 25/100 TABLET PO SCH ×4 (13:01→20:33)
--- NOTE | 2019-01-08 13:47 | Internal Med Progress Note ---
Hospitalist Progress Note - Encounter Date of Encounter: 01/08/19 Time of Encounter: 11:00 - Subjective Interval History: Pt was seen and examined at bed side. He is more alert, awake and Oriented to self only.. Looks confused and demented. No events over night.. Talked to pt's at bed side. - Exam Vitals: Temp Pulse Resp BP Pulse Ox 98.0 F 73 15 109/66 97 01/08/19 11:52 01/08/19 11:52 01/08/19 11:52 01/08/19 11:52 01/08/19 11:52 Exam: Gen: Alert, awake, Oriented to self only looks weak and lethargic dry mucous membranes Chest: Diminished breath sounds B/L, No wheezing, No crackles, No rales Heart: S1S2+ RRR No murmurs Abd: Soft, NT, BS +, No organomegaly Ext: No edema, pulses are palpable, No calf tenderness Neuro : confused.. unable to follow most of the commands due to his AMS with advanced dementia. Skin: No rash. - Assessment and Plan (1) Confusion Current Visit: Yes Status: Acute Assessment and Plan: He might have acute toxic enchepalopathy and possible metabolic encephalopathy too also worsening dementia Cont symptomatic and supportive care changed abx to Unasyn (2) Pneumonia Current Visit: No Status: Acute Assessment and Plan: CXR is concerning for possible aspiration PNA Speech evaluated the pt and did modified barium swallow He is high risk for aspiration.. Speech recommend NPO however pt's do not want to keep him NPO and do not want to proceed with alternate routes of nutrition such as PEG / TPN consulted palliative care team to discuss with pt and family about goals of care Cont empirical abx Unasyn for now (3) UTI (urinary tract infection) Current Visit: Yes Status: Acute Assessment and Plan: Escalera catheter placed 3 days ago due to urinary incontinence by Dr. Culp (urology) cont escalera for retention UA is abnormal.. concerning for UTI Cont IV Unasyn Urine cx no growth. (4) Weakness Current Visit: Yes Status: Acute Assessment and Plan: Multi factorial due to UTI + Possible aspiration PNA PT / OT eval may need placement (5) Frequent falls Current Visit: No Status: Chronic Assessment and Plan: Fall precautions (6) Parkinson disease Current Visit: No Status: Chronic Assessment and Plan: Continue home meds (7) DVT prophylaxis Current Visit: No Status: Chronic Assessment and Plan: on SQ Heparin (8) Protein-calorie malnutrition, severe Current Visit: Yes Status: Acute Assessment and Plan: concerning for severe PCM with failure to thrive His Prealbumin level @ 9.2 Consulted Nutrition Will start him on Ensure (9) Failure to thrive in adult Current Visit: Yes Status: Acute Assessment and Plan: Due to advanced dementia Consulted palliative care team to discuss about goals of care - Time Spent with Patient Total time spent is greater than 50% in coordination of care (as documented) at patient's floor/unit and/or counseling patient: Internal Medicine: Result - Labs CBC & Chem 7: 01/07/19 04:43 01/08/19 04:07 Labs: BMP 01/08/19 04:07 Sodium 139 Potassium 3.8 Chloride 101 Carbon Dioxide 30 H BUN 22 Creatinine 0.79 Glucose 132 H Calcium 8.0 L - ABG Interpretation ABG results: PT/INR, D-dimer PT 13.3 Seconds (9.4-12.1) H 01/06/19 00:22 - Impressions Impressions Videofluoroscopic Swallow 01/07/19 15:13 IMPRESSION: Aspiration of thin barium and applesauce with significant pharyngeal residue in the pyriform sinuses. Please see separate speech pathology report for full discussion of findings and recommendations. D/ / Gary Harden MD / Gary Harden MD Interpreting Provider: Gary Harden MD Consult Discharge Plan - Plan Referrals: Star Pierre DO [Primary Care Provider] - (2) Pneumonia Qualifiers: Pneumonia type: aspiration pneumonia Laterality: right Lung location: unspecified part of lung (3) UTI (urinary tract infection) Qualifiers: Urinary tract infection type: acute cystitis Hematuria presence: without hematuria Qualified Code(s): N30.00 - Acute cystitis without hematuria
--- NOTE | 2019-01-08 15:31 | Palliative - Consult Note ---
<Martine Flores B - Last Filed: 01/08/19 16:02> Date of Encounter: 01/08/19 Time of Encounter: 14:30 - Assessment and Plan (1) Advanced care planning/counseling discussion Status: Acute Assessment and plan: Patient was seen with present at bedside. A goals of care conversation was had. Patient had previosuly been on [facility]ice until this current hospitalization. - Discussed code status, at this time code status will be changed to DNR-CCA/DNI - At this time family does not want to restart hospice, but may consider starting it in the future after seeing progression of patient during his time in rehab - Patient plans to discharge tomorrow to [facility] for rehab. They will determine if the patient needs LTC after rehab is completed - Please see HPI for further details of goals of care discussion - At this time no further management from palliative care. Palliative Care will sign off. Thank you for allowing us to participate in the care of this patient. (2) Palliative care encounter Status: Acute (3) Swallowing impairment Status: Acute Assessment and plan: At this time patient would like to continue to eat food and not be made NPO despite concerns about aspiration, They are aware of the risks involved in this decision. (4) UTI (urinary tract infection) Status: Acute Qualifiers: Urinary tract infection type: acute cystitis Hematuria presence: without hematuria Qualified Code(s): N30.00 - Acute cystitis without hematuria (5) Pneumonia Status: Acute Qualifiers: Pneumonia type: aspiration pneumonia Laterality: right Lung location: unspecified part of lung Qualified Code(s): J69.0 - Pneumonitis due to inhalation of food and vomit (6) Frequent falls Status: Ruled-out Assessment and plan: Patient plans to go to rehab after discharge (7) Parkinson disease Status: Chronic (8) Physical deconditioning Status: Chronic Palliative-CN HPI - Data of Consult Patient: new to practice Consult date: 01/07/19 Requesting Physician: Rodney Del Toro MD Primary Care Provider: Star Pierre DO - Consult Narrative Palliative Care/Comfort Measures: Palliative care Reason for consult: Goals of care History of present illness: Mr. Gtz is a 88 year old male with a past medical history of atrial fibrillation, GERD, and Parkinson's who presented to the ED for weakness and confusion. Since his admission the patient was diagnosed with a UTI and pneumonia. The patient is being seen today for a goals of care discussion. His is at his bedside. The patient is alert and oriented x 2 - to person and place but not to time. The patient was diagnosed durign this admission with swallowing issues that would require the use of a PEG tube due to his high risk for aspiration. At this time the patient and his do not want the patient to be NPO and have the tube, and he wants to resume eating food. They are aware of the risks that this involves. The states that the patient was on [facility] hospice until he was admitted to the hospital. She states that when he was made hospice care, she was informed that it could provider her with numerous extra services in the home, however she was unaware that the patient could not come into the hospital. Hospice care was discussed with the family. At this time they plan for the patient to be discharged tomorrow to [facility] rehab. The goal is for the patient to be able to stand on his own, and his thinks if he is capable of standing, even if he cannot walk, that she would be able to continue to provide him care in the home. 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 Also discussed code status, and discussed the differences between Full code and DNR-CCA/DNI. At this time the patient denies any issues. He reports that he has a good appetite. He says that he is having mostly regular bowel movements. CC: Rodney Del Toro MD - Time Spent with Patient Time: Total time spent is greater than 50% in coordination of care (as documented) at patient's floor/unit and/or counseling patient: Time with patient: 45 minutes Past Med Surg Social Fam HX - Past Medical History Medical history: atrial fibrillation, cancer, GERD, hyperlipidemia, venous stasis, other Additional medical history: skin cancer. Parkinson's Psychiatric history: no psych history - Past Surgical History Surgical History: cataract, cholecystectomy, herniorrhaphy, vascular surgery Additional surgical history: Vein ablasions - Social History Smoking Status: Never smoker Smokeless Tobacco Status: No Alcohol use: none Drug use: none - Family History Mother Living Status: Hx Family Neuromuscular Disorders: Yes (subarachnoid hemorrhage in 40's) Father Hx Family Neuromuscular Disorders: Yes Sister Living Status: Hx Family Cancer: Yes (pt unsure what kind of cancer) Medications and Allergies Omeprazole [PriLOSEC] 20 mg PO DAILY 12/11/16 [History] Aspirin Enteric Coated [Aspirin EC] 81 mg PO DAILY 03/22/17 [History] Tamsulosin [Flomax] 0.4 mg PO QAM 03/22/17 [History] Sennosides [Natural Laxative] 8.6 mg PO 2XW PRN 02/10/18 [History] FLUoxetine HCl [Fluoxetine HCl] 40 mg PO DAILY 05/03/18 [History] Garlic 500 mg PO DAILY 05/03/18 [History] Multivit-Min/FA/Lycopen/Lutein [Men 50 Plus Multivitamin Tab] 1 tab PO DAILY 05/03/18 [History] Vit C/E/Zn/Coppr/Lutein/Zeaxan [Preservision Areds 2 Softgel] 1 cap PO BID 05/03/18 [History] Carbidopa/Levodopa [Carbidopa-Levodopa 25-100 Tab] 1 tab PO TID 01/06/19 [History] Finasteride [Proscar] 5 mg PO DAILY 01/06/19 [History] Amoxicillin/Clavulanate [Augmentin] 875 mg PO BIDWM #10 tablet 01/09/19 [Rx] Metoprolol [Lopressor] 25 mg PO BID #60 tablet 01/09/19 [Rx] Allergy/AdvReac Type Severity Reaction Status Date / Time No Known Allergies Allergy Verified 05/03/18 17:23 - Constitutional Constitutional ROS PAL: frequent falls, no decreased appetite - EENT Eyes: as per HPI - Cardiovascular Cardiovascular ROS: no chest pain - Respiratory Respiratory: no dyspnea - Gastrointestinal Gastrointestinal: constipation, no abdominal pain, no diarrhea, no nausea, no vomiting Additional comments: occasional constipation - Genitourinary Genitourinary ROS male: difficulty urinating (currently has a escalera placed) - Musculoskeletal Musculoskeletal ROS IM: muscle weakness - Neurological Neurological ROS: frequent falls, tremor(s) Palliative Care-Exam - Constitutional Vitals: Temp Pulse Resp BP Pulse Ox 98.0 F 73 15 109/66 97 01/08/19 11:52 01/08/19 11:52 01/08/19 11:52 01/08/19 11:52 01/08/19 11:52 General appearance: Present: average body habitus, no acute distress Exam: had eyes closed during most of the interview while talking with his . - Head Head Exam: Present: atraumatic, normocephalic - Eye Eye exam: Present: normal appearance - ENT ENT exam: Present: mucous membranes moist - Neck Neck exam: Present: full ROM - Respiratory Respiratory exam: Present: CTAB - Cardiovascular Cardiovascular exam: Present: RRR, +S1, +S2 - GI/Abdominal Exam GI/Abdominal exam: Present: normal bowel sounds, soft. Absent: tenderness - Rectal Rectal Exam: Present: deferred - Catheter Type: Urethral (Escalera) - Extremities Exam Extremities exam: Absent: pedal edema - Expanded Neurological Exam Neurological exam expanded: Present: tremor - Skin Skin exam: Present: intact Internal Medicine - CN: Reslt - Labs CBC & Chem 7: 01/07/19 04:43 01/08/19 04:07 Labs: BMP 01/08/19 04:07 Sodium 139 Potassium 3.8 Chloride 101 Carbon Dioxide 30 H BUN 22 Creatinine 0.79 Glucose 132 H Calcium 8.0 L - ABG Interpretation ABG results: PT/INR, D-dimer PT 13.3 Seconds (9.4-12.1) H 01/06/19 00:22 - Impressions Impressions Videofluoroscopic Swallow 01/07/19 15:13 IMPRESSION: Aspiration of thin barium and applesauce with significant pharyngeal residue in the pyriform sinuses. Please see separate speech pathology report for full discussion of findings and recommendations. D/ / Gary Harden MD / Gary Harden MD Interpreting Provider: Gary Harden MD Consult Discharge Plan - Plan Instructions: Metoprolol (By mouth), Amoxicillin/Clavulanate Potassium (By mouth), Urinary Tract Infection in Men (DC), Altered Mental Status (GEN) Referrals: Star Pierre DO [Primary Care Provider] - 01/17/19 1:30 pm Prescriptions: Amoxicillin/Clavulanate [Augmentin] 875 mg PO BIDWM #10 tablet Prescription Printed Metoprolol [Lopressor] 25 mg PO BID #60 tablet Prescription Printed Palliative Quality Palliative Quality: Screen for Code Status: Yes, Screen for Goals of Care: Yes, Screen for Pain: NA, Screen for Nausea/Vomitting: NA Code Status: 01/06/19 04:47 Resuscitation Status: Active [RES] Routine Comment: Resuscitation Status: Full Code <Traci Bejarano - Last Filed: 01/09/19 11:26> Date of Encounter: 01/09/19 Palliative-CN HPI - Data of Consult Requesting Physician: Rodney Del Toro MD Primary Care Provider: Star Pierre DO - Consult Narrative History of present illness: Mr. Gtz is a 88 year old male CC: Rodney Del Toro MD - Time Spent with Patient Time: Total time spent is greater than 50% in coordination of care (as documented) at patient's floor/unit and/or counseling patient: Time with patient: 60 minutes Palliative Care-Exam - Constitutional Vitals: Temp Pulse Resp BP Pulse Ox 98.0 F 73 15 109/66 97 01/08/19 11:52 01/08/19 11:52 01/08/19 11:52 01/08/19 11:52 01/08/19 11:52 Internal Medicine - CN: Reslt - Labs CBC & Chem 7: 01/09/19 01:21 01/09/19 01:21 Labs: BMP 01/08/19 04:07 Sodium 139 Potassium 3.8 Chloride 101 Carbon Dioxide 30 H BUN 22 Creatinine 0.79 Glucose 132 H Calcium 8.0 L - ABG Interpretation ABG results: PT/INR, D-dimer PT 13.3 Seconds (9.4-12.1) H 01/06/19 00:22 - Attending Attestation I examined this patient and my medical decision-making was reviewed with the Resident Physician. I agree with the documented findings, disposition and treatment plan as described except to the extent set forth below. Patient seen with at the bedside, along with resident Dr. Flores. Patient was AAOx2, stated to be feeling fine. Discussed current medical condition, trajectory of illness, treatment options and overall poor prognosis. - is aware of progression of Parkinson's and weakness, and is no longer able to care for pt alone at home. Discussed the findings of aspiration, and patient confirmed no PEG tube and no artificial nutrition. - Discussed code status, as pt was full code. Explained the concept of CPR and that it would not be indicated in pt's health conditions. They voiced undersatanding and decided to transition to DNRCCA and DNI. - is agreeable that pt may benefit from hospice, however for financial reasons (not qualifying for medicaid), she would like to proceed with rehab first, and later may transition once pt is no longer appropriate. - Please see resident's not for more details. Total time spent with patient 75 minutes, with 40 minutes with patient and family in counseling or coordination of care. Palliative Quality Code Status: 01/06/19 04:47 Resuscitation Status: Active [RES] Routine Comment: Resuscitation Status: Full Code 01/08/19 15:44 DNR [Resuscitation Status: Active] [RES] Routine Comment: Resuscitation Status: [id number]
[2019-01-08] MEDS: Ampicillin/Sulbactam 1,500 MG in 0.9 % Sodium Chloride Mini Bag 100 ML IVPB SCH ×2 (15:48→23:02)
[2019-01-09 02:34] LABS: Hematocrit 32.2 % (37.5-50.1); Mean Corpuscular HGB Conc 32.3 g/dL (31.6-35.5); Mean Corpuscular Hemoglobin 29.8 pg (28.0-33.3); Mean Corpuscular Volume 92.3 fL (83.0-100.0); Mean Platelet Volume 10.6 fL (9.4-12.4); Platelet Count 207 K/mcL (140-400); Red Blood Count 3.49 M/mcL (4.19-5.50); Red Cell Distribution Width 13.1 % (11.5-14.5); White Blood Count 8.3 K/mcL (4.3-11.1)
[2019-01-09 02:35] LABS: Hemoglobin 10.4 g/dL (12.9-16.9)
[2019-01-09 02:57] LABS: BUN/Creatinine Ratio 33 (6-26); Blood Urea Nitrogen 21 mg/dL (8-23); Calcium 7.6 mg/dL (8.6-10.3); Carbon Dioxide 27 mEq/L (23-29); Chloride 104 mEq/L (98-107); Glucose 119 mg/dL (70-105); Magnesium 1.9 mg/dL (1.6-2.6); Osmolality,Calculated 288 (280-300); Potassium 3.8 mEq/L (3.5-5.1); Sodium 137 mEq/L (136-145); eGFR For African Americans > 60 (> 60); eGFR For Non-African Americans > 60 (> 60)
[2019-01-09] MEDS: Ampicillin/Sulbactam 1,500 MG in 0.9 % Sodium Chloride Mini Bag 100 ML IVPB SCH (05:18)
[2019-01-09] MEDS: *HR* Heparin 5,000 UNIT/ML VIAL SQ SCH (05:19)
[2019-01-09] MEDS: Multivit/Ca/Min/Fe/FA 1 TAB TABLET PO SCH (05:19)
[2019-01-09 07:08] VITALS: BP 143/67
[2019-01-09] MEDS: cefTRIAXone 1,000 MG in Water for inj. (sterile) 10 ML IVP SCH (07:59)
[2019-01-09] MEDS: D5% in 0.45% NACL 1,000 ML IVC SCH ×2 (07:59→08:43)
[2019-01-09] MEDS: Finasteride 5 MG TABLET PO SCH (08:43)
[2019-01-09] MEDS: Carbidopa/Levodopa 25/100 TABLET PO SCH (08:43)
[2019-01-09] MEDS: Aspirin Enteric Coated 81 MG Tablet PO SCH (08:43)
[2019-01-09] MEDS: FLUoxetine 20 MG CAPSULE PO SCH (08:43)
--- NOTE | 2019-01-09 09:10 | Discharge Summary ---
- NOTES TO OUTPATIENT PROVIDER Notes to Outpatient Provider: f/u with PCP in one week. Orders not resulted at time of discharge: Pending orders 01/06/19 11:49 Culture,Sputum with Gram Stain [RM] Routine Date of Encounter: 01/09/19 Time of Encounter: 09:05 - Discharge Diagnosis (1) Acute delirium Priority: Primary Status: Acute (2) Pneumonia Priority: Primary Status: Acute Qualifiers: Pneumonia type: aspiration pneumonia Laterality: right Lung location: unspecified part of lung Qualified Code(s): J69.0 - Pneumonitis due to inhalation of food and vomit (3) UTI (urinary tract infection) Priority: Primary Status: Acute Qualifiers: Urinary tract infection type: acute cystitis Hematuria presence: without hematuria Qualified Code(s): N30.00 - Acute cystitis without hematuria (4) Weakness Priority: Primary Status: Acute (5) Frequent falls Priority: Secondary Status: Ruled-out (6) Parkinson disease Priority: Secondary Status: Chronic (7) DVT prophylaxis Priority: Secondary Status: Chronic (8) Protein-calorie malnutrition, severe Priority: Secondary Status: Acute (9) Failure to thrive in adult Priority: Secondary Status: Acute Hospital course: Mr. Gtz is a 88 year old male with a past medical history of atrial fibrillation, GERD, Parkinson's presenting to the ED for confusion and general weakness. In the emergency room patient's vital signs were stable, patient's CBC and BMP were within normal limits. Patient's urinalysis showed small leukocyte esterase and moderate blood but negative nitrites concerning for UTI. His chest x-ray showed bilateral opacities right greater than left, CT spine showed no abnormalities and head CT showed no acute intracranial abnormalities. Due to inability to care for himself at home, frequent falls and possible pneumonia he was admitted to the hospital for further management. He was admitted in the hospital and placed him on cardiac monitor technician. He was very dehydrated and does have UTI as well as possible aspiration PNA. His CXR also confirms b/l basal region pneumonia. He was started on empirical abx IV Rocephin initially then later switched to IV Unasyn since he does have aspiration PNA. Pt was evaluated by our speech who did modified barrium swallow and noticed he is high risk for aspiration for any PO intake. Pt's do not wanted to proceed with any other alternate option PEG tube / TPN for nutrition. She understand the risk of aspiration and choking which can lead to a potential , however she still wanted to continue him on regular pureed diet. Pt was evaluated by PT / OT who recommend short term rehab therapy. - Time Spent with Patient Total time spent providing and/or coordinating discharge services: - Discharge Medications Prescriptions: New Amoxicillin/Clavulanate [Augmentin] 875 mg PO BIDWM #10 tablet Metoprolol [Lopressor] 25 mg PO BID #60 tablet Continued Omeprazole [PriLOSEC] 20 mg PO DAILY Aspirin Enteric Coated [Aspirin EC] 81 mg PO DAILY Tamsulosin [Flomax] 0.4 mg PO QAM Sennosides [Natural Laxative] 8.6 mg PO 2XW PRN PRN Reason: Constipation Vit C/E/Zn/Coppr/Lutein/Zeaxan [Preservision Areds 2 Softgel] 1 cap PO BID Garlic 500 mg PO DAILY Multivit-Min/FA/Lycopen/Lutein [Men 50 Plus Multivitamin Tab] 1 tab PO DAILY FLUoxetine HCl [Fluoxetine HCl] 40 mg PO DAILY Finasteride [Proscar] 5 mg PO DAILY Carbidopa/Levodopa [Carbidopa-Levodopa 25-100 Tab] 1 tab PO TID Home Medications: Omeprazole [PriLOSEC] 20 mg PO DAILY 12/11/16 [History] Aspirin Enteric Coated [Aspirin EC] 81 mg PO DAILY 03/22/17 [History] Tamsulosin [Flomax] 0.4 mg PO QAM 03/22/17 [History] Sennosides [Natural Laxative] 8.6 mg PO 2XW PRN 02/10/18 [History] FLUoxetine HCl [Fluoxetine HCl] 40 mg PO DAILY 05/03/18 [History] Garlic 500 mg PO DAILY 05/03/18 [History] Multivit-Min/FA/Lycopen/Lutein [Men 50 Plus Multivitamin Tab] 1 tab PO DAILY 05/03/18 [History] Vit C/E/Zn/Coppr/Lutein/Zeaxan [Preservision Areds 2 Softgel] 1 cap PO BID 05/03/18 [History] Carbidopa/Levodopa [Carbidopa-Levodopa 25-100 Tab] 1 tab PO TID 01/06/19 [History] Finasteride [Proscar] 5 mg PO DAILY 01/06/19 [History] Amoxicillin/Clavulanate [Augmentin] 875 mg PO BIDWM #10 tablet 01/09/19 [Rx] Metoprolol [Lopressor] 25 mg PO BID #60 tablet 01/09/19 [Rx] Allergies/Adverse Reactions: Allergy/AdvReac Type Severity Reaction Status Date / Time No Known Allergies Allergy Verified 05/03/18 17:23 Date of admission: 01/06/19 15:18 Primary care physician: Star Pierre DO Consults: 01/06/19 05:00 Consult to Physical Therapy [CONS] Routine Comment: Evaluate, develop and implement POC Reason for Consult: Recurrent falls. Weakness Does patient have active BEDREST order?: No Is patient medically & hemodynamically stable?: Yes 01/06/19 08:08 Consult to Occupational Therapy [CONS] Routine Comment: Evaluate, develop and implement POC Reason for Consult: rehab Does patient have active BEDREST order?: No Is patient medically & hemodynamically stable?: Yes 01/06/19 08:10 Consult to Full Stack Software Engineer [CONS] Routine Reason for SW Consult: PT RECOMMENDS SNF 01/06/19 10:27 Consult to Speech Therapy [CONS] Routine Comment: Evaluate, develop and implement POC Reason for Consult: AMS. High risk for aspiration Time Notified: 10:27 Call Completed: Yes 01/06/19 11:49 Consult to Nutrition [CONS] Routine Comment: Consulting Provider: NUTRITION Reason for Dietary Consult: PO Supplementation 01/07/19 15:24 Consult to Palliative Care [CONS] Routine Comment: Consulting Provider: [facility] [place] Reason for Consult: Advanced dementia.. May need to talk to pt and family about goals of care Time Notified: 15:26 Call Completed: Yes - Constitutional Vitals: Temp Pulse Resp BP Pulse Ox 98.0 F 113 16 143/67 93 01/09/19 07:05 01/09/19 07:05 01/09/19 07:05 01/09/19 07:05 01/09/19 07:05 General appearance: Present: cooperative, A&O X 1, no acute distress Exam: Gen: Alert, awake, Oriented to self only looks weak and lethargic Chest: Diminished breath sounds B/L, No wheezing, No crackles, No rales Heart: S1S2+ RRR No murmurs Abd: Soft, NT, BS +, No organomegaly Ext: No edema, pulses are palpable, No calf tenderness Neuro : confused.. unable to follow most of the commands due to his AMS with advanced dementia. Skin: No rash. - Patient Status Disposition: Transfer SNF Condition: Good Overall status at discharge: patient is back to baseline - Discharge Instructions Follow Up With: Star Pierre DO [Primary Care Provider] - 01/17/19 1:30 pm - Diet and Activity Activity: increase activity as tolerated Diet: low salt diet
--- NOTE | 2019-01-09 09:13 | Physician Discharge Referral ---
ExtendedCare Referral Info Transfer To: F Provider in Charge after Transfer: PCP Institutional Level of Care: Skilled - Diagnosis (1) Acute delirium Status: Acute (2) Pneumonia Status: Acute (3) UTI (urinary tract infection) Status: Acute (4) Weakness Status: Acute (5) Frequent falls Status: Ruled-out (6) Parkinson disease Status: Chronic (7) DVT prophylaxis Status: Chronic (8) Protein-calorie malnutrition, severe Status: Acute (9) Failure to thrive in adult Status: Acute - Transfer Medications Prescriptions: Amoxicillin/Clavulanate [Augmentin] 875 mg PO BIDWM #10 tablet Prescription Printed Metoprolol [Lopressor] 25 mg PO BID #60 tablet Prescription Printed Home Medications: Omeprazole [PriLOSEC] 20 mg PO DAILY 12/11/16 [History] Aspirin Enteric Coated [Aspirin EC] 81 mg PO DAILY 03/22/17 [History] Tamsulosin [Flomax] 0.4 mg PO QAM 03/22/17 [History] Sennosides [Natural Laxative] 8.6 mg PO 2XW PRN 02/10/18 [History] FLUoxetine HCl [Fluoxetine HCl] 40 mg PO DAILY 05/03/18 [History] Garlic 500 mg PO DAILY 05/03/18 [History] Multivit-Min/FA/Lycopen/Lutein [Men 50 Plus Multivitamin Tab] 1 tab PO DAILY 05/03/18 [History] Vit C/E/Zn/Coppr/Lutein/Zeaxan [Preservision Areds 2 Softgel] 1 cap PO BID 05/03/18 [History] Carbidopa/Levodopa [Carbidopa-Levodopa 25-100 Tab] 1 tab PO TID 01/06/19 [History] Finasteride [Proscar] 5 mg PO DAILY 01/06/19 [History] Amoxicillin/Clavulanate [Augmentin] 875 mg PO BIDWM #10 tablet 01/09/19 [Rx] Metoprolol [Lopressor] 25 mg PO BID #60 tablet 01/09/19 [Rx] Allergies/Adverse Reactions: Allergy/AdvReac Type Severity Reaction Status Date / Time No Known Allergies Allergy Verified 05/03/18 17:23 - Respiratory Orders Smoking Cessation: Smoking cessation has been advised. For more information, call the [place] Tobacco Quit Line at 2-063-DCBR-NOW. CERTIFICATION: I certify that the transfer of the above named patient to an Extended Care Facility is necessary for the continuing treatment of the diagnosis listed. The above information is true and accurate reflection of patient's current condition. Confidential - Redisclosure prohibited without a patient's written consent.
== END 2019-01-09 10:19 | DRG 689 ==
LOC: 3BNU → EMEROOARM → SUATTDRO 02:31 → 3BNU 03:23
PROVIDERS: ADMIT Internal Medicine; ATTEND Family Medicine